=== PATIENT | female | born 1960 | race Caucasian/White ===

== ENCOUNTER 2017-09-11 14:38 | Inpatient (IN) | payer MEDICARE ==
[2017-09-11] MEDS ORDERED: Magnesium 2 GM/NS 0.9% 100 ML 2 GM in Premix Bag 1 BAG IVPB SCH (15:00)
[2017-09-11] MEDS ORDERED: Azithromycin 500 MG in Sodium Chloride 0.9% 250 ML 250 ML IVPB SCH (15:00)
[2017-09-11] MEDS ORDERED: Albuterol Sulfate 2.5 mg/0.5 ml Neb ONE ×3 (15:02)
[2017-09-11 15:03] LABS: Oxyhemoglobin 95.4 % (94.0-97.0); Sodium 142 mmol/L (135-148)
[2017-09-11] MEDS ORDERED: Albuterol Sulfate 2.5 mg/3 ml Neb ONE (15:03)
[2017-09-11 15:07] LABS: Spontaneous Rate 16 min
[2017-09-11 15:08] LABS: Mode BIPAP; Pressure Support 15 cmH2O
[2017-09-11 15:23] LABS: Hematocrit 42.3 % (36.0-47.0); Mean Platelet Volume 8.3 fL (7.4-10.4); Red Blood Cell (RBC) Count 5.06 mill/uL (4.20-5.40); White Blood Cell (WBC) Count 20.2 thou/uL (4.8-10.8)
[2017-09-11] MEDS ORDERED: Ketorolac Tromethamine 30 MG/ML VIAL ONE (15:24)
--- NOTE | 2017-09-11 15:36 | RAD ---
PORTABLE CHEST: HISTORY: Dyspnea. COMPARISON: 03/09/2017 FINDINGS: The CP angles are not included on this study. The visualized lung friend appear well aerated and cl ear with no definite infiltrate seen. The heart is mildly prominent but is accentuated by this proj ection. IMPRESSION: No evidence of acute process. The costophrenic angles are not evaluated. POS: [facility]
[2017-09-11 15:46] LABS: ALT (SGPT) 9 U/L (8-55); AST (SGOT) 9 U/L (5-34); Alkaline Phosphatase 135 U/L (40-150); Anion Gap 14 mmol/L (10-20); BUN (Urea Nitrogen) 13 mg/dL (9.8-20.1); Bilirubin, Total 0.3 mg/dL (0.2-1.2); Calc. Creatinine Clearance 0 mL/min (70-130); Calcium 9.3 mg/dL (7.8-10.44); Carbon Dioxide 29 mmol/L (22-29); Chloride 102 mmol/L (98-107); Estimated GFR-MDRD Greater than 90; Protein, Total 7.7 g/dL (6.0-8.3)
[2017-09-11 15:51] LABS: Troponin I 0.012 ng/mL (< 0.028)
[2017-09-11 15:56] LABS: Band 10 % (5-11); Neutrophil 79 % (42-75)
[2017-09-11] MEDS ORDERED: cefTRIAXone\\ROCEPHIN 1 GM VIAL ONE (16:30)
[2017-09-11] MEDS ORDERED: cefTRIAXone\\ROCEPHIN 1 GM, Admixture Fee 1 EACH in Sodium Chloride 0.9% 100 ML IVPB SCH ×2 (16:45→20:00)
[2017-09-11 17:20] LABS: Oxyhemoglobin 87.2 % (94.0-97.0); Sodium 141 mmol/L (135-148)
[2017-09-11 17:23] LABS: Mode BIPAP; Modified Allen's Test POSITIVE; Pressure Support 15 cmH2O
[2017-09-11] MEDS ORDERED: Acetaminophen 650 MG Suppository ONE (17:27)
[2017-09-11] MEDS ORDERED: Acetaminophen 325 MG TAB PO PRN ×2 (18:07→18:09)
[2017-09-11] MEDS ORDERED: Ondansetron HCl/PF 4 MG/2 ML Vial IVP PRN ×2 (18:07→18:09)
[2017-09-11] MEDS ORDERED: HYDROcodone/Acetaminophen 5/325 mg Tablet PO PRN ×3 (18:07→18:09)
[2017-09-11] MEDS ORDERED: Ondansetron ODT 4 MG TAB SL PRN (18:07)
[2017-09-11] MEDS ORDERED: Lorazepam 2 MG/ML VIAL SLOW IVP PRN (18:09)
[2017-09-11] MEDS ORDERED: traZODone HCl 50 MG TAB PO PRN (18:09)
[2017-09-11] MEDS ORDERED: hydrALAZINE 20 MG/ML VIAL SLOW IVP PRN (18:09)
[2017-09-11] MEDS ORDERED: Acetaminophen 650 MG Suppository PR PRN (18:09)
[2017-09-11] MEDS ORDERED: Mag-Al 1200 mg/1200 mg/30 ML UDCUP PO PRN (18:09)
[2017-09-11] MEDS ORDERED: Lorazepam 0.5 MG TAB PO PRN (18:14)
[2017-09-11 18:21] LABS: Troponin I Less than 0.010 ng/mL (< 0.028)
[2017-09-11] MEDS ORDERED: Propofol 1,000 MG/100 ML VIAL IV ONE (18:42)
[2017-09-11] MEDS: Midazolam HCl 2 mg/2 ml Vial ONE ×2 (18:46→18:47)
[2017-09-11] MEDS ORDERED: Sterile Water 10 ML ONE (18:49)
[2017-09-11] MEDS ORDERED: Vecuronium 10 MG VIAL ONE (18:49)
[2017-09-11] MEDS: Sodium Chloride 0.9% 1,000 ML IV SCH (19:00)
[2017-09-11] MEDS: Famotidine/PF 20 mg/2ml Vial SLOW IVP SCH (20:01)
[2017-09-11 21:37] LABS: Troponin I Less than 0.010 ng/mL (< 0.028)
--- NOTE | 2017-09-11 21:42 | HP ---
PRIMARY CARE PHYSICIAN: Dr. Wayne. LICENSED NURSING ASSISTANT: Dr. Prasad. CHIEF COMPLAINT: Shortness of breath. HISTORY OF PRESENT ILLNESS: The history of present illness is more or less limited as the patient i s currently on BiPAP and has some significant dyspnea, but the patient has a history of fairly sever e COPD in fact, she was recently admitted to our facility back in March for her COPD exacerbation in [facility] case, the patient required mechanical intubation and tracheostomy and was eventually discharged to LTAC. She says she went home in May after a prolonged hospitalization both in a local LTAC and then she was eventually transferred to [facility] in [place], [place]. She said she had been doing f airly well at home and she is on home oxygen as needed as well as a BiPAP that she has at home until Thursday when she says that her son got sick and \\\\"brought it home to the rest of the family.\\\\" Sh lani says that she has been coughing with productive brown sputum, feeling achy all over with subjectiv e fever and chills. She felt confused and dehydrated and for this reason she came to the ER. She c alled EMS in order to be transported to the hospital. When EMS arrived, her oxygen saturations were in the 60s. She was placed on BiPAP in which her O2 sats improved to the 80s and 90s and she had a gas in which her pH was acidotic at 7.25 and she was hypercapnic and she is being admitted for jez re COPD exacerbation. REVIEW OF SYSTEMS: Constitutional: She has had subjective fever and chills. No night sweats or we ight loss. HEENT: She said she has had some headache, but no sore throat. She has had rhinorrhea, but no neck pain, no adenopathy. Pulmonary: As the history of present illness. Cardiovascular: She says she has had pain in her chest, but she says she \\\\"hurts all over.\\\\"No PND, no orthopnea. Gastrointestinal: No abdominal pain, no nausea, no vomiting, no change in bowels. Genitourinary: No urinary frequency, hematuria, no hesitancy. Neurologic: No focal weakness, numbness, no seizur es. Psychiatric: No symptoms of anxiety or depression. Skin and integument: No skin changes. No rash. 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 PAST SURGICAL HISTORY: She has had a total abdominal hysterectomy. ALLERGIES: No known drug allergies. SOCIAL HISTORY: She is . She is a former smoker; however, she does admit to occasionally \\\\ "falling off the wagon\\\\" with cigarettes and smokes off and on. Denies any alcohol use. FAMILY HISTORY: Significant for hypertension, diabetes, and asthma. MEDICATIONS: Include ProAir and nebulizer and a blood pressure medication. The medications from [facility] emergency room which she says she gave the ER nurse include amlodipine 2.5 mg daily, hydrochlorot hiazide 25 mg daily, trazodone 50 mg once a day and DuoNebs. PHYSICAL EXAMINATION: GENERAL: She is alert and oriented. She appears to be in some distress. VITAL SIGNS: Her blood pressure was 108/80, heart rate is 126, respiratory rate of 28. HEENT: Pupils are equal, round, and reactive. Extraocular muscles are intact. Sclerae are anicter ic. Throat no erythema, no exudates. NECK: No adenopathy, no bruits. LUNGS: She has got decrease in air movement with some minimal wheezing, no rales. CARDIOVASCULAR: She has a normal S1, S2. No S3 or S4. No murmurs, clicks or rubs. ABDOMEN: Obese, soft, nontender, nondistended. Positive for bowel sounds. No rebound, no guarding . EXTREMITIES: There is some mild edema. NEUROLOGICAL: The exam is nonfocal. LABORATORY DATA: White blood cell count is 20.2, hemoglobin 12.6, hematocrit is 42.3, platelet coun t is 359. Sodium 141, potassium 4.1, chloride is 102, CO2 is 29, BUN of 13, creatinine 0.65, glucos e is 168. ASSESSMENT AND PLAN: This is a 57-year-old female that is presenting with acute hypercapnic respira tory failure with hypoxemia as well, likely as a result of chronic obstructive pulmonary disease exa cerbation. Chest x-ray has findings consistent with chronic obstructive pulmonary disease without a ny evidence of any acute infiltrate. Given the severity of her acute presentation as well as was [facility] severity of her past presentation, she is being admitted to the [facility]. I have notified Pulmonary C ritical Care [employer] and have made a formal consultation. We will repeat her ABG now that she has h ad some time on BiPAP. I have discussed code status with the patient and she would like to remain a FULL CODE. She states that if she were to decompensate, she would like to be placed on a ventilato r. She will be placed in the IMCU and continue BiPAP for now. She will be placed on IV steroids as well as empiric IV antibiotics. Placed her on deep venous thrombosis and gastrointestinal prophyla xis and currently will place her on a p.r.n. medication for blood pressure as well as some maintenan ce fluids.
[2017-09-11] MEDS ORDERED: DISCONTINUE PREVIOUS NARCOTIC PAIN MEDICATIONS AND BENZODIAZEPINES FS SCH (22:47)
[2017-09-12] MEDS: Propofol 1,000 MG/100 ML VIAL IV PRN ×5 (01:15→20:52)
[2017-09-12 05:20] LABS: Band 3 % (5-11); Mean Platelet Volume 8.4 fL (7.4-10.4); Neutrophil 90 % (42-75); Red Blood Cell (RBC) Count 4.58 mill/uL (4.20-5.40); White Blood Cell (WBC) Count 15.9 thou/uL (4.8-10.8)
[2017-09-12 05:27] LABS: Anion Gap 17 mmol/L (10-20); BUN (Urea Nitrogen) 15 mg/dL (9.8-20.1); Calc. Creatinine Clearance 136 mL/min (70-130); Calcium 8.7 mg/dL (7.8-10.44); Carbon Dioxide 23 mmol/L (22-29); Chloride 107 mmol/L (98-107); Estimated GFR-MDRD Greater than 90
[2017-09-12] MEDS ORDERED: Spiriva 18 MCG CAP (Box of 5 Caps) INH SCH (07:00)
[2017-09-12 07:10] LABS: Mechanical Tidal Volume 400 ml; Modified Allen's Test POSITIVE; Oxyhemoglobin 94.9 % (94.0-97.0); Pressure Support 10 cmH2O; Sodium 143 mmol/L (135-148); Vent YES
--- NOTE | 2017-09-12 07:10 | CON ---
DATE OF CONSULTATION: 09/11/2017 HISTORY OF PRESENT ILLNESS: Lisa is a 57-year-old female, who was intubated earlier this year. A pparently, she had a tracheostomy, went to an [facility] hospital. She presented today with respiratory distress. I was consulted by the Hospitalist. Her blood gas failed to improve with noninvasive ventilation in the ER. Her pH was 7.25 on presenta tion, 7.26 on followup blood gas 4-1/2 hours later. The first blood gas was done at 1500 hours. Re commended intubation. PAST MEDICAL HISTORY: Remarkable for; 1. Being field intubated in 02/2017 after being seen by 3 days earlier and diagnosed with bronchiti s in the Emergency Department over at [place] 2. History of lipid disorder. 3. History of obstructive lung disease. 4. History of trach and a PEG. 5. History of hypertension. 6. History of hysterectomy. 7. History of obesity. SOCIAL HISTORY: She is a former smoker, apparently does not smoke and does not drink. ALLERGIES: Reports no drug allergies. FAMILY HISTORY: Negative for lung disease at an early age. PHYSICAL EXAMINATION: VITAL SIGNS: Blood pressure is in the 120s, heart rate was 130, respiratory rate was in the 30s. GENERAL: She is using all her accessory muscles. She is speaking in three-word sentences. HEENT: Pupils are equal. Sclerae is anicteric. NECK: Supple. No lymphadenopathy. LUNGS: Remarkable for distant breath sounds. HEART: Regular rhythm. ABDOMEN: Soft. EXTREMITIES: Without asymmetry. IMAGING AND LABORATORY DATA: Chest radiograph may show a left basilar infiltrate. White count 20.2 , hemoglobin 12.6, platelets 359,000. Electrolytes are normal. IMPRESSION: 1. Respiratory failure. 2. History of tracheostomy and PEG. 3. ? left lower lobe pneumonia. 4. Chronic obstructive pulmonary disease. PLAN: Intubation support, antimicrobial therapy, steroids, nebulizer treatments.
[2017-09-12 07:11] LABS: Mode SIMV
[2017-09-12] MEDS: Fentanyl 20 MCG/ML 250 ML IVPB SCH (07:13)
[2017-09-12] MEDS: Lorazepam 2 MG/ML VIAL SLOW IVP PRN (07:37)
[2017-09-12] MEDS: Sodium Chloride 0.9% 1,000 ML IV SCH ×2 (07:38→15:00)
--- NOTE | 2017-09-12 07:42 | OP ---
DATE: 09/11/2017 PROCEDURE: Fiberoptic sedation. Patient was sedated with 1 mg of Versed. Bronchoscope was introduced and easily passed into her tra nicolas. The vocal cords appeared normal. I did not see any subglottic stenosis. I had a little diff iculty advancing the endotracheal tube over the scope, but eventually, was able to get the endotrach eal tube in proper position at 24 cm above the darwin. She was then sedated with a total of 4 Verse d and started on propofol drip and then chemically paralyzed with vecuronium once she was sedated. I met with her and answered all of his questions. Critical care time 40 minutes, independent of the procedure.
--- NOTE | 2017-09-12 08:01 | PDOC.PN ---
- Subjective Encounter Start Date: 09/12/17 Encounter Start Time: 08:00 Ms. Gonzalez is awake and alert. She indicates that she is comfortable on the ventilator. - Objective Resuscitation Status: Resuscitation Status FULL:Full Resuscitation MAR Reviewed: Yes Vital Signs & Weight: Vital Signs (12 hours) Temp Pulse Resp BP Pulse Ox 09/12/17 07:02 87 128/69 09/12/17 06:59 82 25 H 98 09/12/17 06:00 24 H 09/12/17 04:00 98.7 F 09/12/17 02:32 87 09/12/17 02:00 17 09/12/17 00:50 92 22 H 99 09/12/17 00:00 98.8 F 17 09/11/17 22:38 96 09/11/17 22:00 17 Most Recent Monitor Data Heart Rate from ECG 92 NIBP 131/65 NIBP BP-Mean 84 Respiration from ECG 25 SpO2 96 I&O: 09/11/17 09/12/17 09/13/17 06:59 06:59 06:59 Intake Total 1108 Output Total 675 Balance 433 Result Diagrams: 09/12/17 04:15 09/12/17 04:14 Phys Exam - Physical Examination HEENT: PERRLA Respiratory: no rales + coarse breath sounds, and mild expiratory wheeze Cardiovascular: RRR, no significant murmur, no rub Gastrointestinal: soft, non-tender, positive bowel sounds Musculoskeletal: no edema Dx/Plan (1) COPD exacerbation Code(s): J44.1 - CHRONIC OBSTRUCTIVE PULMONARY DISEASE W (ACUTE) EXACERBATION Status: Acute (2) Acute respiratory failure with hypoxia and hypercapnia Code(s): J96.01 - ACUTE RESPIRATORY FAILURE WITH HYPOXIA; J96.02 - ACUTE RESPIRATORY FAILURE WITH HYPERCAPNIA Status: Acute (3) Obesity Code(s): E66.9 - OBESITY, UNSPECIFIED Status: Acute (4) Hypertension Code(s): I10 - ESSENTIAL (PRIMARY) HYPERTENSION Status: Chronic - Plan * Acute on chronic respiratory failure- She was place on mechanical ventilation last night * Continue IV steroids, and IV antibiotics * Neb treatment . * Nutritional support- consider tube feeds if she remains intubated * HTN- blood pressure is controlled- continue PRN medication as needed
--- NOTE | 2017-09-12 08:43 | RAD ---
CHEST 1 VIEW: Date: 09/11/17 HISTORY: Respiratory distress. FINDINGS: Interval placement of endotracheal and nasogastric tube. Normal cardiac silhouette. Pulmonary vessel s are prominent. Patchy reticulonodular opacities. No pleural effusion or pneumothorax. IMPRESSION: Volume overload. Continued surveillance. POS: [facility]
[2017-09-12] MEDS ORDERED: FLU VACC QS2017-18 36 mo. & older 0.5 ML SYRINGE IM ONE (09:00)
[2017-09-12] MEDS: Enoxaparin Sodium 40 MG/0.4 ML SYRINGE SC SCH (09:12)
[2017-09-12] MEDS: Famotidine/PF 20 mg/2ml Vial SLOW IVP SCH ×2 (09:13→20:51)
[2017-09-12] MEDS: Azithromycin 500 MG in Sodium Chloride 0.9% 250 ML 250 ML IVPB SCH (15:04)
--- NOTE | 2017-09-12 15:08 | PRG ---
DATE OF SERVICE: 09/11/2017 SUBJECTIVE: Linda Gonzalez will awaken and move all of her extremities. Her was at the beds rohit. OBJECTIVE: VITAL SIGNS: Heart rate is in the 90s, blood pressure 103/64, respiratory rate was in the teens. LUNGS: She actually has more audible breath sounds today with wheezes of greater intensity, suggest ing she started to open up. Her inspiratory time had to be shortened to allow for her to exhale. HEART: Regular rhythm. ABDOMEN: Soft. LABORATORY DATA: White count 15.9, hemoglobin 11.1, platelets 291: Sodium 142, potassium 4.8, chlo ride 107, bicarbonate 23, BUN 15, creatinine 0.6, glucose 177. A pH 7.36, CO2 of 51, pO2 of 71. IMPRESSION: 1. Respiratory failure. 2. Chronic obstructive pulmonary disease exacerbation, likely triggered by viral illness in multipl e family members. 3. History of tracheostomy earlier this year. Start her on some nutritional support with [facility] equivalent. 4. Continue steroids and antimicrobial therapy. Critical care time was 30 minutes.
[2017-09-12] MEDS: cefTRIAXone\\ROCEPHIN 2 GM, Admixture Fee 1 EACH in Sodium Chloride 0.9% 100 ML IVPB SCH (16:10)
[2017-09-12] MEDS ORDERED: cefTRIAXone\\ROCEPHIN 1 GM, Admixture Fee 1 EACH in Sodium Chloride 0.9% 100 ML IVPB SCH (17:00)
[2017-09-13] MEDS: Propofol 1,000 MG/100 ML VIAL IV PRN ×5 (01:02→23:24)
[2017-09-13 05:13] LABS: Band 3 % (5-11); Hematocrit 35.8 % (36.0-47.0); Mean Platelet Volume 8.2 fL (7.4-10.4); Neutrophil 89 % (42-75); Red Blood Cell (RBC) Count 4.29 mill/uL (4.20-5.40); White Blood Cell (WBC) Count 14.2 thou/uL (4.8-10.8)
[2017-09-13] MEDS: Sodium Chloride 0.9% 1,000 ML IV SCH ×2 (05:53→21:33)
[2017-09-13 07:17] LABS: Oxyhemoglobin 95.4 % (94.0-97.0); Sodium 142 mmol/L (135-148)
[2017-09-13] MEDS: Lorazepam 2 MG/ML VIAL SLOW IVP PRN ×2 (07:22→12:23)
[2017-09-13 07:54] LABS: Mechanical Tidal Volume 400 ml; Modified Allen's Test POSITIVE; Pressure Support 10 cmH2O; Vent YES
[2017-09-13 07:55] LABS: Mode SIMV.PSV
[2017-09-13] MEDS: Famotidine/PF 20 mg/2ml Vial SLOW IVP SCH ×2 (08:34→21:34)
[2017-09-13] MEDS: Enoxaparin Sodium 40 MG/0.4 ML SYRINGE SC SCH (08:34)
--- NOTE | 2017-09-13 08:59 | RAD ---
1 VIEW CHEST: Date: 09/13/17 COMPARISON: 09/12/17. HISTORY: Respiratory distress. Ventilated patient. FINDINGS: Stable endotracheal and nasogastric tube. Slightly improved aeration of lung parenchyma. Reticulonod ular opacities are slightly less evident. Stable cardiac silhouette. No pleural effusion or pneumoth orax. IMPRESSION: Slight improved aeration of lung parenchyma. POS: [facility]
--- NOTE | 2017-09-13 09:53 | PDOC.PN ---
- Subjective Encounter Start Date: 09/13/17 Encounter Start Time: 09:52 Ms. Gonzalez is intubated, she is awake and alert. - Objective Resuscitation Status: Resuscitation Status FULL:Full Resuscitation MAR Reviewed: Yes Vital Signs & Weight: Vital Signs (12 hours) Temp Pulse Resp BP Pulse Ox 09/13/17 08:00 98.7 F 09/13/17 06:47 74 114/66 09/13/17 06:43 73 10 L 99 09/13/17 06:00 10 L 09/13/17 04:00 98.8 F 10 L 09/13/17 02:41 85 09/13/17 02:00 10 L 09/13/17 01:00 98.6 F 09/13/17 00:41 72 09/13/17 00:40 71 18 99 09/13/17 00:00 10 L 09/12/17 22:22 89 09/12/17 21:58 10 L Weight Admit Weight 179 lb 10.816 oz Weight 177 lb 7.554 oz Most Recent Monitor Data Heart Rate from ECG 90 NIBP 117/67 NIBP BP-Mean 91 Respiration from ECG 16 SpO2 90 I&O: 09/12/17 09/13/17 09/14/17 06:59 06:59 06:59 Intake Total 1108 2875.4 Output Total 675 850 70 Balance 433 2025.4 -70 Result Diagrams: 09/13/17 04:02 09/12/17 04:14 Phys Exam - Physical Examination HEENT: PERRLA Respiratory: wheezing present + bilateral expiratory wheeze, no rales Cardiovascular: RRR, no significant murmur + S4? Gastrointestinal: soft, positive bowel sounds trace edema Dx/Plan (1) COPD exacerbation Code(s): J44.1 - CHRONIC OBSTRUCTIVE PULMONARY DISEASE W (ACUTE) EXACERBATION Status: Acute (2) Acute respiratory failure with hypoxia and hypercapnia Code(s): J96.01 - ACUTE RESPIRATORY FAILURE WITH HYPOXIA; J96.02 - ACUTE RESPIRATORY FAILURE WITH HYPERCAPNIA Status: Acute (3) Obesity Code(s): E66.9 - OBESITY, UNSPECIFIED Status: Acute (4) Hypertension Code(s): I10 - ESSENTIAL (PRIMARY) HYPERTENSION Status: Chronic - Plan * Acute on chronic respiratory failure- due to COPD exacerbation * Continue Ventilator support as per Pulmonary * Continue Steroids IV * Continue empiric Antibiotics for Respiratory Coverage * HTN- blood pressure is stable.
[2017-09-13] MEDS: Fentanyl 20 MCG/ML 250 ML IVPB SCH (14:25)
--- NOTE | 2017-09-13 14:51 | PRG ---
DATE OF SERVICE: 09/13/2017 Critical care time 30 minutes.
--- NOTE | 2017-09-13 16:35 | PRG ---
DATE OF SERVICE: 09/13/2017 SUBJECTIVE: She is sedated for ventilation; she will awaken and move her extremities. OBJECTIVE: GENERAL: She is in no distress. VITAL SIGNS: Heart rate is 95, blood pressure 121/69. She is afebrile, respiratory rate 16. She i s still has a 6 to 7-second exhale time, wheezes are still audible; however, there were not audible on presentation when she is intubated. HEART: Regular rhythm. ABDOMEN: Soft. EXTREMITIES: Without asymmetry. LABORATORY DATA: White count 14.3, hemoglobin 10.4, and platelets 287. Sodium 142, potassium 4.8, chloride 107, bicarbonate 23, BUN 15, creatinine 0.6, pH 7.26, pCO2 67, pO2 93. IMPRESSION: 1. Chronic obstructive pulmonary disease exacerbation with respiratory failure. 2. Bilateral patchy infiltrates most likely secondary to mucus plugging and atelectasis, given that they are improving on today's radiograph. 3. History of recent tracheostomy for respiratory failure and long period of time in the hospital w ith followup LTAC hospitalization, her states she is doing well prior to this event, still f elt that this is likely triggered by viral illness. She is not improving quickly, met the a nd updated him.
[2017-09-13] MEDS: Azithromycin 500 MG in Sodium Chloride 0.9% 250 ML 250 ML IVPB SCH (16:40)
[2017-09-13] MEDS: cefTRIAXone\\ROCEPHIN 2 GM, Admixture Fee 1 EACH in Sodium Chloride 0.9% 100 ML IVPB SCH (16:40)
[2017-09-14 04:24] LABS: Band 1 % (5-11); Hematocrit 35.8 % (36.0-47.0); Mean Platelet Volume 8.1 fL (7.4-10.4); Metamyelocyte 1 % (0-0); Neutrophil 84 % (42-75); Red Blood Cell (RBC) Count 4.25 mill/uL (4.20-5.40); White Blood Cell (WBC) Count 11.8 thou/uL (4.8-10.8)
[2017-09-14] MEDS: Propofol 1,000 MG/100 ML VIAL IV PRN ×4 (04:24→20:43)
[2017-09-14 07:12] LABS: Oxyhemoglobin 95.7 % (94.0-97.0); Sodium 142 mmol/L (135-148)
[2017-09-14 07:15] LABS: Mechanical Tidal Volume 400 ml; Mode SIMV.PSV; Modified Allen's Test POSITIVE; Pressure Support 10 cmH2O; Vent YES
[2017-09-14] MEDS: Enoxaparin Sodium 40 MG/0.4 ML SYRINGE SC SCH (07:22)
[2017-09-14] MEDS: Famotidine/PF 20 mg/2ml Vial SLOW IVP SCH ×2 (07:22→20:43)
--- NOTE | 2017-09-14 07:55 | PRG ---
DATE OF SERVICE: 09/14/2017 Thirty-five minutes critical care time. SUBJECTIVE: The patient remains intubated on mechanical ventilation. She will wake up. She moves all 4 extremities spontaneously. PHYSICAL EXAMINATION: VITAL SIGNS: Temperature is 98.8, pulse 96, blood pressure 140/70, total intake for 24 hours 3703, output 945, weight 176 pounds. HEENT: Unremarkable. NECK: No JVD. LUNGS: Poor air movement bilaterally. CARDIAC: S1, S2, slightly tachycardic. ABDOMEN: Soft, nontender. She is tolerating tube feeds. EXTREMITIES: No clubbing, cyanosis, or edema. LABORATORY DATA: White blood cell count 11.8, hematocrit 35.8, platelet count 277. PH 7.24, pCO2 o f 81, pO2 of 88 on SIMV rate 10, tidal volume 400, PEEP 5, pressure support 10, FiO2 of 30%. Sodium 142, potassium 4.8, chloride 107, CO2 of 23, BUN 15, creatinine 0.6, glucose 177. ASSESSMENT: 1. Acute respiratory failure, requiring mechanical ventilation. 2. Chronic obstructive pulmonary disease with exacerbation. 3. History of previous tracheostomy placement. PLAN: 1. I have adjusted the ventilator settings, which encompassed increasing her tidal volume. 2. Continue IV steroids. 3. Continue enteral tube feeds. 4. I feel like it will be many days until the patient can be extubated.
[2017-09-14] MEDS: Sodium Chloride 0.45% 1,000 ML IV SCH (08:36)
--- NOTE | 2017-09-14 09:13 | PDOC.PN ---
- Subjective Encounter Start Date: 09/14/17 Encounter Start Time: 09:11 Ms. Gonzalez is intubated and sedated. No complaints voiced. - Objective Resuscitation Status: Resuscitation Status FULL:Full Resuscitation MAR Reviewed: Yes Vital Signs & Weight: Vital Signs (12 hours) Temp Pulse Resp BP Pulse Ox 09/14/17 08:00 98.9 F 10 L 09/14/17 07:25 98.9 F 98 16 97 09/14/17 06:34 90 134/76 09/14/17 06:32 87 11 L 99 09/14/17 06:00 10 L 09/14/17 04:00 98.8 F 10 L 09/14/17 02:13 93 09/14/17 02:00 16 09/14/17 00:26 82 10 L 97 09/14/17 00:00 98.8 F 10 L 09/13/17 22:11 78 09/13/17 22:00 10 L Weight Admit Weight 179 lb 10.816 oz Weight 176 lb 5.917 oz Most Recent Monitor Data Heart Rate from ECG 88 NIBP 152/70 NIBP BP-Mean 122 Respiration from ECG 11 SpO2 99 I&O: 09/13/17 09/14/17 09/15/17 06:59 06:59 06:59 Intake Total 2875.4 3703.2 221 Output Total 850 945 215 Balance 2025.4 2758.2 6 Result Diagrams: 09/14/17 03:30 09/12/17 04:14 Phys Exam - Physical Examination HEENT: PERRLA Respiratory: wheezing present no rales Cardiovascular: RRR, no significant murmur, no rub Gastrointestinal: soft, non-tender, positive bowel sounds Musculoskeletal: no edema Dx/Plan (1) COPD exacerbation Code(s): J44.1 - CHRONIC OBSTRUCTIVE PULMONARY DISEASE W (ACUTE) EXACERBATION Status: Acute (2) Acute respiratory failure with hypoxia and hypercapnia Code(s): J96.01 - ACUTE RESPIRATORY FAILURE WITH HYPOXIA; J96.02 - ACUTE RESPIRATORY FAILURE WITH HYPERCAPNIA Status: Acute (3) Obesity Code(s): E66.9 - OBESITY, UNSPECIFIED Status: Acute (4) Hypertension Code(s): I10 - ESSENTIAL (PRIMARY) HYPERTENSION Status: Chronic - Plan * Acute on chronic respiratory failure- due to COPD exacerbation * Continue Neb treatment * Continue Steroids * HTN- blood pressure is stable overall. Continue PRN Hydralazine as needed * Slowly weaning from Ventilator as per Pulmonary and Critical Care team.
--- NOTE | 2017-09-14 10:45 | RAD ---
PORTABLE AP CHEST X-RAY: 09/14/2017 HISTORY: On ventilator. Follow-up evaluation. COMPARISON: 09/13/2017 FINDINGS: Endotracheal tube and nasogastric tube are unchanged in position. Cardiac silhouette is within norm al limits. Nonspecific increased linear densities in the upper lung zones are again seen and unchan ged. There has been no significant interval change when compared to the prior exam. IMPRESSION: Stable chest. POS: [facility]
[2017-09-14] MEDS: Lorazepam 2 MG/ML VIAL SLOW IVP PRN ×2 (10:58→20:50)
[2017-09-14] MEDS: Azithromycin 500 MG in Sodium Chloride 0.9% 250 ML 250 ML IVPB SCH (16:44)
[2017-09-14] MEDS: cefTRIAXone\\ROCEPHIN 2 GM, Admixture Fee 1 EACH in Sodium Chloride 0.9% 100 ML IVPB SCH (17:01)
[2017-09-15] MEDS: Sodium Chloride 0.45% 1,000 ML IV SCH (00:05)
[2017-09-15] MEDS: Propofol 1,000 MG/100 ML VIAL IV PRN ×6 (01:20→23:51)
[2017-09-15 05:00] LABS: Hematocrit 35.4 % (36.0-47.0); Red Blood Cell (RBC) Count 4.26 mill/uL (4.20-5.40)
[2017-09-15 05:24] LABS: Band 1 % (5-11); Neutrophil 81 % (42-75)
[2017-09-15 07:28] LABS: Oxyhemoglobin 93.9 % (94.0-97.0); Sodium 139 mmol/L (135-148)
[2017-09-15] MEDS ORDERED: Furosemide 40 MG/4 ML VIAL SLOW IVP SCH (07:30)
[2017-09-15] MEDS: Fentanyl 20 MCG/ML 250 ML IVPB SCH (07:36)
[2017-09-15] MEDS: Famotidine/PF 20 mg/2ml Vial SLOW IVP SCH (07:37)
[2017-09-15] MEDS: Enoxaparin Sodium 40 MG/0.4 ML SYRINGE SC SCH (07:37)
--- NOTE | 2017-09-15 07:52 | PRG ---
DATE OF SERVICE: 09/15/2017 Thirty-five minutes critical care time. SUBJECTIVE: The patient remains intubated on mechanical ventilation. There have been no acute fernandez ges overnight. PHYSICAL EXAMINATION: VITAL SIGNS: Temperature is 98.4, pulse 85, blood pressure 153/79, 24-hour intake 3610 and output 2 602, weight currently 191 pounds. HEENT: Unremarkable. NECK: No JVD. LUNGS: Expiratory wheezing bilaterally, prolonged expiratory phase on mechanical ventilation wavefo vivian. CARDIAC: S1 and S2 regular. ABDOMEN: Soft, nontender, nondistended. EXTREMITIES: No clubbing or cyanosis. Trace edema. LABORATORY DATA: White blood cell count 13, hematocrit 35.4, platelet count 253. Sodium 142, potas sium 4.8, chloride 107, CO2 of 23, BUN 15, creatinine 0.6, glucose 177. ASSESSMENT: 1. Acute respiratory failure, requiring mechanical ventilation. 2. Chronic obstructive pulmonary disease with exacerbation. 3. History of previous tracheostomy placement. PLAN: 1. Continue mechanical ventilation until her air trapping resolves. 2. Continue IV steroids. 3. Continue enteral tube feeds. 4. One dose diuretics.
--- NOTE | 2017-09-15 08:06 | PDOC.PN ---
- Subjective Encounter Start Date: 09/15/17 Encounter Start Time: 08:04 Ms. Gonzalez is intubated and sedated. When sedation is lifted she is awake, and can be a bit agitated. - Objective Resuscitation Status: Resuscitation Status FULL:Full Resuscitation MAR Reviewed: Yes Vital Signs & Weight: Vital Signs (12 hours) Temp Pulse Resp BP Pulse Ox 09/15/17 07:06 85 155/84 H 09/15/17 07:02 78 10 L 99 09/15/17 06:00 98.4 F 13 09/15/17 04:00 10 L 09/15/17 02:40 55 L 09/15/17 02:00 10 L 09/15/17 00:00 98.4 F 09/14/17 23:29 57 L 130/56 L 09/14/17 23:28 99 Weight Admit Weight 179 lb 10.816 oz Weight 191 lb 2.252 oz Most Recent Monitor Data Heart Rate from ECG 85 NIBP 153/79 NIBP BP-Mean 109 Respiration from ECG 21 SpO2 98 I&O: 09/14/17 09/15/17 09/16/17 06:59 06:59 06:59 Intake Total 3703.2 3610.2 Output Total 945 2602 Balance 2758.2 1008.2 Result Diagrams: 09/15/17 03:59 09/12/17 04:14 Phys Exam - Physical Examination HEENT: PERRLA Respiratory: no wheezing + occasional rhonchi Cardiovascular: RRR, no significant murmur Gastrointestinal: soft, non-tender, positive bowel sounds Musculoskeletal: edema present trace pedal edema Dx/Plan (1) COPD exacerbation Code(s): J44.1 - CHRONIC OBSTRUCTIVE PULMONARY DISEASE W (ACUTE) EXACERBATION Status: Acute (2) Acute respiratory failure with hypoxia and hypercapnia Code(s): J96.01 - ACUTE RESPIRATORY FAILURE WITH HYPOXIA; J96.02 - ACUTE RESPIRATORY FAILURE WITH HYPERCAPNIA Status: Acute (3) Obesity Code(s): E66.9 - OBESITY, UNSPECIFIED Status: Acute (4) Hypertension Code(s): I10 - ESSENTIAL (PRIMARY) HYPERTENSION Status: Chronic - Plan * Acute on chronic respiratory failure with hypoxemia, and hypercapnia- due to COPD exacerbation- continue Vent support * Slowly weaning as per Dr. Prasad * HTN- blood pressure has been more or less stable * Nutritional support - tube feeds
[2017-09-15 08:11] LABS: Mechanical Tidal Volume 450 ml; Mode SIMV.PSV; Modified Allen's Test POSITIVE; Pressure Support 10 cmH2O; Vent YES
[2017-09-15 09:42] LABS: Calcium 9.1 mg/dL (7.8-10.44); Chloride 96 mmol/L (98-107)
--- NOTE | 2017-09-15 09:42 | RAD ---
PORTABLE AP CHEST: Date: 09/15/17 HISTORY: On ventilator. Follow-up evaluation. COMPARISON: 09/14/17. FINDINGS: Endotracheal tube and nasogastric tube remain in place and unchanged in position. Cardiac silhouette and pulmonary vasculature are within normal limits. Again noted are mild increased interstitial den sities in the lung apices bilaterally. There has been no interval change from prior exam. IMPRESSION: Stable chest. POS: [facility]
[2017-09-15 09:44] LABS: Anion Gap 12 mmol/L (10-20); Carbon Dioxide 34 mmol/L (22-29)
[2017-09-15 09:46] LABS: Calc. Creatinine Clearance 150 mL/min (70-130); Estimated GFR-MDRD Greater than 90
[2017-09-15 09:47] LABS: BUN (Urea Nitrogen) 13 mg/dL (9.8-20.1)
[2017-09-15] MEDS: Azithromycin 500 MG in Sodium Chloride 0.9% 250 ML 250 ML IVPB SCH (15:50)
[2017-09-15] MEDS: cefTRIAXone\\ROCEPHIN 2 GM, Admixture Fee 1 EACH in Sodium Chloride 0.9% 100 ML IVPB SCH (17:19)
[2017-09-15] MEDS: Famotidine 20 MG TAB PO SCH (21:10)
[2017-09-16] MEDS: Lorazepam 2 MG/ML VIAL SLOW IVP PRN (01:41)
[2017-09-16] MEDS: Propofol 1,000 MG/100 ML VIAL IV PRN ×5 (04:45→22:26)
[2017-09-16 05:25] LABS: Hematocrit 35.5 % (36.0-47.0); Red Blood Cell (RBC) Count 4.31 mill/uL (4.20-5.40); White Blood Cell (WBC) Count 10.7 thou/uL (4.8-10.8)
[2017-09-16 05:37] LABS: Band 5 % (5-11); Neutrophil 80 % (42-75)
[2017-09-16 06:33] LABS: Anion Gap 11 mmol/L (10-20); BUN (Urea Nitrogen) 19 mg/dL (9.8-20.1); Calc. Creatinine Clearance 145 mL/min (70-130); Calcium 8.9 mg/dL (7.8-10.44); Carbon Dioxide 35 mmol/L (22-29); Chloride 95 mmol/L (98-107); Estimated GFR-MDRD Greater than 90
[2017-09-16 07:16] LABS: Oxyhemoglobin 81.1 % (94.0-97.0); Sodium 136 mmol/L (135-148)
[2017-09-16 07:19] LABS: Mechanical Tidal Volume 450 ml; Mode SIMV; Pressure Support 10 cmH2O; Vent YES
[2017-09-16] MEDS ORDERED: Dextrose 50% Abboject 50 ML SYRINGE SLOW IVP PRN (07:24)
[2017-09-16] MEDS ORDERED: Dextrose 5% in Water 1,000 ML IV PRN (07:24)
--- NOTE | 2017-09-16 07:46 | PRG ---
DATE OF SERVICE: 09/16/2017 Thirty-five minutes critical care time. The patient remains intubated on mechanical ventilation. PHYSICAL EXAMINATION: VITAL SIGNS: Temperature is 99.0, pulse 61, blood pressure 130/59, O2 sat 97%. Total intake for 24 hours 2439 mL, output 3420 mL. HEENT: Unremarkable. NECK: No JVD. CHEST: Expiratory wheezing. CARDIAC: S1 and S2 regular. ABDOMEN: Soft, nontender. EXTREMITIES: No clubbing, cyanosis, or edema. LABORATORY DATA: Sodium 136, potassium 4.7, chloride 95, CO2 35, BUN 19, creatinine 0.6, glucose 24 6. ABG; pH 7.38, pCO2 67, pO2 40, SIMV rate 10, tidal volume 450, PEEP 9, pressure support 10, FIO2 of 21%. White blood cell count 10, hematocrit 35.5, platelet count 232. Chest x-ray is clear. ASSESSMENT: 1. Acute respiratory failure requiring mechanical ventilation. 2. Chronic obstructive pulmonary disease with exacerbation. 3. History of previous tracheostomy placement. PLAN: 1. Decrease steroids. 2. Start sliding scale insulin. 3. Not weanable at the current time. 4. Continue enteral tube feeds. 5. I will try to update later today.
[2017-09-16] MEDS: Enoxaparin Sodium 40 MG/0.4 ML SYRINGE SC SCH (08:02)
[2017-09-16] MEDS: Famotidine 20 MG TAB PO SCH ×2 (08:02→21:27)
--- NOTE | 2017-09-16 08:35 | RAD ---
PORTABLE CHEST: Date: 09-16-17 History: Dyspnea. On ventilator. CCU follow up. Comparison: 09-15-17 FINDINGS: ET tube and NG tube remain in position. ET tube is above the darwin. The lungs appear well aerated a nd clear of infiltrate. Heart size within normal range. IMPRESSION: No acute interval change. POS: [facility]
[2017-09-16] MEDS: Fentanyl 20 MCG/ML 250 ML IVPB SCH (11:39)
[2017-09-16] MEDS: Insulin Regular 300 UNITS/3 ML VIAL SC PRN ×2 (11:55→20:12)
--- NOTE | 2017-09-16 15:27 | PDOC.PN ---
- Subjective Encounter Start Date: 09/16/17 Encounter Start Time: 15:25 Subjective: f/u for acute hypox resp failure on mech vent. Remains sedate on mech -: vent with 40% FIO2. No new events currently. - Objective Resuscitation Status: Resuscitation Status FULL:Full Resuscitation MAR Reviewed: Yes Vital Signs & Weight: Vital Signs (12 hours) Temp Pulse Resp Pulse Ox 09/16/17 14:00 10 L 09/16/17 13:25 54 L 09/16/17 12:00 99.1 F 13 09/16/17 10:24 86 09/16/17 10:00 15 09/16/17 08:00 98.9 F 86 12 99 09/16/17 06:53 60 09/16/17 06:00 10 L 09/16/17 04:00 99.0 F 10 L Weight Admit Weight 179 lb 10.816 oz Weight 188 lb 7.924 oz Most Recent Monitor Data Heart Rate from ECG 63 NIBP 100/44 NIBP BP-Mean 76 Respiration from ECG 10 SpO2 100 I&O: 09/15/17 09/16/17 09/17/17 06:59 06:59 06:59 Intake Total 3610.2 2439.4 30 Output Total 2602 3420 800 Balance 1008.2 -980.6 -770 Result Diagrams: 09/16/17 05:00 09/16/17 05:50 Additional Labs: Accuchecks 09/16/17 11:51 POC Glucose 224 H Microbiology 09/11/17 15:14 Venous blood - Left Hand Blood Culture - Preliminary NO GROWTH AT 48 HOURS 09/11/17 14:45 Venous blood - Left Arm Blood Culture - Preliminary NO GROWTH AT 48 HOURS Laboratory Tests 09/12/17 09/13/17 09/14/17 04:15 04:02 03:30 WBC 15.9 H 14.2 H 11.8 H 09/15/17 03:59 WBC 13.0 H Radiology Reviewed by me: Yes (PCXR - no acute infiltrates, lines/tubes in position) EKG Reviewed by me: Yes (Tele - SR in 60's) Phys Exam - Physical [facility] ETT in place HEENT: PERRLA, oral pharynx no lesions Neck: no JVD, supple diminished in bases Cardiovascular: RRR Gastrointestinal: soft, non-tender, no distention, positive bowel sounds Musculoskeletal: no edema, pulses present Neurological: normal sensation, moves all 4 limbs Skin: normal turgor, cap refill <2 seconds Dx/Plan (1) Acute respiratory failure with hypoxia and hypercapnia Code(s): J96.01 - ACUTE RESPIRATORY FAILURE WITH HYPOXIA; J96.02 - ACUTE RESPIRATORY FAILURE WITH HYPERCAPNIA Status: Acute Comment: Continue mech ventilation with SIMV 40% FIO2, wean as clinically indicated, continue Solumedrol 20mg IV q6h (2) COPD exacerbation Code(s): J44.1 - CHRONIC OBSTRUCTIVE PULMONARY DISEASE W (ACUTE) EXACERBATION Status: Acute Comment: See #1, continue Zithromax 500mg IV daily, Duonebs q4h (3) Leukocytosis Code(s): D72.829 - ELEVATED WHITE BLOOD CELL COUNT, UNSPECIFIED Status: Acute Comment: Improved with current tx, repeat CBC in am (4) Hypertension Code(s): I10 - ESSENTIAL (PRIMARY) HYPERTENSION Status: Chronic Qualifiers: Hypertension type: essential hypertension Qualified Code(s): I10 - Essential (primary) hypertension - Plan continue antibiotics, PT/OT, social human services assistants, speech therapy, respiratory therapy, DVT proph w/SCDs Continue critical support -: continue mech ventilation with SIMV -: Continue Solumedrol 20mg IV q6h -: Continue Zithromax 500mg IV daily -: AM lab: BMP, CBC * .
[2017-09-16] MEDS: Azithromycin 500 MG in Sodium Chloride 0.9% 250 ML 250 ML IVPB SCH (16:23)
[2017-09-16] MEDS: cefTRIAXone\\ROCEPHIN 2 GM, Admixture Fee 1 EACH in Sodium Chloride 0.9% 100 ML IVPB SCH (18:11)
[2017-09-17] MEDS: Insulin Regular 300 UNITS/3 ML VIAL SC PRN ×4 (00:54→17:58)
[2017-09-17] MEDS: Lorazepam 2 MG/ML VIAL SLOW IVP PRN ×2 (01:22→19:37)
[2017-09-17] MEDS: Propofol 1,000 MG/100 ML VIAL IV PRN ×2 (02:58→19:37)
[2017-09-17 05:06] LABS: Anion Gap 12 mmol/L (10-20); BUN (Urea Nitrogen) 22 mg/dL (9.8-20.1); Calc. Creatinine Clearance 148 mL/min (70-130); Calcium 8.8 mg/dL (7.8-10.44); Carbon Dioxide 37 mmol/L (22-29); Chloride 94 mmol/L (98-107); Estimated GFR-MDRD Greater than 90
[2017-09-17 05:36] LABS: Hematocrit 36.8 % (36.0-47.0); Mean Platelet Volume 8.4 fL (7.4-10.4); Neutrophil 78 % (42-75); Red Blood Cell (RBC) Count 4.43 mill/uL (4.20-5.40); White Blood Cell (WBC) Count 13.7 thou/uL (4.8-10.8)
[2017-09-17 07:03] LABS: Sodium 137 mmol/L (135-148)
[2017-09-17 07:06] LABS: Mechanical Tidal Volume 450 ml; Mode PSIMV; Modified Allen's Test POSITIVE; Pressure Support 10 cmH2O; Vent YES
--- NOTE | 2017-09-17 07:38 | PRG ---
DATE OF SERVICE: 09/17/2017 Thirty-five minutes critical care time. This morning she is intubated on mechanical ventilation. She is heavily sedated on propofol. PHYSICAL EXAMINATION: VITAL SIGNS: Temperature 98.7, pulse 60, blood pressure 105/46. Total intake for 24 hours 2382, ou tput 1675. HEENT: Unremarkable. NECK: No JVD. LUNGS: Clear without wheezing or rhonchi. CARDIAC: S1 and S2 regular. ABDOMEN: Soft, obese. EXTREMITIES: No clubbing, cyanosis, or edema. LABORATORY DATA: White blood cell count 13.7, hemoglobin 10.9, hematocrit 36.8, platelet count 275, pH 7.37, pCO2 71, pO2 108. That is on SIMV rate 10, tidal volume 450, PEEP 9, pressure support 10 , FiO2 40%. Sodium 138, potassium 5, chloride 94, CO2 37, BUN 22, creatinine 0.5, glucose 199. [address] x-ray demonstrates no mass, effusion or infiltrate. ASSESSMENT: 1. Chronic obstructive pulmonary disease with exacerbation. 2. Acute on chronic respiratory failure. 3. History of a tracheostomy placement. PLAN: We will try to lighten her sedation and hopefully transition her to a situation where she can ventilate more on her own. My goal will be to try to extubate her tomorrow if she has a good day t sarah. I spoke to her yesterday at length over the phone.
--- NOTE | 2017-09-17 09:09 | RAD ---
CHEST 1 VIEW: Date: 09/17/17 HISTORY: Ventilated patient. COMPARISON: Chest 1 view prior day. FINDINGS: Endotracheal tube tip is craniad to the darwin 1.8 cm. Enteric tube tip below diaphragm and out of f ield of view. Cardiac silhouette and mediastinal contours within normal limits. No pneumothorax. IMPRESSION: No significant change in radiographic appearance of the chest. POS: [facility]
[2017-09-17] MEDS: Enoxaparin Sodium 40 MG/0.4 ML SYRINGE SC SCH (09:52)
[2017-09-17] MEDS: Famotidine 20 MG TAB PO SCH ×2 (09:53→21:20)
--- NOTE | 2017-09-17 11:17 | PDOC.PN ---
- Subjective Encounter Start Date: 09/17/17 Encounter Start Time: 11:15 Ms. Gonzalez is intubated her sedation has been reduced , and she is more alert. - Objective Resuscitation Status: Resuscitation Status FULL:Full Resuscitation MAR Reviewed: Yes Vital Signs & Weight: Vital Signs (12 hours) Temp Pulse Resp BP Pulse Ox 09/17/17 08:00 98.8 F 90 12 100 09/17/17 06:41 62 105/46 L 09/17/17 06:39 62 10 L 100 09/17/17 05:00 98.7 F 09/17/17 01:00 98.8 F 09/17/17 00:13 50 L 10 L 100 Weight Admit Weight 179 lb 10.816 oz Weight 191 lb 2.252 oz Most Recent Monitor Data Heart Rate from ECG 89 NIBP 125/62 NIBP BP-Mean 77 Respiration from ECG 16 SpO2 100 I&O: 09/16/17 09/17/17 09/18/17 06:59 06:59 06:59 Intake Total 2439.4 2382.5 Output Total 3420 1675 70 Balance -980.6 707.5 -70 Result Diagrams: 09/17/17 03:51 09/17/17 03:51 Additional Labs: Accuchecks 09/17/17 09/17/17 09/16/17 05:46 00:41 20:10 POC Glucose 201 H 187 H 176 H 09/16/17 11:51 POC Glucose 224 H Phys Exam - Physical Examination HEENT: PERRLA Respiratory: no wheezing, no rales Cardiovascular: RRR, no significant murmur Gastrointestinal: soft, non-tender, positive bowel sounds Musculoskeletal: no edema Dx/Plan (1) COPD exacerbation Code(s): J44.1 - CHRONIC OBSTRUCTIVE PULMONARY DISEASE W (ACUTE) EXACERBATION Status: Acute Comment: See #1, continue Zithromax 500mg IV daily, Duonebs q4h (2) Acute respiratory failure with hypoxia and hypercapnia Code(s): J96.01 - ACUTE RESPIRATORY FAILURE WITH HYPOXIA; J96.02 - ACUTE RESPIRATORY FAILURE WITH HYPERCAPNIA Status: Acute Comment: Continue mech ventilation with SIMV 40% FIO2, wean as clinically indicated, continue Solumedrol 20mg IV q6h (3) Obesity Code(s): E66.9 - OBESITY, UNSPECIFIED Status: Acute (4) Hypertension Code(s): I10 - ESSENTIAL (PRIMARY) HYPERTENSION Status: Chronic Qualifiers: Hypertension type: essential hypertension Qualified Code(s): I10 - Essential (primary) hypertension - Plan * Acute on chronic respiratory failure- improving * Continue Neb treatment, Steroids, Azithromycin, and Rocephin * She is slowly being weaned from Ventilator * HTN- blood pressure is stable DM- blood glucose is stable.
[2017-09-17] MEDS ORDERED: Bisacodyl 10 MG SUPP PR PRN (14:09)
[2017-09-17] MEDS: cefTRIAXone\\ROCEPHIN 2 GM, Admixture Fee 1 EACH in Sodium Chloride 0.9% 100 ML IVPB SCH (17:27)
[2017-09-17] MEDS: Fentanyl 20 MCG/ML 250 ML IVPB SCH (21:15)
[2017-09-18] MEDS: Insulin Regular 300 UNITS/3 ML VIAL SC PRN ×2 (00:11→06:29)
[2017-09-18 04:17] LABS: Hematocrit 38.5 % (36.0-47.0); Mean Platelet Volume 8.4 fL (7.4-10.4); Red Blood Cell (RBC) Count 4.66 mill/uL (4.20-5.40); White Blood Cell (WBC) Count 19.2 thou/uL (4.8-10.8)
[2017-09-18 04:18] LABS: Band 2 % (5-11); Neutrophil 76 % (42-75)
[2017-09-18 04:33] LABS: Anion Gap 19 mmol/L (10-20); Carbon Dioxide 32 mmol/L (22-29); Chloride 93 mmol/L (98-107)
[2017-09-18 04:56] LABS: BUN (Urea Nitrogen) 19 mg/dL (9.8-20.1); Calc. Creatinine Clearance 155 mL/min (70-130); Calcium 9.2 mg/dL (7.8-10.44); Estimated GFR-MDRD Greater than 90
[2017-09-18] MEDS: Propofol 1,000 MG/100 ML VIAL IV PRN (06:35)
[2017-09-18 07:47] LABS: Oxyhemoglobin 95.4 % (94.0-97.0); Sodium 138 mmol/L (135-148)
[2017-09-18 07:50] LABS: Mechanical Tidal Volume 450 ml; Mode PSIMV; Modified Allen's Test POSITIVE; Pressure Support 10 cmH2O; Vent YES
--- NOTE | 2017-09-18 07:53 | PRG ---
DATE OF SERVICE: 09/18/2017 This is 35 minutes critical care time. Ms. Gonzalez is awake and alert and follows commands. Her sedation has been minimized. PHYSICAL EXAMINATION: VITAL SIGNS: Temperature is 98.4, pulse 72, blood pressure 111/50, 24-hour intake 852, output 2995. HEENT: Unremarkable. NECK: Without adenopathy or JVD. LUNGS: No wheezing. CARDIOVASCULAR: S1, S2 regular. ABDOMEN: Soft. EXTREMITIES: Without clubbing, cyanosis, or edema. LABORATORY DATA: ABG is pending. White blood cell count 19.2, hemoglobin 11, hematocrit 38, platel et count 313. Sodium 138, potassium 5.9, chloride 93, CO2 32, BUN 19, creatinine 0.5, glucose 174. ASSESSMENT: 1. Acute respiratory failure requiring mechanical ventilation. 2. Hyperkalemia - etiology of which is unclear. 3. Chronic obstructive pulmonary disease with exacerbation. PLAN: 1. Review blood gas and probably extubate if she tolerates spontaneous breathing trial this morning . 2. One dose of Kayexalate.
--- NOTE | 2017-09-18 09:09 | RAD ---
PORTABLE AP CHEST X-RAY: 09/18/2017 HISTORY: On ventilator. Follow-up evaluation. COMPARISON: 09/17/2017 FINDINGS: Endotracheal tube and nasogastric tube remain in place and unchanged in position, although the endot naye tube may have been slightly withdrawn. The patient is rotated on this exam, which accentuat es the interstitial densities in the right perihilar location of the right upper lung, and there is also overlying artifact, which limits evaluation. No obvious consolidation or pleural fluid is appr eciated on this exam. The cardiac silhouette is within normal limits. No other interval change. G iven differences in technique and patient rotation, the chest overall appears to be stable from the prior study. IMPRESSION: Stable chest. POS: [facility]
[2017-09-18] MEDS: Enoxaparin Sodium 40 MG/0.4 ML SYRINGE SC SCH (09:29)
[2017-09-18] MEDS: Famotidine 20 MG TAB PO SCH ×2 (09:29→20:34)
--- NOTE | 2017-09-18 11:37 | PDOC.PN ---
- Subjective Encounter Start Date: 09/18/17 Encounter Start Time: 11:36 Ms. Gonzalez has been extubated. She appears comfortable, and her vitals signs are stable. She does not have any complaints. - Objective Resuscitation Status: Resuscitation Status FULL:Full Resuscitation MAR Reviewed: Yes Vital Signs & Weight: Vital Signs (12 hours) Temp Pulse Resp BP Pulse Ox 09/18/17 08:00 98.1 F 115 H 26 H 94 L 09/18/17 07:06 80 158/57 H 09/18/17 07:05 82 13 100 09/18/17 06:00 0 L 09/18/17 04:00 98.4 F 18 09/18/17 02:57 80 116/55 L 09/18/17 02:00 13 09/18/17 00:39 81 19 100 09/18/17 00:00 98.4 F 13 Weight Admit Weight 179 lb 10.816 oz Weight 183 lb 13.848 oz Most Recent Monitor Data Heart Rate from ECG 91 NIBP 149/63 NIBP BP-Mean 78 Respiration from ECG 23 SpO2 96 I&O: 09/17/17 09/18/17 09/19/17 06:59 06:59 06:59 Intake Total 2382.5 852.4 30 Output Total 1675 2995 665 Balance 707.5 -2142.6 -635 Result Diagrams: 09/18/17 03:45 09/18/17 03:45 Additional Labs: Accuchecks 09/18/17 09/18/17 09/18/17 11:10 06:23 00:11 POC Glucose 144 H 156 H 199 H 09/17/17 09/17/17 17:49 11:43 POC Glucose 170 H 171 H Phys Exam - Physical Examination HEENT: PERRLA Respiratory: wheezing present + occasional wheeze Cardiovascular: RRR, no significant murmur Gastrointestinal: soft, non-tender, positive bowel sounds Musculoskeletal: no edema Dx/Plan (1) COPD exacerbation Code(s): J44.1 - CHRONIC OBSTRUCTIVE PULMONARY DISEASE W (ACUTE) EXACERBATION Status: Acute Comment: See #1, continue Zithromax 500mg IV daily, Duonebs q4h (2) Acute respiratory failure with hypoxia and hypercapnia Code(s): J96.01 - ACUTE RESPIRATORY FAILURE WITH HYPOXIA; J96.02 - ACUTE RESPIRATORY FAILURE WITH HYPERCAPNIA Status: Acute Comment: Continue mech ventilation with SIMV 40% FIO2, wean as clinically indicated, continue Solumedrol 20mg IV q6h (3) Obesity Code(s): E66.9 - OBESITY, UNSPECIFIED Status: Acute (4) Hypertension Code(s): I10 - ESSENTIAL (PRIMARY) HYPERTENSION Status: Chronic Qualifiers: Hypertension type: essential hypertension Qualified Code(s): I10 - Essential (primary) hypertension - Plan * Acute on chronic respiratory failure- she is stable post extubation so far * Continue Rocephin and Solumedrol * HTN- blood pressure was elevated earlier but is trending down * Blood glucose is stable .
[2017-09-18 13:47] VITALS: BMI 33.8
[2017-09-18] MEDS: cefTRIAXone\\ROCEPHIN 2 GM, Admixture Fee 1 EACH in Sodium Chloride 0.9% 100 ML IVPB SCH (17:31)
[2017-09-19 04:52] LABS: Band 1 % (5-11); Hematocrit 44.2 % (36.0-47.0); Mean Platelet Volume 8.5 fL (7.4-10.4); Neutrophil 89 % (42-75); Red Blood Cell (RBC) Count 5.32 mill/uL (4.20-5.40); White Blood Cell (WBC) Count 17.9 thou/uL (4.8-10.8)
[2017-09-19 04:56] LABS: BUN (Urea Nitrogen) 17 mg/dL (9.8-20.1); Calc. Creatinine Clearance 158 mL/min (70-130); Calcium 9.2 mg/dL (7.8-10.44); Estimated GFR-MDRD Greater than 90
[2017-09-19 05:06] LABS: Anion Gap 16 mmol/L (10-20); Carbon Dioxide 34 mmol/L (22-29); Chloride 94 mmol/L (98-107)
[2017-09-19] MEDS: Insulin Regular 300 UNITS/3 ML VIAL SC PRN (05:30)
--- NOTE | 2017-09-19 09:24 | PDOC.PN ---
- Subjective Encounter Start Date: 09/19/17 Encounter Start Time: 09:22 Ms. Gonzalez is breathing better. She does not have any complaints. she is sitting up in a chair, and her is at her side. - Objective Resuscitation Status: Resuscitation Status FULL:Full Resuscitation MAR Reviewed: Yes Vital Signs & Weight: Vital Signs (12 hours) Temp Pulse Resp Pulse Ox 09/19/17 07:35 96 09/19/17 06:36 79 22 H 96 09/19/17 06:34 96 09/19/17 04:00 98.0 F 09/19/17 00:20 77 21 H 97 09/19/17 00:00 98.1 F Weight Admit Weight 179 lb 10.816 oz Weight 178 lb 5.663 oz Most Recent Monitor Data Heart Rate from ECG 85 NIBP 126/75 NIBP BP-Mean 81 Respiration from ECG 18 SpO2 98 I&O: 09/18/17 09/19/17 09/20/17 06:59 06:59 05:59 Intake Total 852.4 70 Output Total 2995 3240 Balance -2142.6 -3170 Result Diagrams: 09/19/17 03:35 09/19/17 03:35 Additional Labs: Accuchecks 09/19/17 09/18/17 09/18/17 05:30 23:32 17:31 POC Glucose 160 H 141 H 149 H 09/18/17 11:10 POC Glucose 144 H Phys Exam - Physical Examination HEENT: PERRLA Respiratory: no wheezing, no rales Decreased air movement Cardiovascular: RRR, no significant murmur Gastrointestinal: soft, non-tender, positive bowel sounds Musculoskeletal: no edema Dx/Plan (1) COPD exacerbation Code(s): J44.1 - CHRONIC OBSTRUCTIVE PULMONARY DISEASE W (ACUTE) EXACERBATION Status: Acute Comment: See #1, continue Zithromax 500mg IV daily, Duonebs q4h (2) Acute respiratory failure with hypoxia and hypercapnia Code(s): J96.01 - ACUTE RESPIRATORY FAILURE WITH HYPOXIA; J96.02 - ACUTE RESPIRATORY FAILURE WITH HYPERCAPNIA Status: Acute Comment: Continue mech ventilation with SIMV 40% FIO2, wean as clinically indicated, continue Solumedrol 20mg IV q6h (3) Obesity Code(s): E66.9 - OBESITY, UNSPECIFIED Status: Acute (4) Hypertension Code(s): I10 - ESSENTIAL (PRIMARY) HYPERTENSION Status: Chronic Qualifiers: Hypertension type: essential hypertension Qualified Code(s): I10 - Essential (primary) hypertension - Plan * Acute on chronic Respiratory failure- improving * Continue supplemental oxygen * Continue duonebs, and Steroids * Blood glucose is stable * HTN- blood pressure is stable
[2017-09-19] MEDS: Famotidine 20 MG TAB PO SCH ×2 (09:32→20:56)
[2017-09-19] MEDS: Enoxaparin Sodium 40 MG/0.4 ML SYRINGE SC SCH (09:33)
--- NOTE | 2017-09-19 10:27 | PRG ---
DATE OF SERVICE: 09/19/2017 SUBJECTIVE: She was successfully extubated yesterday. She is awake. She still seems somewhat conf used, but she is calm. PHYSICAL EXAMINATION: VITAL SIGNS: Temperature is 98.0, pulse 85, blood pressure 126/75. A 24 hour intake 852, output 29 95, weight currently 178 pounds. HEENT: Unremarkable. NECK: No JVD. LUNGS: Clear without wheezing or rhonchi. CARDIAC: S1 and S2 regular. ABDOMEN: Soft, obese, nontender. EXTREMITIES: No clubbing, cyanosis, or edema. LABORATORY DATA: White blood cell count 17.9, hemoglobin 12.7, hematocrit 44.2, platelet count 327. Sodium 139, potassium 4.7, chloride 94, CO2 34, BUN 17, creatinine 0.5, glucose 158. ASSESSMENT: 1. Status post prolonged intubation for respiratory failure related to chronic obstructive pulmonar y disease exacerbation. 2. Hyperkalemia, which has improved after the administration of Kayexalate yesterday. 3. Deconditioning. PLAN: 1. The patient will get up in a chair today. 2. We will attempt to wean her Ventimask down to a nasal cannula. 3. Initiate physical therapy.
[2017-09-19] MEDS ORDERED: ALPRAZolam 0.25 MG TAB PO SCH (14:45)
[2017-09-19] MEDS: cefTRIAXone\\ROCEPHIN 2 GM, Admixture Fee 1 EACH in Sodium Chloride 0.9% 100 ML IVPB SCH (18:11)
[2017-09-19] MEDS ORDERED: diphenhydrAMINE 25 MG CAP PO PRN (18:38)
--- NOTE | 2017-09-19 20:10 | EKG ---
Test Reason : SOB Blood Pressure : / mmHG Vent. Rate : 124 BPM Atrial Rate : 124 BPM P-R Int : 134 ms QRS Dur : 118 ms QT Int : 334 ms P-R-T Axes : 076 -23 087 degrees QTc Int : 479 ms Sinus tachycardia Anterior infarct , age undetermined , old No STEMI Abnormal ECG Confirmed by GEETA BERMUEN D.O. ([id number]), commissioning editor OTILIA MONAHAN ([id number]) on 09/19/2017 8:09:40 PM Referred By: Confirmed By:GEETA BERUMEN D.O.
[2017-09-20 04:04] LABS: Band 1 % (5-11); Hematocrit 41.7 % (36.0-47.0); Mean Platelet Volume 7.9 fL (7.4-10.4); Neutrophil 81 % (42-75); Red Blood Cell (RBC) Count 5.05 mill/uL (4.20-5.40); White Blood Cell (WBC) Count 16.7 thou/uL (4.8-10.8)
[2017-09-20 04:07] LABS: Anion Gap 12 mmol/L (10-20); BUN (Urea Nitrogen) 19 mg/dL (9.8-20.1); Calc. Creatinine Clearance 142 mL/min (70-130); Calcium 9.1 mg/dL (7.8-10.44); Carbon Dioxide 36 mmol/L (22-29); Chloride 96 mmol/L (98-107); Estimated GFR-MDRD Greater than 90
--- NOTE | 2017-09-20 07:37 | PRG ---
DATE OF SERVICE: 09/20/2017 SUBJECTIVE: Aside from some anxiety issues, she is doing well. OBJECTIVE: VITAL SIGNS: On exam, her temperature is 98.5, pulse 74, blood pressure 120/67. HEENT: Unremarkable. NECK: No adenopathy or JVD. LUNGS: Clear to auscultation, no wheezing. CARDIOVASCULAR: S1, S2 regular. ABDOMEN: Soft. EXTREMITIES: Trace edema. LABORATORY DATA: White blood cell count 16.7, hematocrit 41.7, platelet count 326,000. Sodium 139, potassium 4.5, chloride 96, CO2 36, BUN 19, creatinine 0.5, glucose 162. ASSESSMENT: 1. Chronic obstructive pulmonary disease with exacerbation. 2. Status post acute respiratory failure requiring mechanical ventilation. 3. Anxiety. 4. Deconditioning. PLAN: 1. Transfer to the medical floor. 2. Consider rehabilitation for placement. 3. Change antibiotics and steroids to oral medication. 4. Restart her Xanax that she takes at home. 5. Discontinue daily labs.
[2017-09-20] MEDS: ALPRAZolam 0.25 MG TAB PO PRN ×2 (08:19→21:03)
--- NOTE | 2017-09-20 08:21 | PDOC.PN ---
- Subjective Encounter Start Date: 09/20/17 Encounter Start Time: 08:19 Ms. Gonzalez is feeling much better, but she is very anxious. She says she feels like she is going to have a panic attack at any minute - Objective Resuscitation Status: Resuscitation Status FULL:Full Resuscitation MAR Reviewed: Yes Vital Signs & Weight: Vital Signs (12 hours) Pulse Resp Pulse Ox 09/20/17 06:12 77 20 98 09/20/17 01:31 CDT 75 21 H 96 Weight Admit Weight 179 lb 10.816 oz Weight 180 lb 5.41 oz Most Recent Monitor Data Heart Rate from ECG 74 NIBP 120/67 NIBP BP-Mean 85 Respiration from ECG 21 SpO2 99 I&O: 09/19/17 09/20/17 09/21/17 07:59 06:59 06:59 Intake Total Output Total Balance Result Diagrams: 09/20/17 03:27 09/20/17 03:27 Additional Labs: Accuchecks 09/20/17 09/19/17 09/19/17 05:38 23:41 18:21 POC Glucose 132 H 157 H 120 H 09/19/17 12:33 POC Glucose 113 H Phys Exam - Physical Examination HEENT: PERRLA Respiratory: no wheezing, no rales, no rhonchi, clear to auscultation bilateral Cardiovascular: RRR, no significant murmur Gastrointestinal: soft, non-tender, positive bowel sounds Musculoskeletal: no edema Dx/Plan (1) COPD exacerbation Code(s): J44.1 - CHRONIC OBSTRUCTIVE PULMONARY DISEASE W (ACUTE) EXACERBATION Status: Acute Comment: See #1, continue Zithromax 500mg IV daily, Duonebs q4h (2) Acute respiratory failure with hypoxia and hypercapnia Code(s): J96.01 - ACUTE RESPIRATORY FAILURE WITH HYPOXIA; J96.02 - ACUTE RESPIRATORY FAILURE WITH HYPERCAPNIA Status: Acute Comment: Continue mech ventilation with SIMV 40% FIO2, wean as clinically indicated, continue Solumedrol 20mg IV q6h (3) Obesity Code(s): E66.9 - OBESITY, UNSPECIFIED Status: Acute (4) Hypertension Code(s): I10 - ESSENTIAL (PRIMARY) HYPERTENSION Status: Chronic Qualifiers: Hypertension type: essential hypertension Qualified Code(s): I10 - Essential (primary) hypertension - Plan * COPD exacerbation- much improved * She will be moved to the floor today * She has been changed to Omnicef, and oral Prednisone * Generalized Anxiety- her home medication, Klonopin will be re-started with Xanax PRN * DM- diet controlled- continue SSI * HTN- will re-start Amlodipine * PT for re-conditioning.
[2017-09-20] MEDS: Cefdinir 300 MG CAP PO SCH (08:37)
[2017-09-20] MEDS: predniSONE 20 MG TAB PO SCH (08:38)
[2017-09-20] MEDS: Famotidine 20 MG TAB PO SCH ×2 (08:39→20:59)
[2017-09-20] MEDS: Enoxaparin Sodium 40 MG/0.4 ML SYRINGE SC SCH (08:39)
[2017-09-20] MEDS: Amlodipine 10 MG TAB PO SCH (11:17)
[2017-09-20] MEDS: Insulin Regular 300 UNITS/3 ML VIAL SC PRN ×2 (11:34→17:00)
[2017-09-20] MEDS: clonazePAM 1 MG TAB PO PRN (12:44)
[2017-09-20] MEDS ORDERED: traZODone HCl 50 MG TAB PO SCH (21:00)
[2017-09-21] MEDS: clonazePAM 1 MG TAB PO PRN (03:36)
[2017-09-21 05:06] VITALS: BP 111/74
[2017-09-21] MEDS: Famotidine 20 MG TAB PO SCH (08:22)
[2017-09-21] MEDS: predniSONE 20 MG TAB PO SCH (08:22)
[2017-09-21] MEDS: Cefdinir 300 MG CAP PO SCH (08:22)
[2017-09-21] MEDS: Amlodipine 10 MG TAB PO SCH (08:22)
[2017-09-21] MEDS: Enoxaparin Sodium 40 MG/0.4 ML SYRINGE SC SCH (08:25)
--- NOTE | 2017-09-21 08:44 | PRG ---
DATE OF SERVICE: 09/21/2017 SUBJECTIVE: She is feeling better. She is in much better spirits. OBJECTIVE: VITAL SIGNS: Temperature 98.1, pulse 95, respirations 20, O2 saturation 97% on 3 liters, blood pres sure 111/74. HEENT: Unremarkable. NECK: No JVD. LUNGS: Clear but distant breath sounds. CARDIAC: S1 and S2 regular. ABDOMEN: Soft. EXTREMITIES: Trace edema. ASSESSMENT: 1. Chronic obstructive pulmonary disease with exacerbation. 2. Status post acute respiratory failure. PLAN: I believe that she can probably be sent for rehabilitation or somewhere to improve her condit ioning before she goes home. I think she is ready to go as soon as today.
[2017-09-21 09:08] VITALS: TEMP 98
[2017-09-21] MEDS: ALPRAZolam 0.25 MG TAB PO PRN (10:52)
--- NOTE | 2017-09-21 11:48 | PDOC.PN ---
- Subjective Encounter Start Date: 09/21/17 Encounter Start Time: 08:00 Subjective: breathing better, no chest pain -: is amb to bedside commode - Objective Resuscitation Status: Resuscitation Status FULL:Full Resuscitation MAR Reviewed: Yes Vital Signs & Weight: Vital Signs (12 hours) Temp Pulse Resp BP Pulse Ox 09/21/17 09:07 98.0 F 118 H 26 H 111/74 94 L 09/21/17 08:22 95 09/21/17 08:09 94 L 09/21/17 08:07 95 20 94 L 09/21/17 08:00 98.0 F 98 26 H 98 09/21/17 04:00 98.1 F 83 20 111/74 91 L 09/21/17 03:38 75 20 97 09/21/17 00:00 97.6 F 76 20 97/59 L 96 Weight Admit Weight 179 lb 10.816 oz Weight 184 lb Most Recent Monitor Data Heart Rate from ECG 100 NIBP 118/76 NIBP BP-Mean 82 Respiration from ECG 21 SpO2 93 I&O: 09/20/17 09/21/17 09/22/17 06:59 06:59 06:59 Intake Total 360 Output Total 325 Balance 35 Result Diagrams: 09/20/17 03:27 09/20/17 03:27 Additional Labs: Accuchecks 09/21/17 09/20/17 09/20/17 04:30 20:06 15:56 POC Glucose 101 145 H 205 H Phys Exam - Physical Examination HEENT: PERRLA, moist MMs Neck: no JVD, supple Respiratory: no wheezing, no rales rhonchi+ Cardiovascular: RRR, no significant murmur Gastrointestinal: soft, non-tender, positive bowel sounds Musculoskeletal: no edema, pulses present Neurological: non-focal, moves all 4 limbs Psychiatric: A&O x 3 Dx/Plan (1) COPD exacerbation Code(s): J44.1 - CHRONIC OBSTRUCTIVE PULMONARY DISEASE W (ACUTE) EXACERBATION Status: Acute (2) Acute respiratory failure with hypoxia and hypercapnia Code(s): J96.01 - ACUTE RESPIRATORY FAILURE WITH HYPOXIA; J96.02 - ACUTE RESPIRATORY FAILURE WITH HYPERCAPNIA Status: Resolved (3) HLD (hyperlipidemia) Code(s): E78.5 - HYPERLIPIDEMIA, UNSPECIFIED Status: Chronic Qualifiers: Hyperlipidemia type: unspecified Qualified Code(s): E78.5 - Hyperlipidemia , unspecified (4) Obesity Code(s): E66.9 - OBESITY, UNSPECIFIED Status: Chronic Qualifiers: Obesity classification: adult class 1 (BMI 30 - 34.9) Body mass index: BMI 33.0-33.9 (5) Physical deconditioning Code(s): R53.81 - OTHER MALAISE Status: Acute (6) Hypertension Code(s): I10 - ESSENTIAL (PRIMARY) HYPERTENSION Status: Chronic Qualifiers: Hypertension type: essential hypertension Qualified Code(s): I10 - Essential (primary) hypertension - Plan pt was awaiting rehab eval/swing placement for deconditioning -: I am told by RN that she wants to sign out against advice and go home -: is high risk for readmission if she smokes again -: she did agree to go to rehab when I spoke to her this morning but apparentl -: -y changed her mind * . Review of Systems - Medications/Allergies Allergies/Adverse Reactions: Allergies Allergy/AdvReac Type Severity Reaction Status Date / Time No Known Drug Allergies Allergy Verified 03/02/17 01:00 Medications: Current Medications Acetaminophen (Tylenol) 650 mg PO Q4H PRN PRN Reason: Headache/Fever or Pain Last Admin: 09/19/17 06:27 Dose: 650 mg Acetaminophen (Tylenol) 650 mg NH Q4H PRN PRN Reason: Headache/Fever or Pain Al Hydroxide/Mg Hydroxide (Maalox) 30 ml PO Q6H PRN PRN Reason: Heartburn or Indigestion Albuterol/Ipratropium (Duoneb) 3 ml NEB [id number] PRN PRN Reason: SOB &/or Wheezing Last Admin: 09/21/17 03:38 Dose: 3 ml Albuterol/Ipratropium (Duoneb) 3 ml NEB [id number] HUGH Last Admin: 09/21/17 08:07 Dose: 3 ml Alprazolam (Xanax) 0.25 mg PO BID PRN PRN Reason: Anxiety Last Admin: 09/21/17 10:52 Dose: 0.25 mg Amlodipine Besylate (Norvasc) 10 mg PO DAILY [facility] Last Admin: 09/21/17 08:22 Dose: 10 mg Bisacodyl (Dulcolax) 10 mg NH Q8H PRN PRN Reason: Constipation Cefdinir (Omnicef) 600 mg PO DAILY [facility] Last Admin: 09/21/17 08:22 Dose: 600 mg Clonazepam (Klonopin) 1 mg PO BID PRN PRN Reason: Anxiety/Agitation Last Admin: 09/21/17 03:36 Dose: 1 mg Dextrose/Water (Dextrose 50%) 25 gm SLOW IVP PRN PRN PRN Reason: Hypoglycemia Diphenhydramine HCl (Benadryl) 25 mg PO HSPRN PRN PRN Reason: Insomnia Last Admin: 09/19/17 20:56 Dose: 25 mg Enoxaparin Sodium (Lovenox) 40 mg SC 0900 [facility] Last Admin: 09/21/17 08:25 Dose: 40 mg Famotidine (Pepcid) 20 mg PO Q12HR [facility] Last Admin: 09/21/17 08:22 Dose: 20 mg Glucagon (Glucagon) 1 mg IM PRN PRN PRN Reason: Hypoglycemia Hydralazine HCl (Apresoline) 10 mg SLOW IVP Q4H PRN PRN Reason: Systolic BP > 180 Dextrose/Water (D5w) 1,000 mls @ 0 mls/hr IV .Q0M PRN; As Directed PRN Reason: Hypoglycemia Insulin Human Regular (Humulin R) 0 units SC .MODERATE SLIDING SC PRN PRN Reason: Moderate Correctional Scale Last Admin: 09/20/17 17:00 Dose: 4 units Ondansetron HCl (Zofran) 4 mg IVP Q6H PRN PRN Reason: Nausea/Vomiting Last Admin: 09/18/17 13:41 Dose: 4 mg Prednisone (Prednisone) 40 mg PO DAILY [facility] Last Admin: 09/21/17 08:22 Dose: 40 mg Sodium Chloride (Flush - Normal Saline) 10 ml IVF Q12HR [facility] Last Admin: 09/21/17 08:22 Dose: 10 ml Sodium Chloride (Flush - Normal Saline) 10 ml IVF PRN PRN PRN Reason: Saline Flush Trazodone HCl (Desyrel) 50 mg PO HS [facility] Last Admin: 09/20/17 21:01 Dose: 50 mg
--- NOTE | 2017-09-22 03:26 | DIS ---
DATE OF ADMISSION: 09/11/2017 DATE OF DISCHARGE: 09/21/2017 DISCHARGE DISPOSITION: The patient signed out against advice to home. PRIMARY DISCHARGE DIAGNOSIS: Chronic obstructive pulmonary disease exacerbation , acute respiratory failure with hypoxia and hypercapnia, deconditioning. SECONDARY DISCHARGE DIAGNOSES: Obesity, dyslipidemia, hypertension. PROCEDURES DONE DURING HOSPITALIZATION: Chest x-ray done on the day of admission showed no acute process. The patient was intubated on 09/11/[address] Howard. Blood cultures x2 no growth. Discharge H\T\H 12 and 41 with platelet count of 326. Admitting white count of 20 with 79% neutrophils and 10 % bands. Blood gas done on the day of admission showed a pH of 7.25, PCO2 of 74. Discharge BUN and creatinine is 19 and 0.5. Troponin x3 negative. BNP 104. DISCHARGE MEDICATIONS: Norvasc 10 mg p.o. daily, Omnicef 600 mg p.o. daily for another 4 days, prednisone 10 mg twice daily for 3 days and 10 mg daily for 3 days, 5 mg daily for 4 days and to discontinue trazodone 50 mg p.o. at bedtime, Klonopin 1 mg twice daily p.r.n. for anxiety, DuoNebs q.6 hourly ALLERGIES: No known drug allergies. INPATIENT CONSULTS: Dr. Howard/Dr. Prasad for Pulmonology. DISCHARGE PLAN: Patient to follow up with her primary care physician in 1 week. BRIEF COURSE DURING HOSPITALIZATION: The patient initially came in with complaints of shortness of breath. She had a pH of 7.25 with elevated pCO2. She had acute respiratory failure with hypercarbia and hypoxemia. The patient was intubated. She was initially on BiPAP, but had to be intubated later as her pH continued to be at 7.26 four and half hours after being on BiPAP. She was slowly weaned and extubated after prolonged stay in ICU. Patient has severe deconditioning, likely due to ICU myopathy. At the time of discharge, the patient is able to use the bedside commode. She was advised to go to inpatient rehabilitation and inpatient rehabilitation evaluation was pending. The patient decided that she did not want to go to rehab and would go home come what march. She is fully oriented and signed out against advice. In view of initial presentation and prior respiratory failure requiring tracheostomy and the LTAC placement in March, she was given prescriptions for the steroid taper along with Omnicef for another 4 days. She has been counseled with regards to smoking cessation. Please see a [id number] documentation on [facility] for the day of discharge. FEMI
== END 2017-09-21 12:57 | disposition left against medical advice (07) | DRG 207 ==
LOC: ERS 14:38 → CCU 17:59 → T4-B 09-20 09:47
PROVIDERS: ADMIT Internal Medicine; ATTEND Internal Medicine
PROC: 5A1955Z Respiratory Ventilation, Greater than 96 Consecutive Hours (ICD-10-PCS; principal; 2017-09-11)
PROC: 0BH18EZ Insertion of Endotracheal Airway into Trachea, Via Natural or Artificial Opening Endoscopic (ICD-10-PCS; 2017-09-11)
PROC: 5A09357 Assistance with Respiratory Ventilation, Less than 24 Consecutive Hours, Continuous Positive Airway Pressure (ICD-10-PCS; 2017-09-11)
DX: J96.21 Acute and chronic respiratory failure with hypoxia (principal); G72.81 Critical illness myopathy; J44.1 Chronic obstructive pulmonary disease with (acute) exacerbation; J98.11 Atelectasis; J96.02 Acute respiratory failure with hypercapnia; T17.990A Other foreign object in respiratory tract, part unspecified in causing asphyxiation, initial encounter; I10 Essential (primary) hypertension; E87.5 Hyperkalemia; E66.9 Obesity, unspecified; Z68.35 Body mass index [BMI] 35.0-35.9, adult; E11.9 Type 2 diabetes mellitus without complications; E78.5 Hyperlipidemia, unspecified; F17.210 Nicotine dependence, cigarettes, uncomplicated; F41.1 Generalized anxiety disorder
CPT/HCPCS: 36415; 36416; 71010; 80048; 80053; 82553; 82805; 83880; 84484; 85007; 85025; 85027; 87040; 93005; 94002; 94003; 94644; 94660; 96365; 96367; 96375; A4216; G8978-GP-CL; G8979-GP-CJ; G8996-GN-CI; G8997-GN-CI; J0456; J0696; J1650; J1815; J1885; J1940; J2060; J2250; J2270; J2405; J2704; J2920; J3010; J3475; J7050; J7506; J7611; J7620; S0028

== ENCOUNTER 2019-03-26 13:16 | Inpatient (IN) | payer MEDICARE ==
[2019-03-26 13:31] LABS: Actual Bicarbonate (HCO3a) 49.4 mEq/L (22-28); Analyzer IN Cardio ER; Base Excess (BEa) 13.1 mEq/L (-2.0 to +3.0); Calcium, Ionized 1.23 mmol/L (1.12-1.30); Carboxyhemoglobin (COHb) 1.2 gm% (0.0-3.0); Hemoglobin (Hb) 15.1 g/dL (12.0-16.0); Potassium - ABG Lab 4.17 mmol/L (3.70-5.30); pH, Arterial 7.13 (7.35-7.45)
[2019-03-26] MEDS ORDERED: Dexamethasone 10 MG/ML VIAL ONE (13:31)
[2019-03-26] MEDS ORDERED: Ketamine 50 MG/ML (10ML VIAL) ONE (13:31)
[2019-03-26 13:32] LABS: CO2 Tension 151.8 mmHg (35.0-45.0); O2 Tension (PaO2) 58.6 mmHg (80.0-100.0); Puncture Site LRA
[2019-03-26] MEDS ORDERED: Rocuronium Bromide 10 MG/ML (10ML VIAL) ONE (13:50)
[2019-03-26] MEDS ORDERED: DISCONTINUE PREVIOUS NARCOTIC PAIN MEDICATIONS AND BENZODIAZEPINES FS SCH (14:04)
[2019-03-26] MEDS ORDERED: fentaNYL Citrate/PF 2,000 MCG in Sodium Chloride 0.9% 60 ML IV SCH (14:04)
[2019-03-26 14:09] LABS: Bilirubin Negative (Negative); Blood, Urine Small (Negative); Clarity CLEAR (Clear); Glucose, Urine (Dipstick) 250 mg/dL (Negative); Leukocyte Negative (Negative); Nitrite Negative (Negative); Protein, Urine (Dipstick) Trace mg/dL (Neg-Trace); Specific Gravity, Urine 1.021 (1.002-1.036); Urobilinogen 0.2 mg/dL (0.2-1.0); pH, Urine 5.5 (5.0-9.0)
[2019-03-26 14:11] LABS: Bacteria/HPF None Seen HPF (None Seen); Pathc Cast-AUWi Flag 1.36 (0-2.49); Squamous Epithelial 0-3 HPF (0-3); WBC/HPF 0-3 HPF (0-3)
[2019-03-26 14:12] LABS: Hyaline Casts/LPF 0-3 HYALINE CAST LPF (0-3 Hyaline)
[2019-03-26 14:14] LABS: Acetaminophen Less than 6.0 mcg/mL (10.0-30.0); Alcohol Less than 10 mg/dL (Less than 10); CK (CPK) 71 U/L (29-168); Lipase 41 U/L (8-78); Salicylate Less than 8.0 mg/dL (15.0-30.0)
[2019-03-26 14:22] LABS: Amphetamine Detected (NotDetected); Barbiturates Screen Not Detected (NotDetected); Benzodiazepine Screen Detected (NotDetected); Cocaine Metabolite Screen Not Detected (NotDetected); Medtox Control Line Valid? VALID (VALID); Medtox Reader # READER 4; Methadone Not Detected (NotDetected); Methamphetamine Detected (NotDetected); Opiate Screen Not Detected (NotDetected); Oxycodone Screen Not Detected (NotDetected); Phencyclidine (PCP) Not Detected (NotDetected); THC/Cannabinoid Screen Not Detected (NotDetected); Tricyclic Screen Not Detected (NotDetected)
--- NOTE | 2019-03-26 14:23 | RAD ---
Chest AP view INDICATION: Intubation COMPARISON: March 26, 2019 11:30 AM FINDINGS: Lungs:The lungs are clear Cardiac silhouette pulmonary vasculature:Heart size is accentuated by exam technique. The patient is also rotated to the left limiting evaluation of the cardiomediastinal silhouette. Pleural spaces:The right costophrenic angle is excluded. Left costophrenic angle appears sharp. Upper abdomen:No abnormality seen. Osseous structures: No acute osseous abnormality. Additional findings:The patient has undergone interval intubation with gastric catheter placement. Th e ET tube tip is seen 4.5 cm from the level of the darwin. The gastric catheter projects beyond the left hemidiaphragm and beyond the [id number]. IMPRESSION: Interval intubation and gastric catheter placement. Limitations in exam as above.
[2019-03-26 14:28] LABS: Actual Bicarbonate (HCO3a) 22.5 mEq/L (22-28); Analyzer IN Cardio ER; Base Excess (BEa) -4.1 mEq/L (-2.0 to +3.0); CO2 Tension 47.9 mmHg (35.0-45.0); Calcium, Ionized 0.87 mmol/L (1.12-1.30); Carboxyhemoglobin (COHb) 0.1 gm% (0.0-3.0); Hemoglobin (Hb) 11.1 g/dL (12.0-16.0); O2 Tension (PaO2) 74.1 mmHg (80.0-100.0); Potassium - ABG Lab 2.36 mmol/L (3.70-5.30); pH, Arterial 7.29 (7.35-7.45)
[2019-03-26 14:30] LABS: ALV-art Gradient 222.525 (0-20); Puncture Site LBA
[2019-03-26] MEDS ORDERED: Propofol 1,000 MG/100 ML VIAL IV ONE (15:46)
[2019-03-26] MEDS ORDERED: Midazolam HCl 5 mg/ml Vial ONE (16:42)
--- NOTE | 2019-03-26 16:42 | CT ---
CT Brain WO Con: 03/26/2019 1:27 PM CLINICAL HISTORY: Altered mental status. IMAGING TECHNIQUE: Multiple CT images were obtained of the brain without IV contrast. COMPARISON: CT brain dated March 01, 2017 FINDINGS: Motion artifact slightly limits image detail of the exam. Infarct: No acute infarct evident. Hemorrhage: None. Hydrocephalus: None.. Basal cisterns: Normal. Cerebral parenchyma: Normal. Midline shift: None. Cerebellum: Normal. Brainstem: Normal. OTHER: Calvarium: Normal. Visualized Paranasal sinuses: There are multiple air-fluid levels within the maxillary sinuses, ethmo id air cells and sphenoid sinus which may be related to patient's intubation. There is gas and fluid seen within the posterior nasopharynx likely related to intubation. Extracranial soft tissues:Normal IMPRESSION: No acute intracranial abnormality. Air-fluid levels within the paranasal sinuses may be related to intubation or prominent sinusitis. There is gas and fluid debris within the posterior nasopharynx which may be related to the patient's intubation. Recommend consideration for suctioning.
[2019-03-26] MEDS ORDERED: Potassium Chloride 20 MEQ TAB ONE (17:04)
[2019-03-26] MEDS ORDERED: Vecuronium 10 MG VIAL ONE (17:53)
[2019-03-26] MEDS ORDERED: methylPREDNISolone Sod Succ/PF 125 MG/2 ML VIAL IVP SCH (18:00)
[2019-03-26] MEDS ORDERED: Sodium Chloride 0.9% 1,000 ML IV SCH (18:00)
[2019-03-26] MEDS ORDERED: Acetaminophen 325 MG TAB PO PRN (18:02)
[2019-03-26] MEDS: Sodium Chloride 0.9% 1,000 ML IV SCH (18:13)
[2019-03-26] MEDS: methylPREDNISolone Sod Succ 40 MG VIAL IVP SCH (18:17)
[2019-03-26] MEDS ORDERED: Dextrose 50% Abboject 50 ML SYRINGE SLOW IVP PRN (18:18)
[2019-03-26] MEDS ORDERED: HumaLOG 300 UNITS/3 ML VIAL SC PRN (18:18)
[2019-03-26] MEDS ORDERED: Dextrose 5% in Water 1,000 ML IV PRN (18:18)
[2019-03-26] MEDS ORDERED: cefTRIAXone\\ROCEPHIN 1 GM in Sodium Chloride 0.9% 100 ML IVPB SCH (18:30)
[2019-03-26] MEDS: Famotidine/PF 20 mg/2ml Vial SLOW IVP SCH (20:14)
[2019-03-26] MEDS: Vecuronium 10 MG VIAL IV PRN (20:56)
[2019-03-27] MEDS: Vecuronium 10 MG VIAL IV PRN ×8 (00:01→21:55)
--- NOTE | 2019-03-27 01:29 | HP ---
CHIEF COMPLAINT: Transfer for respiratory failure. HISTORY OF PRESENT ILLNESS: This patient is a 58-year-old female with a history of end-stage COPD and respiratory failure who has been admitted to this facility on prior occasions with respiratory failure. Most recently, the patient was admitted here in 2017. During that time, the patient required a trach and PEG due to protracted respiratory failure. The patient presented to the emergency department in [place] today with respiratory failure. Per the records from that emergency department visit, the patient was noted to have some altered mental status at home associated with dyspnea. On the arrival of EMS, the patient had a GCS of 12. She had some nebulizer treatments and it came up to 15. They subsequently took her to the emergency department where she was noted to have significant respiratory failure with severe acidosis; however, they placed the patient on a CPAP and she declined intubation. He did not have BiPAP or just full oxygen at that facility, so she was given magnesium, Solu-Medrol, albuterol nebulizer, DuoNeb and subsequently transferred to this facility with acute respiratory failure with hypoxia and hypercapnia. Here, the patient again declined intubation, but did ultimately consent. Just prior to intubation, the patient indicated her preference not to see Dr. Howard because of some concern she had related to past. There were attempts made to transfer the patient to another facility when that failed or amenable to admission here. The patient's was perfectly amenable to staying here with Dr. Howard as well. The patient has been intubated. She has received potassium, 750 mg of Levaquin, DuoNeb, albuterol nebs, and 10 mg of IV Decadron. The patient was subsequently put on a fentanyl drip without significant sedation, took a couple of small doses of Versed and ultimately order placed for propofol drip. However, the patient's blood pressures were borderline. She received 1500 mL of fluids in the emergency department and we were able to get propofol started. She subsequently had been moved to the ICU. Currently, the patient is awake, she is intubated, so she cannot speak, but she is able to nod to help answer some questions. She reports that she actually has been coughing for a couple of weeks following a fall. She has been producing yellow sputum and has been short of breath for at least a couple of weeks now. REVIEW OF SYSTEMS: Not significantly obtainable at this time due to patient's intubated status. PAST MEDICAL HISTORY: Significant for severe COPD with chronic respiratory failure. She has hyperlipidemia, asthma, obesity, and hypertension. PAST SURGICAL HISTORY: Hysterectomy, trach placement, PEG placement, total abdominal hysterectomy. FAMILY HISTORY: Significant for hypertension, diabetes, and asthma. SOCIAL HISTORY: The patient is . Former smoker. Denies alcohol. CURRENT MEDICATIONS: 1. Hydrochlorothiazide 25 mg daily. 2. Trazodone 50 mg daily. 3. Cyclobenzaprine 15 mg p.r.n. 4. Aspirin 81 mg daily. 5. Alprazolam 25 mg, regimen not known. 6. Glipizide 5 mg daily. ALLERGIES: NONE. PHYSICAL EXAMINATION: VITAL SIGNS: BP is 103/80, most recent on the monitor in the ICU was systolic of 130s; pulse 88; respirations 25; O2 saturation 100% on the ventilator. GENERAL APPEARANCE: The patient is intubated. She is asleep, but will awaken, able to answer questions with nods, and then goes back to sleep quickly. She is in no distress and appears to be tolerating the tube well. HEENT: Pupils are constricted and modestly reactive. NECK: Supple and symmetric. HEART: Regular rate and rhythm without murmurs. LUNGS: Significantly diminished. I do not hear wheezes or rales. Now, she has a severely prolonged expiratory phase. ABDOMEN: Soft, nontender, and nondistended. Positive bowel sounds. No masses. No organomegaly. EXTREMITIES: No cyanosis, clubbing, or edema. SKIN: Warm and dry. LABORATORY DATA: White count 13.0, hemoglobin 14.3, and platelets 289. ABG: Initially pH was 7.078, pO2 is 49. Subsequent at 1330 hours today, pH was 7.13, pCO2 was 152, pO2 was 58.6. BNP 126. Troponin less than 0.01. Ammonia was 47, lipase 41. TSH 0.42. Urinalysis is negative. Urine drug screen positive for amphetamines, methamphetamines, and benzodiazepines. Sodium 142, potassium 4.3, chloride 93, CO2 is 41, BUN 12, creatinine 0.7, glucose 248, lactic acid 0.7. LFTs normal. Chest x-ray was clear. CT of the brain was negative. IMPRESSION AND PLAN: 1. Acute hypoxic and hypercapnic respiratory failure. The patient is currently intubated in ICU, followed by Pulmonary. 2. Severe/end-stage chronic obstructive pulmonary disease in a patient who has previously been intubated several times and has had a prior trach and PEG due to prolonged respiratory failure. The patient will receive steroids and nebulizer treatments. She appears to have a component of bronchitis and we will add Rocephin. 3. Diabetes mellitus. We will continue with Accu-Cheks and a sliding scale insulin. 4. History of hypertension. We will monitor pressures have actually been low post intubation. 5. Positive urine drug screen for amphetamines, methamphetamines. There is nothing on her medication list that would suggest they would turn positive on the urine drug screen. We will continue to monitor that. Currently, the patient is requiring some sedation. Job ID: [id number]
--- NOTE | 2019-03-27 02:04 | CON ---
DATE OF CONSULTATION: 03/26/2019 HISTORY OF PRESENT ILLNESS: Ms. Gonzalez is a 58-year-old female, who transferred over to [facility]. I was told by the emergency physician that her PO2 was 151 at 1:30 this afternoon, her pH was 7.13, and she been hypercarbic for quite some time. Her PO2 was 58. She came over a noninvasive ventilation. The ER physician consulted me and I recommended intubation. She said in [place] that she did not want to be intubated, but when the arrived, he was put into the terms of she is going to without intubation, and he agreed to intubation. She told the emergency physician that she did not want to see me. I intubated her in 2017. Attempts at transfer were unsuccessful. She subsequently has been admitted to the critical care unit. When I saw her back in 2016, she was only speaking in 3-word sentences and extremely distressed. She had been transferred from a prior intubation to an LTAC with a tracheostomy. This was removed at the LTAC prior to her being discharged and then she was presented here with no tracheostomy orifice, requiring intubation. She somehow made it out of the hospital without a tracheostomy to go to rehab. From what I can tell, she has been seen here since then. She was seen in late October in the [facility] asking for prescription refill. Apparently, they live up in the [place] area. The apparently had no issues with me and wanted me to take care of her. The patient eventually nodded that she would allow me to take care of her. It is unclear what the issues were when I saw her, but she was followed by Dr. Prasad after he returned from vacation. She was sedated while I was taking care of her , mechanically ventilated, so I am not really sure what the issue was. In any event, she is here and intubated. PAST MEDICAL HISTORY: Remarkable for; 1. Very severe chronic obstructive pulmonary disease. 2. History of being intubated in the field in February 2017. 3. History of lipid disorder. 4. History of a trach and a PEG with that admission. 5. History of hypertension. 6. Status post hysterectomy. 7. History of obesity. SOCIAL HISTORY: She is a former smoker, nondrinker. ALLERGIES: NO DRUG ALLERGIES. FAMILY HISTORY: There is no family history of lung disease in early age. REVIEW OF SYSTEMS: 10 point review of systems completed, not obtainable since she is intubated. PHYSICAL EXAMINATION: GENERAL: She will open her eyes to voice. She is on fentanyl and propofol. VITAL SIGNS: She is afebrile. Pulse is 91, blood pressure is 127/76, respiratory rate is in the 20s. She has 6-second exhale time. Oximetry is 94. HEENT: Pupils are equal. Sclerae are anicteric. LUNGS: Remarkable for distant breath sounds. HEART: Regular rhythm. ABDOMEN: Soft and nontender. EXTREMITIES: Without asymmetry. SKIN: She has crusting around her right naris. LABORATORY DATA: White count is 13, hemoglobin 14.3, platelets 289. PH 7.29, CO2 of 47, PO2 of 74. Electrolytes are unremarkable. ASSESSMENT AND PLAN: She will need permissive hypercapnia to ventilate her for at least 24 hours. Vecuronium has been ordered, a Versed drip has been ordered since she is not sedated with fentanyl. The fentanyl and propofol can be discontinued. She will need to be kept paralyzed until her bronchospasm improves. She will need frequent nebulizer treatments. We will follow the other physicians until Dr. Prasad returns on Thursday. Critical care time is 35 minutes. Job ID: [id number] MTDD
[2019-03-27] MEDS ORDERED: Fentanyl CADD 250 ML IVPB SCH (02:14)
[2019-03-27] MEDS ORDERED: Fentanyl BOLUS 250 ML IVPB PRN (02:14)
[2019-03-27] MEDS ORDERED: DISCONTINUE PREVIOUS NARCOTIC PAIN MEDICATIONS AND BENZODIAZEPINES FS SCH (02:14)
[2019-03-27] MEDS ORDERED: Propofol 1,000 MG/100 ML VIAL IV PRN (02:14)
[2019-03-27] MEDS ORDERED: fentaNYL Citrate/PF 2,000 MCG in Sodium Chloride 0.9% 60 ML IV SCH (02:14)
[2019-03-27] MEDS ORDERED: Propofol BOLUS 1,000 MG/100 ML VIAL IV PRN (02:14)
[2019-03-27] MEDS ORDERED: Propofol 1,000 MG/100 ML VIAL IV ONE (02:15)
[2019-03-27] MEDS: Sodium Chloride 0.9% 1,000 ML IV SCH ×3 (04:52→23:43)
[2019-03-27] MEDS: methylPREDNISolone Sod Succ 40 MG VIAL IVP SCH ×5 (05:04→23:43)
[2019-03-27] MEDS: HumaLOG 300 UNITS/3 ML VIAL SC PRN (06:41)
[2019-03-27 06:53] LABS: Actual Bicarbonate (HCO3a) 32.9 mEq/L (22-28); Base Excess (BEa) 6.2 mEq/L (-2.0 to +3.0); Calcium, Ionized 1.13 mmol/L (1.12-1.30); Hemoglobin (Hb) 12.7 g/dL (12.0-16.0); O2 Tension (PaO2) 137.8 mmHg (80.0-100.0); Potassium - ABG Lab 3.57 mmol/L (3.70-5.30); pH, Arterial 7.38 (7.35-7.45)
[2019-03-27 06:56] LABS: Puncture Site LRA
[2019-03-27 09:11] LABS: Band 5 % (5-11); Hemoglobin 12.5 g/dL (12.0-16.0); Lymphocytes 9 % (21-51); MDiff Complete? YES; Mean Corpuscular HGB CONC 31.6 g/dL (32.0-36.0); Mean Corpuscular Hemoglobin 28.2 pg (27.0-31.0); Mean Corpuscular Volume 89.4 fL (78.0-98.0); Mean Platelet Volume 7.7 fL (7.4-10.4); Neutrophil 85 % (42-75); Platelet Count 229 thou/uL (130-400); Promyelocytes 1 % (0-0); RBC Distribution Width 12.9 % (11.5-14.5); Red Blood Cell (RBC) Count 4.42 mill/uL (4.20-5.40); Toxic Granulation SLIGHT; White Blood Cell (WBC) Count 8.3 thou/uL (4.8-10.8)
[2019-03-27] MEDS: Enoxaparin Sodium 40 MG/0.4 ML SYRINGE SC SCH (10:04)
[2019-03-27] MEDS: Famotidine/PF 20 mg/2ml Vial SLOW IVP SCH ×2 (10:04→21:46)
--- NOTE | 2019-03-27 11:13 | PRG ---
DATE OF SERVICE: 03/27/2019 SUBJECTIVE: Ms. Gonzalez is sedated. Fentanyl was not sedating her. She is on propofol and Versed. I have asked the nurses to switch to just a higher dose of Versed drip and discontinue the propofol. She still has a 6-second exhale time. OBJECTIVE: HEART: Regular rhythm. ABDOMEN: Soft. EXTREMITIES: Without asymmetry. VITAL SIGNS: She is afebrile, heart rate 102, and blood pressure 136/73. Intake and output were positive 930. LABORATORY STUDIES: White count 8.3, hemoglobin 12.5, and platelets 229. A pH of 7.38, CO2 is 57, pO2 of 137. IMPRESSION AND PLAN: Acute on chronic respiratory failure with hypoxia and hypercarbia. She presented to the emergency room from [place] with CO2 of 150. She was transferred here on BiPAP and subsequently intubated. She will not be weaning from mechanical ventilation at any time soon. CRITICAL CARE TIME: 30 minutes. Job ID: [id number]
--- NOTE | 2019-03-27 13:35 | PDOC.PN ---
- Subjective Encounter Start Date: 03/27/19 Encounter Start Time: 13:33 Sedated, but still animated much of the time. - Objective Resuscitation Status - Order Detail: 03/26/19 18:02 Resuscitation Status Routine Resuscitation Status: FULL: Full Resuscitation Vital Signs & Weight: Vital Signs (12 hours) Temp Pulse Resp BP Pulse Ox 03/27/19 13:06 96 151/88 H 03/27/19 13:05 94 12 97 03/27/19 12:00 99.7 F H 12 03/27/19 10:12 102 H 136/73 03/27/19 10:08 106 H 12 95 03/27/19 10:00 12 03/27/19 08:00 99.6 F 12 96 03/27/19 06:19 91 143/73 H 03/27/19 06:18 84 12 98 03/27/19 06:00 12 03/27/19 04:00 98.3 F 12 03/27/19 02:00 12 Weight Weight 187 lb 6.287 oz Most Recent Monitor Data Heart Rate from ECG 97 NIBP 151/88 NIBP BP-Mean 109 Respiration from ECG 20 SpO2 97 I&O: 03/26/19 03/27/19 03/28/19 06:59 06:59 06:59 Intake Total 1485 46 Output Total 555 285 Balance 930 -239 Result Diagrams: 03/27/19 06:11 Additional Labs: Accuchecks 03/27/19 03/27/19 03/26/19 12:12 06:36 21:44 POC Glucose 157 H 170 H 170 H Phys Exam - Physical Examination Constitutional: NAD Intubated, sedated. Very diminished, but no wheezes audible. Cardiovascular: RRR, no significant murmur Gastrointestinal: soft, non-tender, no distention Diminished BS. Musculoskeletal: no edema Dx/Plan (1) COPD exacerbation Code(s): J44.1 - CHRONIC OBSTRUCTIVE PULMONARY DISEASE W (ACUTE) EXACERBATION Status: Acute (2) Hypertension Code(s): I10 - ESSENTIAL (PRIMARY) HYPERTENSION Status: Chronic Qualifiers: Hypertension type: essential hypertension Qualified Code(s): I10 - Essential (primary) hypertension (3) Acute respiratory failure with hypoxia and hypercapnia Code(s): J96.01 - ACUTE RESPIRATORY FAILURE WITH HYPOXIA; J96.02 - ACUTE RESPIRATORY FAILURE WITH HYPERCAPNIA Status: Resolved (4) Diabetes mellitus Code(s): E11.9 - TYPE 2 DIABETES MELLITUS WITHOUT COMPLICATIONS Status: Acute (5) Positive urine drug screen Code(s): R82.5 - ELEVATED URINE LEVELS OF DRUG/MEDS/BIOL SUBST Status: Acute Comment: Amphetamine/methamphetamine (6) Hypophosphatemia Code(s): E83.39 - OTHER DISORDERS OF PHOSPHORUS METABOLISM Status: Acute - Plan * In ICU, Pulmonary following. * Continue ventilator support. Still very tight and will likely take while to improve given her advanced lung dz and her history of similar episodes. * Abx for probable bronchitis and severe COPD exacerbation. * Steroids, nebs. * Sliding scale insulin. * Still has NGT to suction. May need some enteral nutrition soon.
[2019-03-27] MEDS ORDERED: PHOS-NAK 1 PKT PACK PER TUBE SCH (13:45)
[2019-03-27] MEDS: Lorazepam 2 MG/ML VIAL SLOW IVP PRN ×2 (16:50→23:43)
[2019-03-27] MEDS: cefTRIAXone\\ROCEPHIN 1 GM in Sodium Chloride 0.9% 100 ML IVPB SCH (17:11)
[2019-03-28] MEDS: Vecuronium 10 MG VIAL IV PRN ×9 (01:13→21:31)
[2019-03-28] MEDS: HumaLOG 300 UNITS/3 ML VIAL SC PRN ×2 (02:21→23:01)
[2019-03-28] MEDS: Lorazepam 2 MG/ML VIAL SLOW IVP PRN ×3 (02:21→23:07)
[2019-03-28 03:10] LABS: Band 1 % (5-11); Hemoglobin 12.7 g/dL (12.0-16.0); Lymphocytes 3 % (21-51); MDiff Complete? YES; Mean Corpuscular HGB CONC 31.6 g/dL (32.0-36.0); Mean Corpuscular Hemoglobin 28.1 pg (27.0-31.0); Mean Corpuscular Volume 88.8 fL (78.0-98.0); Mean Platelet Volume 7.7 fL (7.4-10.4); Monocytes 2 % (0-10); Neutrophil 93 % (42-75); Platelet Count 223 thou/uL (130-400); RBC Distribution Width 12.9 % (11.5-14.5); Reactive Lymphocytes 1 % (0-10); Red Blood Cell (RBC) Count 4.51 mill/uL (4.20-5.40); White Blood Cell (WBC) Count 9.4 thou/uL (4.8-10.8)
[2019-03-28 03:19] LABS: Anion Gap 10 mmol/L (10-20); BUN (Urea Nitrogen) 20 mg/dL (9.8-20.1); Calc. Creatinine Clearance 153 mL/min (70-130); Calcium 8.7 mg/dL (7.8-10.44); Carbon Dioxide 33 mmol/L (22-29); Chloride 104 mmol/L (98-107); Estimated GFR-MDRD Greater than 90; Glucose 187 mg/dL (70-105); Potassium 3.5 mmol/L (3.5-5.1); Sodium 143 mmol/L (136-145)
[2019-03-28] MEDS: methylPREDNISolone Sod Succ 40 MG VIAL IVP SCH ×4 (05:09→23:00)
[2019-03-28 07:09] LABS: Actual Bicarbonate (HCO3a) 32.2 mEq/L (22-28); Base Excess (BEa) 5.6 mEq/L (-2.0 to +3.0); CO2 Tension 55.6 mmHg (35.0-45.0); Calcium, Ionized 1.18 mmol/L (1.12-1.30); Carboxyhemoglobin (COHb) 0.9 gm% (0.0-3.0); Hemoglobin (Hb) 13.1 g/dL (12.0-16.0); O2 Tension (PaO2) 81.9 mmHg (80.0-100.0); Potassium - ABG Lab 3.42 mmol/L (3.70-5.30); pH, Arterial 7.38 (7.35-7.45)
[2019-03-28 07:12] LABS: Puncture Site LRA
--- NOTE | 2019-03-28 08:36 | RAD ---
CHEST ONE VIEW: HISTORY: Dyspnea. Followup. COMPARISON: 03/26/2019 FINDINGS: The cardiac silhouette is magnified by projection. The pulmonary vasculature remains prominent on th e right. Hyperinflation of the right lung compared to the left is similar in appearance to the prior study. Lines and tubes appear unchanged in position. No evidence of pneumothorax. IMPRESSION: Stable radiographic appearance of the chest. POS: [facility]
[2019-03-28] MEDS ORDERED: Famotidine/PF 20 mg/2ml Vial ONE (08:51)
[2019-03-28] MEDS ORDERED: Enoxaparin Sodium 40 MG/0.4 ML SYRINGE ONE (08:51)
[2019-03-28] MEDS: Enoxaparin Sodium 40 MG/0.4 ML SYRINGE SC SCH (08:59)
[2019-03-28] MEDS: Famotidine/PF 20 mg/2ml Vial SLOW IVP SCH ×2 (08:59→19:55)
[2019-03-28] MEDS: Sodium Chloride 0.9% 1,000 ML IV SCH ×2 (09:04→19:55)
--- NOTE | 2019-03-28 09:46 | PRG ---
DATE OF SERVICE: 03/28/2019 A 35 minutes of critical care time. SUBJECTIVE: This patient remains intubated on mechanical ventilation. She is paralyzed due to respiratory issues and uncooperative state. OBJECTIVE: VITAL SIGNS: Temperature is 98.4, pulse 101, blood pressure 150/78, and O2 saturation 98%. Intake for 24 hours 2424 and output 1115. HEENT: Unremarkable. NECK: No JVD. LUNGS: Tight end expiratory wheezing. CARDIAC: S1 and S2. Regular. ABDOMEN: Soft and nontender. EXTREMITIES: No edema. LABORATORY DATA: Urine drug test is noted positive for amphetamines, methamphetamines, and benzodiazepines. White blood cell count 9.4, hematocrit 40, and platelet count 223. A pH of 7.3, pCO2 of 55, pO2 of 81, SIMV rate of 12, tidal volume of 450, PEEP of 5, pressure support of 10, and FiO2 of 30%. Sodium 143, potassium 3.5, chloride 104, CO2 of 33, BUN 20, creatinine 0.5, and glucose 187. ASSESSMENT: 1. Chronic obstructive pulmonary disease with exacerbation. 2. Drug screen positive methamphetamines and amphetamines. 3. Acute hypercapnic respiratory failure, requiring mechanical ventilation. PLAN: 1. She is not weanable at this time secondary to continued severe bronchospasm. We will keep her on the steroids, aggressive nebulization treatments, and antibiotics. I will update family when available. 2. Initiate tube feeding. Job ID: [id number]
[2019-03-28] MEDS ORDERED: Vecuronium 10 MG VIAL ONE (10:06)
--- NOTE | 2019-03-28 14:08 | PDOC.PN ---
- Subjective Encounter Start Date: 03/28/19 Encounter Start Time: 11:40 -: non-verbal Subjective: Patient remains intubated and sedated. No changes overnight. - Objective Resuscitation Status - Order Detail: 03/26/19 18:02 Resuscitation Status Routine Resuscitation Status: FULL: Full Resuscitation MAR Reviewed: Yes Vital Signs & Weight: Vital Signs (12 hours) Temp Pulse Resp BP Pulse Ox 03/28/19 12:41 108 H 131/79 03/28/19 12:40 109 H 12 97 03/28/19 12:00 98.6 F 12 03/28/19 10:20 112 H 147/83 H 03/28/19 10:19 115 H 24 H 97 03/28/19 10:00 12 03/28/19 08:00 98.4 F 12 03/28/19 07:52 98 03/28/19 06:37 106 H 135/66 03/28/19 06:35 104 H 12 99 03/28/19 06:00 12 03/28/19 04:00 12 03/28/19 03:00 99 F 03/28/19 02:52 99 03/28/19 02:51 99 12 99 Weight Admit Weight 187 lb Weight 187 lb 5 oz Most Recent Monitor Data Heart Rate from ECG 121 NIBP 151/74 NIBP BP-Mean 99 Respiration from ECG 29 SpO2 97 I&O: 03/27/19 03/28/19 03/29/19 06:59 06:59 06:59 Intake Total 1485 2424.3 Output Total 555 1115 275 Balance 930 1309.3 -275 Result Diagrams: 03/28/19 02:10 03/28/19 02:10 Additional Labs: Accuchecks 03/28/19 03/28/19 03/27/19 12:07 02:12 21:55 POC Glucose 183 H 186 H 170 H 03/27/19 03/27/19 17:34 16:50 POC Glucose 188 H 158 H Phys Exam - Physical Examination Constitutional: NAD HEENT: moist MMs Respiratory: no rales, no rhonchi tight breath sounds with wheezing bilaterally Cardiovascular: RRR Gastrointestinal: soft, positive bowel sounds Neurological: non-focal Deviation from normal: opens eyes to stimulation, nods yes to all questions Dx/Plan (1) COPD exacerbation Code(s): J44.1 - CHRONIC OBSTRUCTIVE PULMONARY DISEASE W (ACUTE) EXACERBATION Status: Acute (2) Acute respiratory failure with hypoxia and hypercapnia Code(s): J96.01 - ACUTE RESPIRATORY FAILURE WITH HYPOXIA; J96.02 - ACUTE RESPIRATORY FAILURE WITH HYPERCAPNIA Status: Acute Comment: currently intubated, paralyzed to allow proper ventilation (3) HLD (hyperlipidemia) Code(s): E78.5 - HYPERLIPIDEMIA, UNSPECIFIED Status: Chronic Qualifiers: Hyperlipidemia type: unspecified Qualified Code(s): E78.5 - Hyperlipidemia , unspecified (4) Hypertension Code(s): I10 - ESSENTIAL (PRIMARY) HYPERTENSION Status: Chronic Qualifiers: Hypertension type: essential hypertension Qualified Code(s): I10 - Essential (primary) hypertension (5) Diabetes mellitus type 2 in obese Code(s): E11.69 - TYPE 2 DIABETES MELLITUS WITH OTHER SPECIFIED COMPLICATION; E66.9 - OBESITY, UNSPECIFIED Status: Chronic (6) Hypophosphatemia Code(s): E83.39 - OTHER DISORDERS OF PHOSPHORUS METABOLISM Status: Acute Comment: starting tube feeds (7) Positive urine drug screen Code(s): R82.5 - ELEVATED URINE LEVELS OF DRUG/MEDS/BIOL SUBST Status: Acute Comment: Amphetamine/methamphetamine - Plan cont current plan of care, continue antibiotics, respiratory therapy, DVT proph w/lovenox continue respiratory support, not able to wean currently * . - Discharge Day Encounter end time: 11:50
[2019-03-28] MEDS: cefTRIAXone\\ROCEPHIN 1 GM in Sodium Chloride 0.9% 100 ML IVPB SCH (18:04)
[2019-03-28] MEDS: Morphine 2 MG/ML SYRINGE SLOW IVP PRN ×2 (18:17→22:56)
[2019-03-29] MEDS: Lorazepam 2 MG/ML VIAL SLOW IVP PRN (03:40)
[2019-03-29 04:27] LABS: Anion Gap 10 mmol/L (10-20); BUN (Urea Nitrogen) 18 mg/dL (9.8-20.1); Calc. Creatinine Clearance 172 mL/min (70-130); Calcium 8.6 mg/dL (7.8-10.44); Carbon Dioxide 31 mmol/L (22-29); Chloride 106 mmol/L (98-107); Estimated GFR-MDRD Greater than 90; Glucose 195 mg/dL (70-105); Potassium 3.2 mmol/L (3.5-5.1); Sodium 144 mmol/L (136-145)
[2019-03-29] MEDS: methylPREDNISolone Sod Succ 40 MG VIAL IVP SCH ×3 (05:01→18:17)
[2019-03-29] MEDS: Sodium Chloride 0.9% 1,000 ML IV SCH ×2 (05:01→17:17)
[2019-03-29] MEDS: HumaLOG 300 UNITS/3 ML VIAL SC PRN ×2 (05:02→17:18)
[2019-03-29 05:10] LABS: Band 7 % (5-11); Hemoglobin 12.9 g/dL (12.0-16.0); Lymphocytes 4 % (21-51); MDiff Complete? YES; Mean Corpuscular Hemoglobin 28.3 pg (27.0-31.0); Mean Corpuscular Volume 88.2 fL (78.0-98.0); Monocytes 5 % (0-10); Neutrophil 84 % (42-75); Platelet Count 194 thou/uL (130-400); RBC Distribution Width 13.1 % (11.5-14.5); Red Blood Cell (RBC) Count 4.56 mill/uL (4.20-5.40); White Blood Cell (WBC) Count 7.7 thou/uL (4.8-10.8)
[2019-03-29 07:15] LABS: Actual Bicarbonate (HCO3a) 31.6 mEq/L (22-28); Analyzer IN Cardio OR; Base Excess (BEa) 4.6 mEq/L (-2.0 to +3.0); CO2 Tension 57.6 mmHg (35.0-45.0); Carboxyhemoglobin (COHb) 1.1 gm% (0.0-3.0); Hemoglobin (Hb) 13.5 g/dL (12.0-16.0); O2 Tension (PaO2) 74.4 mmHg (80.0-100.0); pH, Arterial 7.36 (7.35-7.45)
[2019-03-29 07:25] LABS: Puncture Site LRA
--- NOTE | 2019-03-29 08:11 | RAD ---
SINGLE VIEW OF THE CHEST: Comparison: 03-28-19 History: Ventilated patient with respiratory failure. FINDINGS: Single view of the chest shows normal sized cardiomediastinal silhouette. Lines and tubes are unchang ed in position. Increased interstitial markings are present. There is no evidence of consolidation, m ass, or pleural effusion. IMPRESSION: Stable exam. POS: [facility]
[2019-03-29] MEDS ORDERED: CCU Electrolyte Replacement 1 EACH FS ONE (08:29)
[2019-03-29] MEDS ORDERED: Magnesium Oxide 400 MG TAB PO PRN ×2 (09:02)
[2019-03-29] MEDS ORDERED: PHOS-NAK 1 PKT PACK PO PRN ×2 (09:02)
[2019-03-29] MEDS ORDERED: Potassium Chloride 20 MEQ TAB PO PRN (09:02)
[2019-03-29] MEDS ORDERED: Potassium Phosphate 12 MMOL in Sodium Chloride 0.9% 250 ML 250 ML IV PRN (09:02)
[2019-03-29] MEDS ORDERED: Potassium Phosphate 15 MMOL in Sodium Chloride 0.9% 250 ML 250 ML IV PRN (09:02)
[2019-03-29] MEDS ORDERED: Magnesium 2 GM/50 ML 2 GM in Premix Bag 1 BAG IVPB PRN (09:02)
[2019-03-29] MEDS ORDERED: Potassium Phosphate 9 MMOL in Sodium Chloride 0.9% 100 ML IVPB PRN (09:02)
[2019-03-29] MEDS ORDERED: Potassium Chloride 40 MEQ in Premix Bag 1 BAG IVPB PRN (09:02)
[2019-03-29] MEDS ORDERED: Potassium Chloride 40 MEQ in Sodium Chloride 0.9% 250 ML 250 ML IVPB PRN (09:02)
[2019-03-29] MEDS ORDERED: CCU ELECTROLYTE REPLACEMENT PROTOCOL FS PRN (09:02)
[2019-03-29] MEDS: Enoxaparin Sodium 40 MG/0.4 ML SYRINGE SC SCH (09:09)
[2019-03-29] MEDS: Famotidine/PF 20 mg/2ml Vial SLOW IVP SCH ×2 (09:09→21:17)
--- NOTE | 2019-03-29 09:58 | PRG ---
DATE OF SERVICE: 03/29/2019 35 minutes of critical time. The patient remains intubated on mechanical ventilation with no acute changes overnight. OBJECTIVE: VITAL SIGNS: Temperature is 98.4, pulse 95, blood pressure 160/89, O2 saturation 98%. Total intake for 24 hours 3120, output 2390. HEENT: Unremarkable. NECK: No JVD. LUNGS: Tight, end expiratory wheezing. CARDIAC: S1 and S2 regular. ABDOMEN: Soft. EXTREMITIES: No edema. NEUROLOGICAL: She will follow commands. LABORATORY DATA: Sodium 144, potassium 3.2, chloride 106, CO2 of 31, BUN 18, creatinine 0.5 glucose 195. White blood cell count 7.7, hematocrit 40.2, platelet count 194. ABG; pH 7.36, pCO2 of 58, pO2 of 74 on SIMV rate 12, tidal volume 450, PEEP 5, pressure support of 10, FiO2 30%. ASSESSMENT: 1. Acute hypoxic and hypercapnic respiratory failure secondary to chronic obstructive pulmonary disease exacerbation, requiring mechanical ventilation. 2. Drug screen positive for meth and amphetamines. 3. Continued poor tidal volume, placed on spontaneous breathing mode indicating she is not ready to be extubated. PLAN: 1. Continue steroids, nebs, she will need several more days of mechanical ventilation. 2. Continue enteral tube feeds. Job ID: [id number]
[2019-03-29] MEDS: Vecuronium 10 MG VIAL IV PRN (10:37)
--- NOTE | 2019-03-29 11:00 | PDOC.PN ---
- Subjective Encounter Start Date: 03/29/19 Encounter Start Time: 11:40 -: non-verbal Subjective: Patient remains on vent, less sedated and able to follow -: commands, no changes overnight - Objective Resuscitation Status - Order Detail: 03/26/19 18:02 Resuscitation Status Routine Resuscitation Status: FULL: Full Resuscitation MAR Reviewed: Yes Vital Signs & Weight: Vital Signs (12 hours) Temp Pulse Resp BP Pulse Ox 03/29/19 10:05 95 010/65 03/29/19 10:04 96 26 H 97 03/29/19 10:00 98.3 F 12 03/29/19 08:00 14 97 03/29/19 06:57 96 155/89 H 03/29/19 06:53 96 12 98 03/29/19 06:00 12 03/29/19 04:00 12 03/29/19 03:17 93 12 97 03/29/19 03:00 98.4 F 03/29/19 02:08 97 144/71 H 03/29/19 02:00 12 03/29/19 00:31 102 H 12 97 03/29/19 00:00 12 03/28/19 23:00 98.6 F Weight Admit Weight 187 lb Weight 189 lb 1 oz Most Recent Monitor Data Heart Rate from ECG 95 NIBP 140/65 NIBP BP-Mean 90 Respiration from ECG 31 SpO2 99 I&O: 03/28/19 03/29/19 03/30/19 06:59 06:59 06:59 Intake Total 2424.3 3120 100 Output Total 1115 2390 610 Balance 1309.3 730 -510 Result Diagrams: 03/29/19 03:40 03/29/19 03:30 Additional Labs: Accuchecks 03/29/19 03/28/19 03/28/19 03:51 23:02 18:33 POC Glucose 187 H 177 H 150 H 03/28/19 12:07 POC Glucose 183 H Phys Exam - Physical Examination Constitutional: NAD on vent HEENT: moist MMs Respiratory: no rales, no rhonchi tight wheezy breath sounds bilaterally Cardiovascular: no significant murmur mild tachycardia Gastrointestinal: soft, non-tender, positive bowel sounds Neurological: non-focal Deviation from normal: lightly sedated on vent Dx/Plan (1) COPD exacerbation Code(s): J44.1 - CHRONIC OBSTRUCTIVE PULMONARY DISEASE W (ACUTE) EXACERBATION Status: Acute Comment: On Rocephin, Solu-Medrol, nebs (2) Acute respiratory failure with hypoxia and hypercapnia Code(s): J96.01 - ACUTE RESPIRATORY FAILURE WITH HYPOXIA; J96.02 - ACUTE RESPIRATORY FAILURE WITH HYPERCAPNIA Status: Acute Comment: currently intubated, needs several more days per pulmonology (3) HLD (hyperlipidemia) Code(s): E78.5 - HYPERLIPIDEMIA, UNSPECIFIED Status: Chronic Qualifiers: Hyperlipidemia type: unspecified Qualified Code(s): E78.5 - Hyperlipidemia , unspecified (4) Hypertension Code(s): I10 - ESSENTIAL (PRIMARY) HYPERTENSION Status: Chronic Qualifiers: Hypertension type: essential hypertension Qualified Code(s): I10 - Essential (primary) hypertension (5) Diabetes mellitus type 2 in obese Code(s): E11.69 - TYPE 2 DIABETES MELLITUS WITH OTHER SPECIFIED COMPLICATION; E66.9 - OBESITY, UNSPECIFIED Status: Chronic Comment: decently controlled (6) Hypophosphatemia Code(s): E83.39 - OTHER DISORDERS OF PHOSPHORUS METABOLISM Status: Acute Comment: starting tube feeds (7) Positive urine drug screen Code(s): R82.5 - ELEVATED URINE LEVELS OF DRUG/MEDS/BIOL SUBST Status: Acute Comment: Amphetamine/methamphetamine - Plan cont current plan of care, continue antibiotics, respiratory therapy, DVT proph w/lovenox * . - Discharge Day Encounter end time: 11:50
[2019-03-29] MEDS: Morphine 2 MG/ML SYRINGE SLOW IVP PRN ×3 (11:53→21:30)
[2019-03-29] MEDS: cefTRIAXone\\ROCEPHIN 1 GM in Sodium Chloride 0.9% 100 ML IVPB SCH (18:17)
[2019-03-29] MEDS: Montelukast Sodium 10 mg Tablet PO SCH (21:17)
[2019-03-30] MEDS: HumaLOG 300 UNITS/3 ML VIAL SC PRN ×3 (00:45→18:19)
[2019-03-30] MEDS: methylPREDNISolone Sod Succ 40 MG VIAL IVP SCH ×2 (01:28→06:27)
[2019-03-30] MEDS: Sodium Chloride 0.9% 1,000 ML IV SCH (03:36)
[2019-03-30] MEDS: Morphine 2 MG/ML SYRINGE SLOW IVP PRN (03:45)
[2019-03-30] MEDS ORDERED: Water For Inject, Bacteriostat 30 ML ONE (04:22)
[2019-03-30] MEDS: Vecuronium 10 MG VIAL IV PRN ×7 (04:40→22:45)
[2019-03-30 05:00] LABS: Anion Gap 9 mmol/L (10-20); BUN (Urea Nitrogen) 19 mg/dL (9.8-20.1); Calc. Creatinine Clearance 174 mL/min (70-130); Carbon Dioxide 32 mmol/L (22-29); Chloride 103 mmol/L (98-107); Estimated GFR-MDRD Greater than 90; Glucose 157 mg/dL (70-105); Hemoglobin 14.3 g/dL (12.0-16.0); Lymphocytes 9 % (21-51); MDiff Complete? YES; Mean Corpuscular HGB CONC 31.3 g/dL (32.0-36.0); Mean Corpuscular Hemoglobin 27.8 pg (27.0-31.0); Mean Corpuscular Volume 88.7 fL (78.0-98.0); Mean Platelet Volume 7.8 fL (7.4-10.4); Monocytes 3 % (0-10); Neutrophil 86 % (42-75); Platelet Count 241 thou/uL (130-400); RBC Distribution Width 13.2 % (11.5-14.5); Reactive Lymphocytes 2 % (0-10); Red Blood Cell (RBC) Count 5.16 mill/uL (4.20-5.40); Sodium 140 mmol/L (136-145); White Blood Cell (WBC) Count 12.3 thou/uL (4.8-10.8)
[2019-03-30 07:06] LABS: Actual Bicarbonate (HCO3a) 34.4 mEq/L (22-28); Base Excess (BEa) 6.4 mEq/L (-2.0 to +3.0); Calcium, Ionized 1.24 mmol/L (1.12-1.30); Carboxyhemoglobin (COHb) 1.1 gm% (0.0-3.0); Hemoglobin (Hb) 14.9 g/dL (12.0-16.0); O2 Tension (PaO2) 65.1 mmHg (80.0-100.0); Potassium - ABG Lab 3.88 mmol/L (3.70-5.30); pH, Arterial 7.35 (7.35-7.45)
[2019-03-30 07:41] LABS: CO2 Tension 64.4 mmHg (35.0-45.0); Puncture Site L.R.
[2019-03-30] MEDS ORDERED: Furosemide 40 MG/4 ML VIAL SLOW IVP SCH (08:30)
[2019-03-30] MEDS: Famotidine/PF 20 mg/2ml Vial SLOW IVP SCH ×2 (09:09→20:18)
[2019-03-30] MEDS: Montelukast Sodium 10 mg Tablet PO SCH ×2 (09:09→20:19)
[2019-03-30] MEDS: Enoxaparin Sodium 40 MG/0.4 ML SYRINGE SC SCH (09:09)
--- NOTE | 2019-03-30 10:01 | PRG ---
DATE OF SERVICE: 03/30/2019 35 minutes of critical care time. SUBJECTIVE: The patient remains intubated, on mechanical ventilation. She required a dose of paralytics several hours ago because of agitation. She will wake up and follow commands. OBJECTIVE: VITAL SIGNS: Temperature 97.7, pulse 78, blood pressure 154/91, 24-hour intake 3854 and output 3370. It looks like she has been in positive fluid balance since admission and her weight is up approximately 5 pounds. HEENT: Unremarkable except for excoriation on the right nostril. NECK: No JVD. LUNGS: Tight and expiratory wheezing. CARDIAC: S1 and S2, regular. ABDOMEN: Soft, obese, and nontender. EXTREMITIES: No clubbing, cyanosis, or edema. LABORATORY DATA: White blood cell count 12.3, hematocrit 45.8, and platelet count 241. pH 7.35, pCO2 of 64, pO2 of 65 that is on SIMV rate of 12, tidal volume 450, PEEP 5, pressure support 15, FiO2 of 27%. Sodium 140, potassium 4, chloride 103, CO2 of 32, BUN 19, creatinine 0.5, glucose 157. Ventilator parameters show peak pressures in the low 40s, plateau pressure of 20, indicating significant gap. ASSESSMENT: 1. Status asthmaticus. 2. Chronic obstructive pulmonary disease exacerbation. 3. Acute respiratory failure requiring mechanical ventilation. 4. Fluid overload. PLAN: 1. She has never had an echocardiogram before, so I will check that and see how her systolic function is. 2. Increase steroids. Add Singulair. 3. Stop IV fluids. 4. One dose IV Lasix. 5. Not weanable at the current time. 6. I spoke with yesterday. Job ID: [id number]
[2019-03-30] MEDS: Bacteriostatic Normal Saline 30 ML VIAL ONE ×2 (10:09→10:25)
[2019-03-30] MEDS: methylPREDNISolone Sod Succ/PF 125 MG/2 ML VIAL IVP SCH ×3 (10:26→20:19)
[2019-03-30] MEDS: Lorazepam 2 MG/ML VIAL SLOW IVP PRN ×5 (12:38→22:43)
--- NOTE | 2019-03-30 16:03 | PDOC.PN ---
- Subjective Encounter Start Date: 03/30/19 Encounter Start Time: 11:30 -: non-verbal Subjective: Patient remains intubated. No events overnight. - Objective Resuscitation Status - Order Detail: 03/26/19 18:02 Resuscitation Status Routine Resuscitation Status: FULL: Full Resuscitation Vital Signs & Weight: Vital Signs (12 hours) Temp Pulse Resp BP Pulse Ox 03/30/19 14:00 12 03/30/19 13:13 108 H 170/98 H 03/30/19 13:12 112 H 12 96 03/30/19 12:00 97.4 F L 12 03/30/19 10:51 91 164/92 H 03/30/19 10:49 94 12 95 03/30/19 10:00 21 H 03/30/19 08:00 97.7 F 12 03/30/19 07:35 97 03/30/19 06:50 92 164/85 H 03/30/19 06:48 95 26 H 97 03/30/19 06:00 12 Weight Admit Weight 187 lb Weight 192 lb 0.362 oz Most Recent Monitor Data Heart Rate from ECG 123 NIBP 185/109 NIBP BP-Mean 134 Respiration from ECG 13 SpO2 95 I&O: 03/29/19 03/30/19 03/31/19 06:59 06:59 06:59 Intake Total 3120 3864 Output Total 2390 3370 3625 Balance 730 611 -8712 Result Diagrams: 03/30/19 04:00 03/30/19 04:00 Additional Labs: Accuchecks 03/30/19 03/30/19 03/30/19 11:38 06:04 00:11 POC Glucose 217 H 185 H 189 H 03/29/19 16:44 POC Glucose 192 H Phys Exam - Physical Examination sedated on vent HEENT: moist MMs Respiratory: no rales, no rhonchi scattered wheezes and bilaterally tight breath sounds Cardiovascular: RRR tachycardia resolved this AM Gastrointestinal: soft, positive bowel sounds Musculoskeletal: no edema Neurological: non-focal, moves all 4 limbs Deviation from normal: sedated on the vent, not arousable currently Dx/Plan (1) COPD exacerbation Code(s): J44.1 - CHRONIC OBSTRUCTIVE PULMONARY DISEASE W (ACUTE) EXACERBATION Status: Acute Comment: On Rocephin, Solu-Medrol, nebs (2) Acute respiratory failure with hypoxia and hypercapnia Code(s): J96.01 - ACUTE RESPIRATORY FAILURE WITH HYPOXIA; J96.02 - ACUTE RESPIRATORY FAILURE WITH HYPERCAPNIA Status: Acute Comment: currently intubated, needs several more days per pulmonology (3) HLD (hyperlipidemia) Code(s): E78.5 - HYPERLIPIDEMIA, UNSPECIFIED Status: Chronic Qualifiers: Hyperlipidemia type: unspecified Qualified Code(s): E78.5 - Hyperlipidemia , unspecified (4) Hypertension Code(s): I10 - ESSENTIAL (PRIMARY) HYPERTENSION Status: Chronic Qualifiers: Hypertension type: essential hypertension Qualified Code(s): I10 - Essential (primary) hypertension (5) Diabetes mellitus type 2 in obese Code(s): E11.69 - TYPE 2 DIABETES MELLITUS WITH OTHER SPECIFIED COMPLICATION; E66.9 - OBESITY, UNSPECIFIED Status: Chronic Comment: decently controlled (6) Hypophosphatemia Code(s): E83.39 - OTHER DISORDERS OF PHOSPHORUS METABOLISM Status: Acute Comment: starting tube feeds (7) Positive urine drug screen Code(s): R82.5 - ELEVATED URINE LEVELS OF DRUG/MEDS/BIOL SUBST Status: Acute Comment: Amphetamine/methamphetamine - Plan cont current plan of care, continue antibiotics, respiratory therapy, DVT proph w/lovenox continue ventilator support per Dr. Prasad * . - Discharge Day Encounter end time: 11:45
[2019-03-30] MEDS: cefTRIAXone\\ROCEPHIN 1 GM in Sodium Chloride 0.9% 100 ML IVPB SCH (18:20)
[2019-03-31] MEDS: HumaLOG 300 UNITS/3 ML VIAL SC PRN ×3 (00:27→12:00)
[2019-03-31] MEDS: Lorazepam 2 MG/ML VIAL SLOW IVP PRN ×3 (03:16→22:37)
[2019-03-31] MEDS: methylPREDNISolone Sod Succ/PF 125 MG/2 ML VIAL IVP SCH ×4 (03:32→21:06)
[2019-03-31] MEDS: Vecuronium 10 MG VIAL IV PRN ×3 (03:37→20:54)
[2019-03-31 04:10] LABS: BUN (Urea Nitrogen) 22 mg/dL (9.8-20.1); Calc. Creatinine Clearance 160 mL/min (70-130); Calcium 9.4 mg/dL (7.8-10.44); Estimated GFR-MDRD Greater than 90; Glucose 234 mg/dL (70-105)
[2019-03-31 04:19] LABS: Anion Gap 14 mmol/L (10-20); Carbon Dioxide 35 mmol/L (22-29); Chloride 98 mmol/L (98-107); Potassium 3.7 mmol/L (3.5-5.1); Sodium 143 mmol/L (136-145)
[2019-03-31 04:41] LABS: Band 4 % (5-11); Eosinophils 1 % (0-10); Hemoglobin 14.6 g/dL (12.0-16.0); Lymphocytes 13 % (21-51); MDiff Complete? YES; Mean Corpuscular HGB CONC 31.6 g/dL (32.0-36.0); Mean Corpuscular Hemoglobin 27.6 pg (27.0-31.0); Mean Corpuscular Volume 87.3 fL (78.0-98.0); Mean Platelet Volume 8.1 fL (7.4-10.4); Monocytes 5 % (0-10); Neutrophil 77 % (42-75); Platelet Count 261 thou/uL (130-400); Red Blood Cell (RBC) Count 5.31 mill/uL (4.20-5.40); White Blood Cell (WBC) Count 13.1 thou/uL (4.8-10.8)
[2019-03-31 07:45] LABS: Actual Bicarbonate (HCO3a) 37.8 mEq/L (22-28); Base Excess (BEa) 10.6 mEq/L (-2.0 to +3.0); Calcium, Ionized 1.24 mmol/L (1.12-1.30); Hemoglobin (Hb) 15.1 g/dL (12.0-16.0); O2 Tension (PaO2) 69.2 mmHg (80.0-100.0); Potassium - ABG Lab 3.83 mmol/L (3.70-5.30); pH, Arterial 7.42 (7.35-7.45)
[2019-03-31 07:47] LABS: CO2 Tension 60.2 mmHg (35.0-45.0); Puncture Site L.R.
[2019-03-31] MEDS: Morphine 2 MG/ML SYRINGE SLOW IVP PRN ×4 (08:12→20:53)
[2019-03-31] MEDS: Famotidine/PF 20 mg/2ml Vial SLOW IVP SCH ×2 (08:12→21:05)
[2019-03-31] MEDS: Enoxaparin Sodium 40 MG/0.4 ML SYRINGE SC SCH (08:12)
[2019-03-31] MEDS: Montelukast Sodium 10 mg Tablet PO SCH (08:13)
[2019-03-31] MEDS ORDERED: Dextrose 5% in Water 1,000 ML IV PRN (08:23)
[2019-03-31] MEDS ORDERED: Dextrose 50% Abboject 50 ML SYRINGE SLOW IVP PRN (08:23)
[2019-03-31] MEDS ORDERED: HumaLOG 300 UNITS/3 ML VIAL SC PRN (08:23)
--- NOTE | 2019-03-31 09:15 | PRG ---
DATE OF SERVICE: 03/31/2019 35 minutes critical care time. SUBJECTIVE: The patient remains intubated on mechanical ventilation. There have been no acute changes overnight. She is still requiring high-dose Versed 10 mg an hour along with intermittent paralysis. OBJECTIVE: VITAL SIGNS: Temperature is 98.8, pulse 78, blood pressure 128/70, O2 saturation 96%. Intake for 24 hours 3017, output 5205. Weight 183 pounds. HEENT: Unremarkable, except for excoriation in the right nostril. NECK: No JVD. LUNGS: End expiratory wheezing. Poor air movement. CARDIAC: S1, S2. Regular. ABDOMEN: Soft, nontender. EXTREMITIES: No clubbing, cyanosis, or edema. LABORATORY DATA: Sodium 143, potassium 3.7, chloride 98, CO2 of 35, BUN 20, creatinine 0.5, glucose 234. PH 7.42, pCO2 of 60, PO2 of 69 on SIMV rate 12, tidal volume 450, PEEP 5, pressure 15, FiO2 27%. White blood cell count 13.1, hematocrit 46.3, and platelet count 261. ASSESSMENT: 1. Status asthmaticus. 2. Chronic obstructive pulmonary disease with exacerbation. 3. Acute respiratory failure, requiring mechanical ventilation. 4. Improved fluid overload. PLAN: 1. I will add scheduled Ativan as sedation is a big problem. 2. I have adjusted her ventilator parameters such that she gets a higher flow rate on her spontaneous breaths. 3. Not really weanable beyond that at this time. 4. Continue steroids, nebulization treatments. Job ID: [id number]
[2019-03-31] MEDS: NPH, Human Insulin Isophane 300 UNIT/3 ML VIAL SC SCH ×2 (10:12→21:10)
[2019-03-31] MEDS: Lorazepam 1 MG TAB PER TUBE SCH ×2 (11:56→17:05)
--- NOTE | 2019-03-31 16:46 | PDOC.PN ---
- Subjective Encounter Start Date: 03/31/19 Encounter Start Time: 11:50 -: non-verbal Subjective: Patient failed wean off vent this AM. No events overnight. - Objective Resuscitation Status - Order Detail: 03/26/19 18:02 Resuscitation Status Routine Resuscitation Status: FULL: Full Resuscitation Vital Signs & Weight: Vital Signs (12 hours) Temp Pulse Resp BP Pulse Ox 03/31/19 16:35 120 H 131/98 H 03/31/19 16:32 126 H 12 98 03/31/19 14:02 102 H 140/84 03/31/19 14:00 22 H 03/31/19 13:50 109 H 32 H 92 L 03/31/19 12:00 12 03/31/19 11:00 97.9 F 03/31/19 10:37 91 143/70 H 03/31/19 10:36 92 21 H 97 03/31/19 10:00 36 H 03/31/19 08:00 29 H 97 03/31/19 07:00 97.9 F 03/31/19 06:53 79 128/70 03/31/19 06:52 78 12 97 03/31/19 06:00 98.8 F Weight Admit Weight 187 lb Weight 183 lb 3.266 oz Most Recent Monitor Data Heart Rate from ECG 92 NIBP 156/94 NIBP BP-Mean 114 Respiration from ECG 21 SpO2 97 I&O: 03/30/19 03/31/19 04/01/19 06:59 06:59 06:59 Intake Total 3864 3017 120 Output Total 3370 5205 360 Balance 189 -0888 -472 Result Diagrams: 03/31/19 03:20 03/31/19 03:20 Additional Labs: Accuchecks 03/31/19 03/31/19 03/31/19 11:31 06:27 00:27 POC Glucose 183 H 221 H 223 H 03/30/19 18:10 POC Glucose 198 H Phys Exam - Physical Examination Constitutional: NAD HEENT: moist MMs Respiratory: no rales, no rhonchi scattered wheezes and tight breath sounds on vent Cardiovascular: RRR, no significant murmur Gastrointestinal: soft, positive bowel sounds Musculoskeletal: no edema Neurological: non-focal, moves all 4 limbs Deviation from normal: sedated on vent Dx/Plan (1) COPD exacerbation Code(s): J44.1 - CHRONIC OBSTRUCTIVE PULMONARY DISEASE W (ACUTE) EXACERBATION Status: Acute Comment: On Rocephin, Solu-Medrol, nebs (2) Acute respiratory failure with hypoxia and hypercapnia Code(s): J96.01 - ACUTE RESPIRATORY FAILURE WITH HYPOXIA; J96.02 - ACUTE RESPIRATORY FAILURE WITH HYPERCAPNIA Status: Acute Comment: currently intubated, needs several more days per pulmonology (3) HLD (hyperlipidemia) Code(s): E78.5 - HYPERLIPIDEMIA, UNSPECIFIED Status: Chronic Qualifiers: Hyperlipidemia type: unspecified Qualified Code(s): E78.5 - Hyperlipidemia , unspecified (4) Hypertension Code(s): I10 - ESSENTIAL (PRIMARY) HYPERTENSION Status: Chronic Qualifiers: Hypertension type: essential hypertension Qualified Code(s): I10 - Essential (primary) hypertension (5) Diabetes mellitus type 2 in obese Code(s): E11.69 - TYPE 2 DIABETES MELLITUS WITH OTHER SPECIFIED COMPLICATION; E66.9 - OBESITY, UNSPECIFIED Status: Chronic Comment: decently controlled (6) Hypophosphatemia Code(s): E83.39 - OTHER DISORDERS OF PHOSPHORUS METABOLISM Status: Acute Comment: starting tube feeds (7) Positive urine drug screen Code(s): R82.5 - ELEVATED URINE LEVELS OF DRUG/MEDS/BIOL SUBST Status: Acute Comment: Amphetamine/methamphetamine - Plan cont current plan of care, respiratory therapy not yet weanable * . - Discharge Day Encounter end time: 12:10
[2019-03-31] MEDS: cefTRIAXone\\ROCEPHIN 1 GM in Sodium Chloride 0.9% 100 ML IVPB SCH (17:06)
[2019-04-01] MEDS: Morphine 2 MG/ML SYRINGE SLOW IVP PRN (00:20)
[2019-04-01] MEDS: Lorazepam 1 MG TAB PER TUBE SCH ×4 (00:22→17:44)
[2019-04-01] MEDS: HumaLOG 300 UNITS/3 ML VIAL SC PRN ×2 (01:11→06:17)
[2019-04-01] MEDS: methylPREDNISolone Sod Succ/PF 125 MG/2 ML VIAL IVP SCH ×5 (03:34→21:24)
[2019-04-01 04:19] VITALS: BMI 32.0
[2019-04-01 05:07] LABS: BUN (Urea Nitrogen) 24 mg/dL (9.8-20.1); Calc. Creatinine Clearance 152 mL/min (70-130); Calcium 9.1 mg/dL (7.8-10.44); Estimated GFR-MDRD Greater than 90; Glucose 173 mg/dL (70-105)
[2019-04-01 05:15] LABS: Anion Gap 12 mmol/L (10-20); Carbon Dioxide 35 mmol/L (22-29); Chloride 98 mmol/L (98-107); Sodium 141 mmol/L (136-145)
[2019-04-01 07:01] LABS: Actual Bicarbonate (HCO3a) 34.1 mEq/L (22-28); Base Excess (BEa) 8.3 mEq/L (-2.0 to +3.0); CO2 Tension 51.3 mmHg (35.0-45.0); Calcium, Ionized 1.22 mmol/L (1.12-1.30); Carboxyhemoglobin (COHb) 1.3 gm% (0.0-3.0); Hemoglobin (Hb) 15.4 g/dL (12.0-16.0); O2 Tension (PaO2) 73.1 mmHg (80.0-100.0); Potassium - ABG Lab 4.07 mmol/L (3.70-5.30); pH, Arterial 7.44 (7.35-7.45)
[2019-04-01 07:06] LABS: Puncture Site LPA
[2019-04-01 07:07] LABS: ALV-art Gradient 55.285 (0-20)
[2019-04-01 08:29] LABS: Hemoglobin 13.9 g/dL (12.0-16.0); Mean Corpuscular HGB CONC 31.9 g/dL (32.0-36.0); Mean Corpuscular Volume 87.8 fL (78.0-98.0); Mean Platelet Volume 8.1 fL (7.4-10.4); Platelet Count 252 thou/uL (130-400); RBC Distribution Width 13.2 % (11.5-14.5); Red Blood Cell (RBC) Count 4.97 mill/uL (4.20-5.40); White Blood Cell (WBC) Count 17.1 thou/uL (4.8-10.8)
--- NOTE | 2019-04-01 08:47 | PRG ---
DATE OF SERVICE: 04/01/2019 TIME SPENT: 35 minutes critical time. SUBJECTIVE: The patient remains intubated on mechanical ventilation. There has been no acute changes overnight. She remains on a Versed drip at 10 mg/hour. OBJECTIVE: VITAL SIGNS: Temperature 97.6, pulse 97, blood pressure 123/93. A 24-hour intake 415, output 1365. HEENT: Unremarkable. NECK: No adenopathy, JVD, or bruits. LUNGS: Clear without wheezing. CARDIAC: S1 and S2. Regular. ABDOMEN: Soft. EXTREMITIES: No edema. LABORATORY DATA: PH of 7.44, pCO2 of 71, pO2 of 73, that is on SIMV rate 12, tidal volume 450, PEEP 5, pressure support 15, FiO2 of 27%. Sodium 141, potassium 4, chloride 98 CO2 of 35, BUN 24, creatinine 0.5, glucose 173. ASSESSMENT: 1. Acute respiratory failure requiring mechanical ventilation. 2. Chronic obstructive pulmonary disease. 3. Severe agitation. PLAN: I will try her on spontaneous breathing trial and will see if she meets criteria for extubation. The main thing is going to be keeping her anxiety managed. I will check her later this morning. Job ID: [id number]
[2019-04-01 08:57] LABS: Band 1 % (5-11); Lymphocytes 4 % (21-51); MDiff Complete? YES; Monocytes 3 % (0-10); Neutrophil 87 % (42-75); RBC Morphology Normal; Reactive Lymphocytes 5 % (0-10)
--- NOTE | 2019-04-01 09:08 | PDOC.PN ---
- Subjective Encounter Start Date: 04/01/19 (f/u respiratory failure) Encounter Start Time: 09:07 Subjective: Pt on a breathing trial, communicates that she is ready for the tube -: to come out. - Objective Resuscitation Status - Order Detail: 03/26/19 18:02 Resuscitation Status Routine Resuscitation Status: FULL: Full Resuscitation Vital Signs & Weight: Vital Signs (12 hours) Temp Pulse Resp BP Pulse Ox 04/01/19 06:34 95 123/93 H 04/01/19 06:00 19 04/01/19 04:00 97.6 F 12 04/01/19 02:41 87 12 94 L 04/01/19 02:00 16 04/01/19 00:15 92 17 99 04/01/19 00:00 97.7 F 15 03/31/19 22:00 13 03/31/19 21:23 112 H 12 97 Weight Admit Weight 187 lb Weight 192 lb 0.362 oz Most Recent Monitor Data Heart Rate from ECG 97 NIBP 123/93 NIBP BP-Mean 103 Respiration from ECG 18 SpO2 92 I&O: 03/31/19 04/01/19 04/02/19 06:59 06:59 06:59 Intake Total 3017 415 Output Total 5205 1365 Balance -2188 -950 Result Diagrams: 04/01/19 04:30 04/01/19 04:30 Additional Labs: Accuchecks 04/01/19 04/01/19 03/31/19 06:00 01:09 21:11 POC Glucose 150 H 207 H 205 H 03/31/19 03/31/19 17:14 11:31 POC Glucose 146 H 183 H EKG Reviewed by me: Yes (tele - sinus 100's) Phys Exam - Physical Examination Constitutional: NAD Respiratory: no wheezing, no rales, no rhonchi Cardiovascular: RRR, no significant murmur Gastrointestinal: soft, non-tender, no distention, positive bowel sounds Musculoskeletal: no edema, pulses present 2+ dp pulses currently intubated and arms restrained -moving both hands equally Deviation from normal: unable to assess Deviation from normal: small areas of resolving ecchymosis along tibias Dx/Plan (1) COPD exacerbation Code(s): J44.1 - CHRONIC OBSTRUCTIVE PULMONARY DISEASE W (ACUTE) EXACERBATION Status: Acute (2) Acute respiratory failure with hypoxia and hypercapnia Code(s): J96.01 - ACUTE RESPIRATORY FAILURE WITH HYPOXIA; J96.02 - ACUTE RESPIRATORY FAILURE WITH HYPERCAPNIA Status: Acute (3) Dyslipidemia Code(s): E78.5 - HYPERLIPIDEMIA, UNSPECIFIED Status: Chronic (4) Diabetes mellitus Code(s): E11.9 - TYPE 2 DIABETES MELLITUS WITHOUT COMPLICATIONS Status: Chronic Qualifiers: Diabetes mellitus type: type 2 (5) Hypertension Code(s): I10 - ESSENTIAL (PRIMARY) HYPERTENSION Status: Chronic Qualifiers: Hypertension type: essential hypertension Qualified Code(s): I10 - Essential (primary) hypertension - Plan * Appreciate Pulmonology care - extubation per Dr. Prasad, nebs, antibiotics * Continue monitoring blood sugars. * Hold on home medications - resume as indicated for blood pressure or other needs * * dvt prophy - lovenox * gi prophy - change to oral or d/c post-extubation * code status full * * pt remains at high risk in current condition
[2019-04-01] MEDS: Enoxaparin Sodium 40 MG/0.4 ML SYRINGE SC SCH (10:35)
[2019-04-01] MEDS: Montelukast Sodium 10 mg Tablet PO SCH (10:36)
[2019-04-01] MEDS: Famotidine/PF 20 mg/2ml Vial SLOW IVP SCH ×2 (10:37→21:24)
[2019-04-01] MEDS: NPH, Human Insulin Isophane 300 UNIT/3 ML VIAL SC SCH ×2 (12:37→21:33)
[2019-04-01] MEDS: cefTRIAXone\\ROCEPHIN 1 GM in Sodium Chloride 0.9% 100 ML IVPB SCH (17:46)
[2019-04-02] MEDS: Lorazepam 1 MG TAB PER TUBE SCH ×2 (00:18→06:22)
[2019-04-02] MEDS: methylPREDNISolone Sod Succ/PF 125 MG/2 ML VIAL IVP SCH (03:40)
[2019-04-02 04:54] LABS: Hemoglobin 14.4 g/dL (12.0-16.0); Lymphocytes 4 % (21-51); MDiff Complete? YES; Mean Corpuscular HGB CONC 30.5 g/dL (32.0-36.0); Mean Corpuscular Hemoglobin 27.4 pg (27.0-31.0); Mean Platelet Volume 8.2 fL (7.4-10.4); Monocytes 1 % (0-10); Neutrophil 88 % (42-75); Platelet Count 254 thou/uL (130-400); Platelet Morphology Comment Appears Adequate; RBC Distribution Width 13.2 % (11.5-14.5); RBC Morphology Normal; Reactive Lymphocytes 7 % (0-10); Red Blood Cell (RBC) Count 5.24 mill/uL (4.20-5.40); White Blood Cell (WBC) Count 17.1 thou/uL (4.8-10.8)
[2019-04-02 05:07] LABS: BUN (Urea Nitrogen) 21 mg/dL (9.8-20.1); Calc. Creatinine Clearance 152 mL/min (70-130); Calcium 9.1 mg/dL (7.8-10.44); Estimated GFR-MDRD Greater than 90; Glucose 113 mg/dL (70-105)
[2019-04-02 05:18] LABS: Chloride 99 mmol/L (98-107); Potassium 4.6 mmol/L (3.5-5.1); Sodium 142 mmol/L (136-145)
[2019-04-02 05:20] LABS: Anion Gap 11 mmol/L (10-20); Carbon Dioxide 37 mmol/L (22-29)
[2019-04-02] MEDS ORDERED: Lorazepam 1 MG TAB PO PRN (07:59)
[2019-04-02] MEDS: Famotidine/PF 20 mg/2ml Vial SLOW IVP SCH (08:26)
[2019-04-02] MEDS: Enoxaparin Sodium 40 MG/0.4 ML SYRINGE SC SCH (08:26)
[2019-04-02] MEDS: Montelukast Sodium 10 mg Tablet PO SCH (08:26)
[2019-04-02] MEDS: methylPREDNISolone Sod Succ 40 MG VIAL IVP SCH ×3 (08:35→20:23)
[2019-04-02] MEDS: NPH, Human Insulin Isophane 300 UNIT/3 ML VIAL SC SCH (08:36)
--- NOTE | 2019-04-02 09:08 | PRG ---
DATE OF SERVICE: 04/02/2019 SUBJECTIVE: Ms. Gonzalez was successfully extubated yesterday. She has a great deal of difficulty with agitation afterward that has finally settled down. Today, she had no specific complaints. OBJECTIVE: VITAL SIGNS: Temperature is 98.2, pulse 84, blood pressure 142/73, and O2 saturation 97% on nasal cannula. HEENT: Unremarkable. No JVD. LUNGS: Clear anteriorly. CARDIAC: S1 and S2 regular without murmur. ABDOMEN: Soft, obese, and nontender. EXTREMITIES: No clubbing, cyanosis, or edema. LABORATORY DATA: Sodium 142, potassium 4.6, chloride 99, CO2 of 37, BUN 21, creatinine 0.5, and glucose 113. White blood cell count 17.1, hematocrit 47.2, and platelet count 254. ASSESSMENT: 1. Status post acute respiratory failure requiring mechanical ventilation. 2. Chronic obstructive pulmonary disease with exacerbation. 3. Delirium. PLAN: 1. I will go ahead and cut her steroid dose down significantly. 2. I initiate PT consult. 3. Start diet. 4. Up in chair as tolerated. 5. If does well today, then consider moving to [facility] tomorrow. 6. Stop ceftriaxone. Job ID: [id number]
[2019-04-02] MEDS ORDERED: Albuterol Sulfate 1.25 MG/3 ML NEB NEB PRN (09:29)
--- NOTE | 2019-04-02 09:33 | PDOC.PN ---
- Subjective Encounter Start Date: 04/02/19 (f/u DM) Encounter Start Time: 09:31 Subjective: Pt c/o chest tightness, requesting a breathing treatment. Denies -: any changes or other concerns - Objective Resuscitation Status - Order Detail: 03/26/19 18:02 Resuscitation Status Routine Resuscitation Status: FULL: Full Resuscitation Vital Signs & Weight: Vital Signs (12 hours) Temp Pulse Resp Pulse Ox 04/02/19 08:00 97.8 F 04/02/19 06:30 88 19 99 04/02/19 04:10 97 04/02/19 04:09 97 04/02/19 04:00 98.2 F 04/02/19 01:48 97 04/02/19 00:00 98.5 F 04/01/19 22:27 94 26 H 97 04/01/19 22:24 97 Weight Admit Weight 187 lb Weight 189 lb 6.033 oz Most Recent Monitor Data Heart Rate from ECG 75 NIBP 119/65 NIBP BP-Mean 83 Respiration from ECG 19 SpO2 96 I&O: 04/01/19 04/02/19 04/03/19 06:59 06:59 06:59 Intake Total 415 79.3 135 Output Total 1365 2025 125 Balance -950 -1945.7 10 Result Diagrams: 04/02/19 04:30 04/02/19 04:30 Additional Labs: Accuchecks 04/01/19 21:34 POC Glucose 107 EKG Reviewed by me: Yes (tele - sinus 80's) Phys Exam - Physical Examination Constitutional: NAD Respiratory: no wheezing, no rales, no rhonchi fair air movement, speaking in short phrases Cardiovascular: RRR, no significant murmur Gastrointestinal: soft, non-tender, no distention, positive bowel sounds Musculoskeletal: no edema Neurological: non-focal, moves all 4 limbs Psychiatric: normal affect Dx/Plan (1) COPD exacerbation Code(s): J44.1 - CHRONIC OBSTRUCTIVE PULMONARY DISEASE W (ACUTE) EXACERBATION Status: Acute (2) Acute respiratory failure with hypoxia and hypercapnia Code(s): J96.01 - ACUTE RESPIRATORY FAILURE WITH HYPOXIA; J96.02 - ACUTE RESPIRATORY FAILURE WITH HYPERCAPNIA Status: Acute (3) Dyslipidemia Code(s): E78.5 - HYPERLIPIDEMIA, UNSPECIFIED Status: Chronic (4) Diabetes mellitus Code(s): E11.9 - TYPE 2 DIABETES MELLITUS WITHOUT COMPLICATIONS Status: Chronic Qualifiers: Diabetes mellitus type: type 2 (5) Hypertension Code(s): I10 - ESSENTIAL (PRIMARY) HYPERTENSION Status: Chronic Qualifiers: Hypertension type: essential hypertension Qualified Code(s): I10 - Essential (primary) hypertension - Plan * * Appreciate Pulmonology care - extubated yesterday * Add q1h prn nebs * Continue monitoring blood sugars - improved today. Due to normal blood sugar , and reduction in steroids - will d/c NPH with goal of avoiding hypoglycemia. * Resume glipizide at home dosing * continue SSI * Hold bp meds - bp has been normal, resume as needed * Hold home trazodone. Will order prn Xanax - she reports taking this at home HS * * D/c burnett catheter * * dvt prophy - lovenox * gi prophy - change to oral due to steroids * code status full * * pt remains at high risk in current condition.
[2019-04-02] MEDS: ALPRAZolam 0.25 MG TAB PO PRN (11:41)
--- NOTE | 2019-04-02 13:45 | EKG ---
Test Reason : SOB Blood Pressure : / mmHG Vent. Rate : 095 BPM Atrial Rate : 095 BPM P-R Int : 152 ms QRS Dur : 138 ms QT Int : 390 ms P-R-T Axes : 069 055 057 degrees QTc Int : 490 ms Normal sinus rhythm Left bundle branch block Abnormal ECG Confirmed by DIAMANTE MULLEN, YESENIA ([id number]), newspaper photo editor JULIAN DING ([id number]) on 04/02/2019 1:45:32 PM Referred By: CHIKI Confirmed By:YESENIA BOBBY MD
[2019-04-02] MEDS: Famotidine 20 MG TAB PO SCH (20:23)
[2019-04-03] MEDS: methylPREDNISolone Sod Succ 40 MG VIAL IVP SCH ×2 (03:08→07:38)
[2019-04-03 04:11] LABS: BUN (Urea Nitrogen) 15 mg/dL (9.8-20.1); Calc. Creatinine Clearance 158 mL/min (70-130); Estimated GFR-MDRD Greater than 90; Glucose 134 mg/dL (70-105)
[2019-04-03 04:21] LABS: Anion Gap 14 mmol/L (10-20); Carbon Dioxide 36 mmol/L (22-29); Chloride 96 mmol/L (98-107); Potassium 4.5 mmol/L (3.5-5.1); Sodium 141 mmol/L (136-145)
[2019-04-03] MEDS: glipiZIDE 5 MG TAB PO SCH (07:39)
[2019-04-03] MEDS: Famotidine 20 MG TAB PO SCH ×2 (07:39→20:16)
[2019-04-03] MEDS: Enoxaparin Sodium 40 MG/0.4 ML SYRINGE SC SCH (07:39)
[2019-04-03] MEDS: Montelukast Sodium 10 mg Tablet PO SCH (07:39)
--- NOTE | 2019-04-03 09:29 | PDOC.PN ---
- Subjective Encounter Start Date: 04/03/19 (f/u DM) Encounter Start Time: 09:24 Subjective: Pt's reports that she is doing better - eating, working with -: therapy. Pt currently resting. - Objective Resuscitation Status - Order Detail: 03/26/19 18:02 Resuscitation Status Routine Resuscitation Status: FULL: Full Resuscitation Vital Signs & Weight: Vital Signs (12 hours) Temp Pulse Resp Pulse Ox 04/03/19 08:00 98.4 F 04/03/19 07:55 100 04/03/19 07:10 79 21 H 04/03/19 04:00 98.4 F 04/03/19 03:27 98 04/03/19 03:00 98.1 F 04/03/19 01:49 95 04/03/19 00:00 98 F 100 04/02/19 22:47 98 04/02/19 22:27 95 Weight Admit Weight 187 lb Weight 186 lb 8.177 oz Most Recent Monitor Data Heart Rate from ECG 83 NIBP 122/61 NIBP BP-Mean 81 Respiration from ECG 24 SpO2 100 I&O: 04/02/19 04/03/19 04/04/19 06:59 06:59 06:59 Intake Total 79.3 635 Output Total 2024 1900 300 Balance -1945.7 -859 -300 Result Diagrams: 04/02/19 04:30 04/03/19 03:15 Additional Labs: Accuchecks 04/02/19 04/02/19 04/02/19 20:35 16:30 11:44 POC Glucose 139 H 117 H 116 H EKG Reviewed by me: Yes (tele - sinus, brief episode of narrow complex tachy - resolved) Phys Exam - Physical Examination Constitutional: NAD Respiratory: no wheezing, no rales, no rhonchi has cpap on Cardiovascular: RRR, no significant murmur Gastrointestinal: soft, non-tender, no distention, positive bowel sounds Musculoskeletal: no edema, pulses present Neurological: non-focal Dx/Plan (1) COPD exacerbation Code(s): J44.1 - CHRONIC OBSTRUCTIVE PULMONARY DISEASE W (ACUTE) EXACERBATION Status: Acute (2) Acute respiratory failure with hypoxia and hypercapnia Code(s): J96.01 - ACUTE RESPIRATORY FAILURE WITH HYPOXIA; J96.02 - ACUTE RESPIRATORY FAILURE WITH HYPERCAPNIA Status: Acute (3) Dyslipidemia Code(s): E78.5 - HYPERLIPIDEMIA, UNSPECIFIED Status: Chronic (4) Diabetes mellitus Code(s): E11.9 - TYPE 2 DIABETES MELLITUS WITHOUT COMPLICATIONS Status: Chronic Qualifiers: Diabetes mellitus type: type 2 (5) Hypertension Code(s): I10 - ESSENTIAL (PRIMARY) HYPERTENSION Status: Chronic Qualifiers: Hypertension type: essential hypertension Qualified Code(s): I10 - Essential (primary) hypertension - Plan * * Appreciate Pulmonology care - extubated 2 days ago, transfer to medical floor * DM * Resume glipizide at home dosing yesterday * continue SSI * Hold bp meds - bp has been normal, resume as needed * Hold home trazodone. Continue prn Xanax - she reports taking this at home HS * * physical therapy * * dvt prophy - lovenox * gi prophy - famotidine due to high dose steroids * code status full * * pt remains at high risk in current condition.
--- NOTE | 2019-04-03 09:35 | PRG ---
DATE OF SERVICE: 04/03/2019 SUBJECTIVE: She is less confused today, but still remains flighty at times. Her is now in the room. OBJECTIVE: VITAL SIGNS: On exam, temperature is 98.4, pulse 79, blood pressure 130/61, and O2 saturation 100%. Intake for 24 hours 635 and output 1494. HEENT: Unremarkable. NECK: No JVD. LUNGS: Clear without wheezing. CARDIAC: S1 and S2. Regular. ABDOMEN: Soft. EXTREMITIES: No edema. LABORATORY DATA: Sodium 141, potassium 4.5, chloride 96, CO2 of 36, BUN 15, creatinine 0.5, and glucose 134. White blood cell count 17, hematocrit 47, and platelet count 254. ASSESSMENT: 1. Chronic obstructive pulmonary disease with exacerbation. 2. Status post acute respiratory failure, requiring mechanical ventilation. 3. Some degree of delirium. PLAN: 1. Transfer to medical floor with sitter. 2. Stay on p.o. steroids. 3. Antibiotics stopped yesterday. 4. Increase activity as tolerated. 5. CPAP at night for DEBORA. Job ID: [id number]
[2019-04-03] MEDS ORDERED: predniSONE 20 MG TAB PO SCH (10:15)
[2019-04-03] MEDS: ALPRAZolam 0.25 MG TAB PO PRN (11:32)
[2019-04-04] MEDS: ALPRAZolam 0.25 MG TAB PO PRN (02:51)
[2019-04-04 06:24] LABS: Anion Gap 13 mmol/L (10-20); BUN (Urea Nitrogen) 13 mg/dL (9.8-20.1); Calc. Creatinine Clearance 164 mL/min (70-130); Calcium 8.9 mg/dL (7.8-10.44); Carbon Dioxide 31 mmol/L (22-29); Chloride 99 mmol/L (98-107); Estimated GFR-MDRD Greater than 90; Glucose 87 mg/dL (70-105); Potassium 4.2 mmol/L (3.5-5.1); Sodium 139 mmol/L (136-145)
[2019-04-04 06:40] LABS: Hemoglobin 13.8 g/dL (12.0-16.0); Lymphocytes 26 % (21-51); MDiff Complete? YES; Mean Corpuscular HGB CONC 31.1 g/dL (32.0-36.0); Mean Corpuscular Volume 89.9 fL (78.0-98.0); Mean Platelet Volume 8.1 fL (7.4-10.4); Monocytes 4 % (0-10); Neutrophil 63 % (42-75); Platelet Count 194 thou/uL (130-400); Platelet Morphology Comment Appears Adequate; RBC Distribution Width 13.1 % (11.5-14.5); Reactive Lymphocytes 7 % (0-10); Red Blood Cell (RBC) Count 4.94 mill/uL (4.20-5.40); White Blood Cell (WBC) Count 14.1 thou/uL (4.8-10.8)
[2019-04-04 07:39] VITALS: TEMP 98.5
[2019-04-04 07:43] VITALS: BP 113/74
[2019-04-04] MEDS: Montelukast Sodium 10 mg Tablet PO SCH (07:59)
[2019-04-04] MEDS: glipiZIDE 5 MG TAB PO SCH (07:59)
[2019-04-04] MEDS: Famotidine 20 MG TAB PO SCH (07:59)
[2019-04-04] MEDS: Enoxaparin Sodium 40 MG/0.4 ML SYRINGE SC SCH (08:00)
--- NOTE | 2019-04-04 08:42 | PDOC.PN ---
- Subjective Encounter Start Date: 04/04/19 Encounter Start Time: 09:40 Subjective: Patient feeling much better. Eager to go home. Has home O2 already. - Objective Resuscitation Status - Order Detail: 03/26/19 18:02 Resuscitation Status Routine Resuscitation Status: FULL: Full Resuscitation MAR Reviewed: Yes Vital Signs & Weight: Vital Signs (12 hours) Temp Pulse Resp BP Pulse Ox 04/04/19 07:42 98.5 F 79 18 113/74 04/04/19 07:38 98.5 F 82 18 120/69 96 04/04/19 07:03 88 18 100 04/04/19 04:42 97.9 F 77 18 118/70 100 04/04/19 02:28 75 16 99 04/03/19 23:58 98.2 F 77 20 115/72 100 04/03/19 23:40 77 16 96 04/03/19 23:20 90 16 96 Weight Admit Weight 187 lb Weight 186 lb 8.177 oz Most Recent Monitor Data Heart Rate from ECG 83 NIBP 122/61 NIBP BP-Mean 81 Respiration from ECG 24 SpO2 100 I&O: 04/03/19 04/04/19 04/05/19 06:59 06:59 06:59 Intake Total 635 120 Output Total 1494 300 Balance -859 -180 Result Diagrams: 04/04/19 05:38 04/04/19 05:38 Additional Labs: Accuchecks 04/04/19 04/03/19 04/03/19 04:10 19:25 16:08 POC Glucose 109 170 H 172 H 04/03/19 11:50 POC Glucose 110 Phys Exam - Physical Examination Constitutional: NAD HEENT: moist MMs Respiratory: no rales, no rhonchi tight breath sounds with scattered exp wheezing, improved, no resp distress Cardiovascular: RRR Gastrointestinal: soft, positive bowel sounds Neurological: non-focal, moves all 4 limbs Psychiatric: A&O x 3 Deviation from normal: a bit anxious Dx/Plan (1) COPD exacerbation Code(s): J44.1 - CHRONIC OBSTRUCTIVE PULMONARY DISEASE W (ACUTE) EXACERBATION Status: Acute Comment: extubated, off abx, weaning steroids (2) Acute respiratory failure with hypoxia and hypercapnia Code(s): J96.01 - ACUTE RESPIRATORY FAILURE WITH HYPOXIA; J96.02 - ACUTE RESPIRATORY FAILURE WITH HYPERCAPNIA Status: Acute (3) HLD (hyperlipidemia) Code(s): E78.5 - HYPERLIPIDEMIA, UNSPECIFIED Status: Chronic Qualifiers: Hyperlipidemia type: unspecified Qualified Code(s): E78.5 - Hyperlipidemia , unspecified (4) Hypertension Code(s): I10 - ESSENTIAL (PRIMARY) HYPERTENSION Status: Chronic Qualifiers: Hypertension type: essential hypertension Qualified Code(s): I10 - Essential (primary) hypertension (5) Diabetes mellitus type 2 in obese Code(s): E11.69 - TYPE 2 DIABETES MELLITUS WITH OTHER SPECIFIED COMPLICATION; E66.9 - OBESITY, UNSPECIFIED Status: Chronic Comment: decently controlled (6) Positive urine drug screen Code(s): R82.5 - ELEVATED URINE LEVELS OF DRUG/MEDS/BIOL SUBST Status: Acute Comment: Amphetamine/methamphetamine (7) Acute metabolic encephalopathy Code(s): G93.41 - METABOLIC ENCEPHALOPATHY Status: Acute - Plan cont current plan of care, PT/OT, respiratory therapy cleared for d/c by Dr. Prasad, will taper steroids over the next 2 weeks * . - Discharge Day Encounter end time: 09:55
[2019-04-04] MEDS ORDERED: predniSONE 20 MG TAB PO SCH (09:00)
--- NOTE | 2019-04-04 09:33 | PRG ---
DATE OF SERVICE: 04/04/2019 SUBJECTIVE: The patient feels good and wants to go home. OBJECTIVE: VITAL SIGNS: On exam, temperature 98.5, pulse 79, respirations 18, O2 saturation 96%, and blood pressure 113/74. HEENT: Unremarkable. NECK: No JVD. LUNGS: No wheezing. CARDIAC: S1 and S2, regular. ABDOMEN: Soft. EXTREMITIES: No edema. LABORATORY DATA: White blood cell count 14, hematocrit 44, and platelet count 194. Sodium 139, potassium 4.2, BUN 13, creatinine 0.5, and glucose 87. ASSESSMENT: 1. Chronic obstructive pulmonary disease with exacerbation. 2. Status post acute respiratory failure requiring mechanical ventilation. 3. Resolved delirium. 4. Obstructive sleep apnea. PLAN: I think she is stable for hospital discharge. I will taper her steroids over a couple of weeks. She has been told not to smoke. I have confronted her on several occasions about the positive drug test for methamphetamines when she came in, but she denies using these. I do not think she is being entirely truthful with me. Her hospital followup will be with her previous physicians. Job ID: [id number]
--- NOTE | 2019-04-04 23:56 | DIS ---
DATE OF ADMISSION: 03/26/2019 DATE OF DISCHARGE: 04/04/2019 PRIMARY CARE PHYSICIAN: REASON FOR ADMISSION: Acute respiratory failure requiring intubation. DISCHARGE DIAGNOSES: 1. Chronic obstructive pulmonary disease exacerbation, improved. 2. Acute respiratory failure with hypoxia, hypercapnia, resolved. 3. Hyperlipidemia. 4. Hypertension. 5. Diabetes mellitus type 2. 6. Positive drug screen for amphetamines. 7. Acute metabolic encephalopathy, improved. PROCEDURES: 1. CT of the brain showing no acute intracranial abnormalities. 2. Echocardiogram showing ejection fraction of 50% to 55%, and a small pericardial effusion. CONSULTATIONS: Pulmonology, Dr. Howard for Dr. Prasad. SUMMARY OF HOSPITAL COURSE: This is a 58-year-old white female with a history of end-stage COPD, admitted with multiple previous episodes of respiratory failure requiring intubation and even a previous tracheostomy. The patient came in with respiratory failure. She was intubated and managed by Dr. Howard and then Dr. Prasad in the ICU. The patient was given antibiotics, steroids, and nebulizer treatments. This slowly improved over the course of her hospitalization. She was then slowly extubated and slowly improved back to about her baseline today. She is eager to go home. She did have some mild altered mental status in the hospital that slowly improved, possibly secondary to the high-dose steroids worsening some of her anxiety. The patient also was noted to have a positive urine drug screen for amphetamines and methamphetamines. She denied use of these substances. On the day of discharge, the patient was cleared for discharge by Dr. Prasad with a two-week steroid taper. She does have oxygen already at home. DISCHARGE MANAGEMENT: Discharged home. FOLLOWUP: Follow up with primary care physician in 7 days. ACTIVITY: As tolerated. DIET: Diabetic diet. DISCHARGE MEDICATIONS: 1. Singulair 10 mg daily, 30 tablets dispensed. 2. Prednisone 10 mg dose pack 3 tabs daily for 4 days, then 2 tabs daily for 4 days, then one tablet daily for 4 days and half tab daily for 4 days, 26 tabs dispensed. 3. Continue amlodipine 10 mg daily. 4. Clonazepam 1 mg twice a day as needed. 5. DuoNeb as needed. 6. Trazodone 50 mg at night. Job ID: [id number]
== END 2019-04-04 10:27 | disposition home or self-care (01) | DRG 207 ==
LOC: ERS 13:16 → CCU 16:23 → T4-B 04-03 09:57
PROVIDERS: ADMIT Internal Medicine; ATTEND Internal Medicine
PROC: 5A1955Z Respiratory Ventilation, Greater than 96 Consecutive Hours (ICD-10-PCS; principal; 2019-03-26)
PROC: 0BH18EZ Insertion of Endotracheal Airway into Trachea, Via Natural or Artificial Opening Endoscopic (ICD-10-PCS; 2019-03-26)
DX: J96.01 Acute respiratory failure with hypoxia (principal); G93.41 Metabolic encephalopathy; J44.1 Chronic obstructive pulmonary disease with (acute) exacerbation; J96.02 Acute respiratory failure with hypercapnia; E78.5 Hyperlipidemia, unspecified; E66.9 Obesity, unspecified; I10 Essential (primary) hypertension; E11.9 Type 2 diabetes mellitus without complications; E83.39 Other disorders of phosphorus metabolism; R82.5 Elevated urine levels of drugs, medicaments and biological substances; Z87.891 Personal history of nicotine dependence; Z90.710 Acquired absence of both cervix and uterus; Z79.82 Long term (current) use of aspirin; Z68.31 Body mass index [BMI] 31.0-31.9, adult
CPT/HCPCS: 36415; 36416; 70450; 71045; 80048; 80306; 80307; 82140; 82805; 82947; 83690; 83735; 83880; 84100; 84443; 85007; 85025; 85027; 93005; 93306; 94002; 94003; 94640; 94644; 94660; 94760; J0696; J1100; J1650; J1815; J1940; J1956; J2060; J2250; J2270; J2704; J2920; J2930; J3010; J3490; J7512; J7620; S0028

== ENCOUNTER 2019-11-09 06:20 | Inpatient (IN) | payer MEDICARE ==
[2019-11-09 07:38] LABS: Troponin I Less than 0.010 ng/mL (< 0.028)
[2019-11-09 08:08] LABS: Actual Bicarbonate (HCO3a) 55.8 mEq/L (22-28); Analyzer IN Cardio ER; Base Excess (BEa) 21.6 mEq/L (-2.0 to +3.0); CO2 Tension 130.4 mmHg (35.0-45.0); Calcium, Ionized 1.19 mmol/L (1.12-1.30); Carboxyhemoglobin (COHb) 1.3 gm% (0.0-3.0); Hemoglobin (Hb) 13.9 g/dL (12.0-16.0); Potassium - ABG Lab 4.34 mmol/L (3.70-5.30); pH, Arterial 7.25 (7.35-7.45)
[2019-11-09 08:09] LABS: O2 Tension (PaO2) 50.3 mmHg (80.0-100.0); Puncture Site RR
[2019-11-09 08:12] VITALS: BMI 32.1
[2019-11-09] MEDS ORDERED: clonazePAM 1 MG TAB PO PRN (08:27)
--- NOTE | 2019-11-09 08:32 | CON ---
DATE OF CONSULTATION: 11/09/2019 CONSULTING PHYSICIAN: Hospitalist Group. REASON FOR CONSULTATION: Acute respiratory failure related to COPD. HISTORY OF PRESENT ILLNESS: This patient was apparently taken to [facility] last night with increasing shortness of breath. She was subsequently transported over here for further therapy. She has been placed on BiPAP. She tells me that her breathing has been bad for several days at home and she has been using her CPAP at home. She has also been smoking cigarettes intermittently at home. PAST MEDICAL HISTORY: 1. Severe COPD with multiple episodes of respiratory failure in the past. 2. Hyperlipidemia. 3. Hypertension. 4. Obesity. PAST SURGICAL HISTORY: Transabdominal hysterectomy. ALLERGIES: NONE LISTED. MEDICATIONS: Prior to admission; 1. Cyclobenzaprine 10 mg, dosing interval unknown. 2. Aspirin 81 mg daily. 3. Alprazolam 0.25 mg t.i.d. as needed. 4. Hydrochlorothiazide 25 mg daily. 5. Trazodone 50 mg 1 to 2 daily. 6. Glipizide 5 mg daily. SOCIAL HISTORY: Still smoking some. Does not consume alcohol or use illicit drugs. FAMILY MEDICAL HISTORY: Not known. REVIEW OF SYSTEMS: Cannot be obtained as she is currently confused. PHYSICAL EXAMINATION: VITAL SIGNS: Heart rate 100, blood pressure 138/73, respiratory rate 18, and O2 saturation 95%. GENERAL: The patient awakens fairly easily. She does communicate without much difficulty, although she seems to be confabulating many of her answers. HEENT: Pupils are reactive. Sclerae are anicteric. Oropharynx clear. NECK: No adenopathy or JVD. LUNGS: She has diminished breath sounds throughout. Wheezing is not prominent. CARDIOVASCULAR: S1 and S2. Regular without audible murmur. ABDOMEN: Soft and nontender to palpation. EXTREMITIES: No clubbing, cyanosis, or edema. LABORATORY DATA: ABG; pH of 7.25, pCO2 of 130, and pO2 of 50. I am not sure what kind of oxygenation she was on when that was obtained. White blood cell count 9.4, hematocrit 49.4, and platelet count 165. Sodium 147, potassium 4.2, chloride 90, CO2 of 44, BUN 8, creatinine 0.6, and glucose 109. ASSESSMENT: 1. Chronic obstructive pulmonary disease exacerbation. 2. Acute on chronic hypercapnic and hypoxic respiratory failure. 3. Tobacco abuse. PLAN: The patient's elevated bicarbonate indicates that her CO2 is grossly elevated at baseline and we are probably not too far off her baseline. She seems to be ventilating well with BiPAP at this time. We will treat with steroids, breathing treatments, and the BiPAP. We will monitor in the CCU for deterioration in case she needs intubation. Job ID: [id number]
[2019-11-09] MEDS: Sodium Chloride 0.9% 1,000 ML IV SCH (09:24)
[2019-11-09] MEDS ORDERED: HumaLOG 300 UNITS/3 ML VIAL SC PRN (09:40)
[2019-11-09] MEDS ORDERED: Dextrose 5% in Water 1,000 ML IV PRN (09:40)
[2019-11-09] MEDS ORDERED: Dextrose 50% Abboject 50 ML SYRINGE SLOW IVP PRN (09:40)
[2019-11-09] MEDS: Pantoprazole 40 MG VIAL IVP SCH (10:21)
[2019-11-09] MEDS: Montelukast Sodium 10 mg Tablet PO SCH (10:21)
[2019-11-09] MEDS: Enoxaparin Sodium 40 MG/0.4 ML SYRINGE SC SCH (10:21)
[2019-11-09] MEDS: Amlodipine 10 MG TAB PO SCH (10:21)
[2019-11-09 10:30] LABS: Troponin I Less than 0.010 ng/mL (< 0.028)
--- NOTE | 2019-11-09 10:57 | HP ---
PRIMARY CARE PHYSICIAN: Dr. Reardon. REASON FOR ADMISSION: Acute respiratory failure with hypoxia and hypercarbia, COPD exacerbation. HISTORY OF PRESENTING ILLNESS: The patient gives history of shortness of breath from last 2 weeks, which has been gradually building up on her. She has cough with expectoration of yellowish green sputum, which does not come all the time, mostly it is dry in nature. The patient admits to smoking 1 to 2 cigarettes a day. She says that her and son smoke in the house and she feels like smoking too. No complaints of fever, chest pain, or palpitation. She usually uses nebulizer once a day at home. She uses CPAP at night. She has home oxygen, but uses it on a p.r.n. basis. PAST MEDICAL AND SURGICAL HISTORY: History of chronic COPD, prior echo done in March of 2019 showed ejection fraction of 50% to 55%. She was previously intubated for COPD exacerbation and respiratory failure, hypertension, dyslipidemia, hysterectomy, prior trach and PEG with removal. CURRENT MEDICATIONS: The patient is on; 1. Klonopin 1 mg twice daily p.r.n. for anxiety. 2. Trazodone 50 mg p.o. at bedtime. 3. Norvasc 10 mg daily. 4. DuoNeb q.6 hourly, but the patient uses 1 to 2 times. 5. Singulair 10 mg daily. ALLERGIES: NO KNOWN DRUG ALLERGIES. PERSONAL HISTORY: Smokes 1 to 2 cigarettes a day. Denies alcohol or drug use. She lives with her . FAMILY HISTORY: Both parents are alive. Father is 80 years old and does [employer] bike marathons per the patient. There is history of diabetes in the family. CODE STATUS: Full. Power of pm head cook is her . The patient ambulates with a rolling walker in the house. REVIEW OF SYSTEMS: CONSTITUTIONAL: Negative for weight loss or gain, ability to conduct usual activities. SKIN: Negative for rash, itching. EYES: Negative for double vision, pain. ENT/MOUTH: Negative for nose bleeding, neck stiffness, pain, tenderness. CARDIOVASCULAR: Negative for palpitations, dyspnea on exertion, orthopnea. RESPIRATORY: Negative for shortness of breath, wheezing, cough, hemoptysis, fever or night sweats. GASTROINTESTINAL: Negative for poor appetite, abdominal pain, heartburn, nausea , vomiting, constipation, or diarrhea. GENITOURINARY: Negative for urgency, frequency, dysuria, nocturia. MUSCULOSKELETAL: Negative for pain, swelling. NEUROLOGIC/PSYCHIATRIC: Negative for anxiety, depression. ALLERGY/IMMUNOLOGIC: Negative for skin rash, bleeding tendency. PHYSICAL EXAMINATION: GENERAL: The patient is a 59-year-old female, who is currently not in any acute distress and is tolerating BiPAP. VITAL SIGNS: Blood pressure 142/76, pulse 98 per minute, respiratory rate is 24 per minute, saturating 97% on BiPAP, temperature 98.2 degrees Fahrenheit. NECK: Supple. No elevated JVD. HEENT: Eyes; extraocular muscles are intact. Pupils reacting to light. Oral cavity, mucous membranes are dry. No exudates or congestion. CARDIOVASCULAR: S1 and S2 heard. Tachycardic. No murmur. RESPIRATORY: Air entry 1+ bilateral. Scattered wheezes plus bilateral rhonchi plus bilateral. ABDOMEN: Soft. Bowel sounds heard. No tenderness, rigidity, or guarding. EXTREMITIES: There is mild peripheral edema in the thighs. No calf tenderness. VASCULAR: Peripheral pulses 1+ bilateral. No ischemic ulcerations or gangrene. CENTRAL NERVOUS SYSTEM: No gross focal deficits noted. The patient is alert and oriented well. PSYCHIATRIC: The patient's mood is euthymic. No hallucinations or delusions. LABORATORY DATA: White count of 9, hemoglobin and hematocrit 13 and 49, platelet count is 165 with 75% neutrophils, MCV is 96. Initial venous blood gas done showed a pH of 7.13, pCO2 of 144. Arterial blood gas done at 6:30 a.m. in the morning showed a pH of 7.25, pCO2 of 130, PO2 of 50. Serum bicarb is 44. Sodium is 143 , BUN 8, creatinine 0.6, serum glucose 154. Troponin x2 negative. Liver enzymes within normal limits. BNP 70. Albumin 4.5. IMAGING STUDIES: 1. Chest x-ray done shows no acute intrathoracic disease. 2. EKG showed sinus tach. CLINICAL IMPRESSION AND PLAN: The patient will be admitted to ICU for acute respiratory failure with hypoxia and hypercarbia, chronic obstructive pulmonary disease exacerbation. She has been evaluated by Dr. Prasad as well in ICU. She is on Solu-Medrol 60 mg IV q.6 hourly, DuoNeb q.4 hourly, tessalon pearls, Mucinex , and Protonix 40 mg IV daily. We will continue Norvasc as before, Pulmicort nebulizer twice daily, Klonopin p.r.n. for anxiety, Singulair 10 mg daily, and trazodone at bedtime p.r.n. for insomnia. The patient has had prior history of intubation for severe chronic obstructive pulmonary disease. She will be closely monitored in ICU, if needed, will be intubated. Code status is full. Job ID: [id number] MTDD
[2019-11-09] MEDS: methylPREDNISolone Sod Succ 40 MG VIAL IVP SCH ×2 (12:17→19:23)
[2019-11-09] MEDS: HumaLOG 300 UNITS/3 ML VIAL SC PRN (12:20)
[2019-11-09] MEDS: Benzonatate 100 MG CAP PO SCH ×2 (16:32→21:24)
[2019-11-09] MEDS: Budesonide 0.5 MG/2 ML NEB INH SCH (18:47)
[2019-11-09] MEDS: Bacteriostatic Water 30 ML VIAL FS PRN (19:24)
[2019-11-09] MEDS: guaiFENesin ER 600 MG TAB PO SCH (21:24)
[2019-11-09] MEDS: traZODone HCl 50 MG TAB PO SCH (21:24)
[2019-11-10] MEDS: Bacteriostatic Water 30 ML VIAL FS PRN ×2 (00:22→06:29)
[2019-11-10] MEDS: methylPREDNISolone Sod Succ 40 MG VIAL IVP SCH ×3 (00:22→11:34)
[2019-11-10] MEDS: Sodium Chloride 0.9% 1,000 ML IV SCH ×2 (00:23→11:34)
[2019-11-10 03:32] LABS: #Lymphocytes 0.7 thou/uL (1.20-3.40); #Monocytes 0.2 thou/uL (0.11-0.59); #Neutrophils 4.2 thou/uL (1.40-6.50); %Basophils 0.1 % (0.0-1.0); %Eosinophils 0.1 % (0.0-10.0); %Lymphocytes 13.3 % (21.0-51.0); %Neutrophils 83.5 % (42.0-75.0); Mean Corpuscular HGB CONC 31.9 g/dL (32.0-36.0); Mean Corpuscular Hemoglobin 28.5 pg (27.0-31.0); Mean Corpuscular Volume 89.1 fL (78.0-98.0); Mean Platelet Volume 7.9 fL (7.4-10.4); Platelet Count 130 thou/uL (130-400); RBC Distribution Width 11.2 % (11.5-14.5); Red Blood Cell (RBC) Count 4.22 mill/uL (4.20-5.40)
[2019-11-10 03:54] LABS: Anion Gap 13 mmol/L (10-20); BUN (Urea Nitrogen) 15 mg/dL (9.8-20.1); Calc. Creatinine Clearance 143 mL/min (70-130); Calcium 9.2 mg/dL (7.8-10.44); Carbon Dioxide 35 mmol/L (22-29); Chloride 96 mmol/L (98-107); Estimated GFR-MDRD Greater than 90; Glucose 154 mg/dL (70-105); Potassium 4.1 mmol/L (3.5-5.1); Sodium 140 mmol/L (136-145)
[2019-11-10] MEDS: Budesonide 0.5 MG/2 ML NEB INH SCH ×2 (06:22→18:31)
[2019-11-10 07:01] LABS: Actual Bicarbonate (HCO3a) 43.8 mEq/L (22-28); Base Excess (BEa) 15.9 mEq/L (-2.0 to +3.0); Carboxyhemoglobin (COHb) 1.3 gm% (0.0-3.0); Hemoglobin (Hb) 11.7 g/dL (12.0-16.0); Potassium - ABG Lab 3.93 mmol/L (3.70-5.30)
[2019-11-10 07:04] LABS: CO2 Tension 71.8 mmHg (35.0-45.0)
[2019-11-10 07:06] LABS: Puncture Site LR
[2019-11-10] MEDS ORDERED: FLU VACC QS2019-20(6MOS UP)/PF 60 MCG/0.5 ML SYRINGE IM ONE (09:00)
[2019-11-10] MEDS: Benzonatate 100 MG CAP PO SCH ×3 (09:11→20:25)
[2019-11-10] MEDS: guaiFENesin ER 600 MG TAB PO SCH ×2 (09:12→20:25)
[2019-11-10] MEDS: Amlodipine 10 MG TAB PO SCH (09:12)
[2019-11-10] MEDS: Montelukast Sodium 10 mg Tablet PO SCH (09:13)
[2019-11-10] MEDS: Enoxaparin Sodium 40 MG/0.4 ML SYRINGE SC SCH (09:15)
[2019-11-10] MEDS: Pantoprazole 40 MG VIAL IVP SCH (09:15)
[2019-11-10] MEDS: HumaLOG 300 UNITS/3 ML VIAL SC PRN (11:21)
--- NOTE | 2019-11-10 13:19 | PDOC.HOSPP ---
- Subjective Encounter Date: 11/10/19 Encounter Time: 08:20 Subjective: is off bipap, on nasal canula sitting in chair feels better, at bedside - Objective Vital Signs & Weight: Vital Signs (12 hours) Temp Pulse Resp Pulse Ox 11/10/19 12:38 86 20 100 11/10/19 12:00 97.9 F 11/10/19 11:00 98.2 F 11/10/19 10:37 83 11/10/19 10:35 86 20 100 11/10/19 09:12 80 11/10/19 08:00 96 11/10/19 07:00 98.1 F 11/10/19 06:23 80 11/10/19 06:21 87 24 H 99 11/10/19 04:00 98.3 F 11/10/19 03:15 77 19 99 Weight Admit Weight 170 lb Weight 170 lb 3.15 oz Most Recent Monitor Data Heart Rate from ECG 92 NIBP 123/80 NIBP BP-Mean 94 Respiration from ECG 22 SpO2 100 I&O: 11/09/19 11/10/19 11/11/19 06:59 06:59 06:59 Intake Total 1827 460 Output Total 875 1400 Balance 952 -940 Result Diagrams: 11/10/19 03:19 11/10/19 03:19 Additional Labs: Accuchecks 11/10/19 11/09/19 10:47 16:31 POC Glucose 208 H 121 H Hospitalist ROS - Medication Medications: Active Medications Generic Name Dose Route Start Last Admin Trade Name Freq PRN Reason Stop Dose Admin Albuterol/Ipratropium 3 ml 11/09/19 10:00 11/10/19 12:38 Duoneb NEB 3 ml [id number] HUGH Administration Amlodipine Besylate 10 mg 11/09/19 09:00 11/10/19 09:12 Norvasc PO 10 mg DAILY HUGH Administration Benzonatate 100 mg 11/09/19 15:00 11/10/19 09:11 Tessalon PO 100 mg TID HUGH Administration Budesonide 0.5 mg 11/09/19 18:30 11/10/19 06:22 Pulmicort Neb Solution INH 0.5 mg BID-RT HUGH Administration Enoxaparin Sodium 40 mg 11/09/19 09:00 11/10/19 09:15 Lovenox SC 40 mg 0900 HUGH Administration Guaifenesin 600 mg 11/09/19 21:00 11/10/19 09:12 Mucinex PO 600 mg Q12HR HUGH Administration Sodium Chloride 1,000 mls @ 70 mls/hr 11/09/19 08:15 11/10/19 11:34 Normal Saline 0.9% IV Not Given .[id number] HUGH Insulin Human Lispro 0 units 11/09/19 09:40 11/10/19 11:21 Humalog SC 6 unit .AGGRESSIVE SLIDING PRN Administration Aggressive Correctional Scale Methylprednisolone Sodium Succinate 60 mg 11/09/19 12:00 11/10/19 11:34 Solu-Medrol IVP 60 mg Q6HR HUGH Administration Montelukast Sodium 10 mg 11/09/19 09:00 11/10/19 09:13 Singulair PO 10 mg DAILY HUGH Administration Sodium Chloride 10 ml 11/09/19 21:00 11/10/19 09:15 Flush - Normal Saline IVF Not Given Q12HR HUGH Sterile Water 1 ml 11/09/19 18:52 11/10/19 06:29 Bacteriostatic Water FS 1 ml PRN PRN Administration RECONSTITUTION Trazodone HCl 50 mg 11/09/19 21:00 11/09/19 21:24 Desyrel PO 50 mg HS HUGH Administration - Exam General Appearance: awake alert Eye: PERRL, anicteric sclera ENT: no oropharyngeal lesions, moist mucosa Neck: supple, no JVD Heart: RRR, no murmur Respiratory: no wheezes, no rales Gastrointestinal: soft, non-tender, non-distended, normal bowel sounds Extremities: no cyanosis, no edema Neurological: cranial nerve grossly intact, no focal deficits Psychiatric: normal affect, A&O x 3 Hosp A/P (1) Acute respiratory failure with hypoxia and hypercapnia Code(s): J96.01 - ACUTE RESPIRATORY FAILURE WITH HYPOXIA; J96.02 - ACUTE RESPIRATORY FAILURE WITH HYPERCAPNIA Status: Acute (2) COPD exacerbation Code(s): J44.1 - CHRONIC OBSTRUCTIVE PULMONARY DISEASE W (ACUTE) EXACERBATION Status: Acute (3) Diabetes mellitus Code(s): E11.9 - TYPE 2 DIABETES MELLITUS WITHOUT COMPLICATIONS Status: Chronic Qualifiers: Diabetes mellitus type: type 2 Diabetes mellitus loftsman insulin use: without loftsman use (4) Dyslipidemia Code(s): E78.5 - HYPERLIPIDEMIA, UNSPECIFIED Status: Chronic (5) Hypertension Code(s): I10 - ESSENTIAL (PRIMARY) HYPERTENSION Status: Chronic Qualifiers: (6) Obesity Code(s): E66.9 - OBESITY, UNSPECIFIED Status: Chronic Qualifiers: Obesity classification: adult class 1 (BMI 30 - 34.9) Body mass index: BMI 32.0-32.9 - Plan hemostable is on steroids, nebs, pulmicort norvasc, humalog coverage may scale down steroids if ok with pulm may tx to med Her bipap facemask holding elastic is not good at home and someone from the company is coming to fix it tomorrow per patient to ambulate with oxygen as tolerated
[2019-11-10] MEDS ORDERED: predniSONE 20 MG TAB PO SCH (13:30)
--- NOTE | 2019-11-10 15:32 | PRG ---
DATE OF SERVICE: 11/10/2019 Ms. Gonzalez was noninvasively ventilated when I walked into the room. I started talking to her and examining her chest and she took off her BiPAP mask and started screaming at me and told me to get out of the room. She informed me that she had filed a complaint against me stating that the last time I had intubated her, I brought all the medical students into the room and was standing around telling jokes while I was attending to her. I asked her to step outside. I remember her being in the room and I actually remember what room she was in when I intubated her. He stepped outside the door. I have explained to him that is not what happened and he informed me that he recalled that was not what did happen. In any event, she has declined to let me care for her. This has also happened the last time I saw her in the hospital. I have suggested that he might want to take her to [facility] and [place] in the future if she is being transferred from an outlying hospital instead of here since there is one in four chance that she will run into ma on the weekend. No further examination was performed. I was also informed by the charge nurse that she has told her not to leave because she is convinced that I am going to do something to kill her. Job ID: [id number]
[2019-11-10] MEDS: traZODone HCl 50 MG TAB PO SCH (20:26)
[2019-11-11 06:49] LABS: #Lymphocytes 2.4 thou/uL (1.20-3.40); #Monocytes 0.8 thou/uL (0.11-0.59); #Neutrophils 4.4 thou/uL (1.40-6.50); %Basophils 0.2 % (0.0-1.0); %Eosinophils 0.2 % (0.0-10.0); %Lymphocytes 31.2 % (21.0-51.0); %Monocytes 10.6 % (0.0-10.0); %Neutrophils 57.8 % (42.0-75.0); Hemoglobin 11.5 g/dL (12.0-16.0); Mean Corpuscular HGB CONC 32.6 g/dL (32.0-36.0); Mean Corpuscular Hemoglobin 28.8 pg (27.0-31.0); Mean Corpuscular Volume 88.3 fL (78.0-98.0); Mean Platelet Volume 8.3 fL (7.4-10.4); Platelet Count 130 thou/uL (130-400); RBC Distribution Width 11.5 % (11.5-14.5); Red Blood Cell (RBC) Count 3.99 mill/uL (4.20-5.40); White Blood Cell (WBC) Count 7.5 thou/uL (4.8-10.8)
[2019-11-11 07:10] LABS: BUN (Urea Nitrogen) 15 mg/dL (9.8-20.1); Calc. Creatinine Clearance 158 mL/min (70-130); Calcium 8.8 mg/dL (7.8-10.44); Estimated GFR-MDRD Greater than 90; Glucose 93 mg/dL (70-105)
[2019-11-11 07:19] LABS: Anion Gap 10 mmol/L (10-20); Carbon Dioxide 34 mmol/L (22-29); Chloride 98 mmol/L (98-107); Potassium 3.4 mmol/L (3.5-5.1); Sodium 139 mmol/L (136-145)
[2019-11-11] MEDS: Budesonide 0.5 MG/2 ML NEB INH SCH (07:20)
[2019-11-11 07:28] VITALS: BP 129/71; TEMP 98.4
[2019-11-11] MEDS ORDERED: predniSONE 20 MG TAB PO SCH (08:00)
[2019-11-11] MEDS: Amlodipine 10 MG TAB PO SCH (08:24)
[2019-11-11] MEDS: Benzonatate 100 MG CAP PO SCH (08:24)
[2019-11-11] MEDS: guaiFENesin ER 600 MG TAB PO SCH (08:24)
[2019-11-11] MEDS: Enoxaparin Sodium 40 MG/0.4 ML SYRINGE SC SCH (08:25)
[2019-11-11] MEDS: Montelukast Sodium 10 mg Tablet PO SCH (08:25)
--- NOTE | 2019-11-11 17:16 | DIS ---
DATE OF ADMISSION: 11/09/2019 DATE OF DISCHARGE: 11/11/2019 DISCHARGE DISPOSITION: Home. PRIMARY DISCHARGE DIAGNOSES: [id number] chronic obstructive pulmonary disease exacerbation and acute respiratory failure with hypoxia and hypercarbia, resolved. SECONDARY DISCHARGE DIAGNOSES: Diabetes mellitus type 2, on diet control; hypertension, dyslipidemia, and obesity. PROCEDURES DONE DURING HOSPITALIZATION: Chest x-ray done on the day of admission showed no active intrathoracic disease. White count of 7, H and H 11 and 35, platelet count 130, MCV is 88 with 57% neutrophils. Blood gas on arrival showed a pH of 7.25, pCO2 of 130, PO2 of 50, BUN 15, creatinine 0.4. Troponin x3 negative. BNP 17. DISCHARGE MEDICATIONS: 1. Prednisone 10 mg p.o. twice daily for 3 days. 2. DuoNeb q.6 hourly p.r.n. 3. Singulair 10 mg p.o. daily. 4. Norvasc 10 mg p.o. daily. 5. Trazodone 50 mg p.o. nightly. 6. Klonopin 1 mg p.o. twice daily. ALLERGIES: NO KNOWN DRUG ALLERGIES. INPATIENT CONSULT: Dr. Prasad for Pulmonology. DISCHARGE PLAN: The patient to follow up with her primary care physician, Dr. Tish Douglass in 1 week BRIEF COURSE DURING HOSPITALIZATION: The patient initially got admitted on the with complaints of shortness of breath. The patient has known history of chronic obstructive pulmonary disease, on home oxygen. She also wears a BiPAP at night. She was initially placed on BiPAP and admitted to ICU here for acute respiratory failure with hypoxia and hypercarbia. She was on steroids, nebulization, and has responded well. Prior to discharge, she is ambulating and is at her home dose of oxygen. She is wanting to go home today and will be shortly discharged. She needs to continue prednisone for another 2 days prior to discontinuing. She was also counseled with regard to tobacco cessation completely. Please note, I have seen and examined the patient on the day of discharge. Job ID: [id number] MTDD
== END 2019-11-11 11:07 | disposition home or self-care (01) | DRG 189 ==
LOC: ERS 06:20 → CCU 07:52 → T4-A 11-10 15:49
PROVIDERS: ADMIT Internal Medicine; ATTEND Internal Medicine
DX: J96.21 Acute and chronic respiratory failure with hypoxia (principal); J44.1 Chronic obstructive pulmonary disease with (acute) exacerbation; E87.2 Acidosis; E78.5 Hyperlipidemia, unspecified; E11.9 Type 2 diabetes mellitus without complications; J96.22 Acute and chronic respiratory failure with hypercapnia; E66.9 Obesity, unspecified; F17.210 Nicotine dependence, cigarettes, uncomplicated; G47.00 Insomnia, unspecified; I10 Essential (primary) hypertension; Z90.710 Acquired absence of both cervix and uterus; Z68.32 Body mass index [BMI] 32.0-32.9, adult
CPT/HCPCS: 36415; 36416; 80048; 82805; 85025; 94640; 94660; 94760; C9113; J1650; J2920; J7512; J7620; J7626